=== PATIENT | male | born 1965 | race African-American/Black ===

== ENCOUNTER 2016-07-03 09:12 | Inpatient (IN) | payer OTHER ==
[2016-07-03] MEDS ORDERED: ALBUTEROL SO4 2.5/IPRATROPIUM 0.5 INH SOL 3 ML VIAL.NEB. NEB ONE ×2 (09:36→18:59)
--- NOTE | 2016-07-03 09:37 | PDOC ---
History of Present Illness - General History Source: Patient, Old Records Exam Limitations: No Limitations - History of Present Illness Initial Comments: 07/03/16 09:43 The patient is a 51-year-old man with a significant past medical history of hypertension, asthma, insulin dependent diabetes mellitus, obesity, alcohol dependence and polysubstance abuse who presents to the emergency department via EMS for further evaluation of shortness of breath for the past week. Upon ED arrival, patient was noted to have a respiratory rate of 24 and an oxygen saturation of 96 percent on room air. Patient was immediately given a nebulizer treatment which he states did not help as much. He reports endorsing an upper respiratory infection with a runny nose, an intermittent productive cough with yellow phlegm and shortness of breath and orthopnea. Patient states that a common cold triggers his asthma and shortness of breath. He also reports associated chills and back pain. Despite compliance with his inhalers, patient still feels short of breath, thus presenting to the ED today. He admits he has not been complaint with his anti-hypertensive medications in over 1 week, He denies chest pain, lightheadedness, dizziness, visual changes, weakness and tinging sensations to his extremities, syncope. Patient states that he might be in withdrawal from heroin and requests Methadone. Last inpatient detox admission was 09/2015. Allergies: No Known Drug Allergies. Almonds Past Surgical History: Colostomy reversal. Hernia Repair. Left rotator cuff surgery. Social History: Former everyday cigarette smoker. ETOH use (patient consumes 1/ 5 of liquor daily). PCP (patient consumes 2 bags 1-2 bags/week). Cocaine ( patient consumes 1 gram daily). Heroin (sniffs; 2 bags everyday or every other day) Primary Care Physician: Dr. Johanna Pascual [phone] <Elinor Hurd - Last Filed: 07/03/16 13:09> <Joe Rojas - Last Filed: 07/03/16 15:31> - General Chief Complaint: Shortness of Breath Stated Complaint: SOB Time Seen by Provider: 07/03/16 09:16 Past History <Elinor Hurd - Last Filed: 07/03/16 13:09> - Past Medical History Anemia: No Asthma: Yes Cancer: No Cardiac Disorders: No CVA: No COPD: No CHF: No Dementia: No Diabetes: Yes GI Disorders: Yes (hernia) Disorders: No HTN: Yes Hypercholesterolemia: No Kidney Stones: No Liver Disease: No Suicide Attempt (Hx): No Seizures: No Thyroid Disease: No - Surgical History Abdominal Surgery: Yes (colostomy reversal 02/12/15, hernia) Appendectomy: No Cardiac Surgery: No Cholecystectomy: No Lung Surgery: No Neurologic Surgery: No Orthopedic Surgery: Yes (left rotator cuff surgery 2 years ago) - Reproductive History Testicular Surgery: No - Psycho/Social/Smoking Cessation Hx Anxiety: No Suicidal Ideation: No Smoking History: Current every day smoker Have you smoked in the past 12 months: Yes Number of Cigarettes Smoked Daily: 2 Cigars Per Day: 0 Information on smoking cessation initiated: No 'Breaking Loose' booklet given: 09/15/15 Hx Alcohol Use: Yes Drug/Substance Use Hx: Yes (heroin "sniff") Substance Use Type: Alcohol, Cocaine, Heroin Hx Substance Use Treatment: Yes <Joe Rojas - Last Filed: 07/03/16 15:31> - Past Medical History Allergies/Adverse Reactions: Allergies Allergy/AdvReac Type Severity Reaction Status Date / Time almond oil [[place] Oil] Allergy Unknown Allergy to Verified 09/15/15 12:55 Almonds No Known Drug Allergies Allergy Verified 09/15/15 12:55 ALMONDS Allergy Severe Rash Uncoded 09/15/15 12:55 Home Medications: Ambulatory Orders Montelukast Na [Singulair -] 10 mg PO HS #30 tablet 09/01/15 Atorvastatin Ca [Lipitor] 40 mg PO HS 09/15/15 Gabapentin [Neurontin -] 300 mg PO DAILY 09/15/15 Insulin (Novolog) [Novolog] 0 units SQ TID 09/15/15 Insulin Glargine,Hum.rec.anlog [Lantus Solostar PEN (NF)] 10 units SQ HS Lisinopril [Prinivil] 40 mg PO DAILY 09/15/15 Verapamil HCl [Verapamil ER] 240 mg PO DAILY 09/15/15 Review of Systems - Review of Systems Constitutional: Yes: Chills. No: Fever HEENTM: Yes: Nose Congestion Respiratory: Yes: Cough, Shortness of Breath, SOB with Exertion Cardiac (ROS): No: Chest Pain, Edema, Syncope ABD/GI: No: Diarrhea, Vomiting Psychiatric: Yes: Other (polysubstance abuse) <Joe Rojas - Last Filed: 07/03/16 15:31> *Physical Exam - Vital Signs Last Vital Signs Temp Pulse Resp BP Pulse Ox 97.4 F L 100 H 24 152/102 96 07/03/16 09:31 07/03/16 09:31 07/03/16 09:31 07/03/16 09:31 07/03/16 09:31 - Physical Exam Comments: 07/03/16 09:43 GENERAL: The patient is awake, alert, and fully oriented, in no acute distress. HEAD: Normal with no signs of trauma. EYES: Pupils equal, round and reactive to light, extraocular movements intact, sclera anicteric, conjunctiva clear with no pallor. ENT: Ears normal, nares patent, oropharynx clear without exudates. Moist mucous membranes. NECK: Normal range of motion, supple without lymphadenopathy, JVD, or masses. LUNGS: Coarse inspiratory breath sounds. Diffuse expiratory wheezes. No focal decreased breath sounds. Overall good air entry without accessory muscle use. HEART: Regular rate, slight tachycardia without murmur or rub. ABDOMEN: Soft/nontender/nondistended. BS wnl. No guarding or rebound. No palpable masses. No hepatosplenomegaly. EXTREMITIES: Normal range of motion, no edema. No clubbing or cyanosis. No cords, erythema, or tenderness. NEUROLOGICAL: Cranial nerves II through XII grossly intact. Normal speech. PSYCH: Normal mood, normal affect. SKIN: There is a ventral incisional hernia with healed surgical scars. Warm, Dry , normal turgor, no rashes or lesions noted. <Elinor Hurd - Last Filed: 07/03/16 13:09> - Vital Signs Last Vital Signs Temp Pulse Resp BP Pulse Ox 97.4 F L 100 H 24 152/102 96 07/03/16 09:31 07/03/16 09:31 07/03/16 09:31 07/03/16 09:31 07/03/16 09:31 <Joe Rojas - Last Filed: 07/03/16 15:31> Heart Score/ECG Review #1 ECG reviewed & interpreted by me at: 11:21 General ECG Interpretation: Sinus Rhythm, Normal Rate (105), Normal Intervals ( qtc 494), No acute ischemic changes (TWI AVL) Compared to previous ECG there are: No significant change (08/2015) <Joe Rojas - Last Filed: 07/03/16 15:31> ED Treatment Course - LABORATORY CBC & Chemistry Diagram: 07/03/16 10:15 07/03/16 10:15 - RADIOLOGY Radiograph Interpretation: 07/03/16 12:44 EXAM: RAD/CHEST PA LAT IMPRESSION: Frontal and lateral views of the chest reveal a normal sized heart with normal vascularity. The lung vee are clear without evidence of mass or infiltrate. The costophrenic sulci are clear. The mediastinal and soft tissue structures as visualized are normal. There is osteopenia of the dorsal spine with mild wedging. There is mixed lucency and sclerosis in the right humeral head raising the question of avascular necrosis. Consider specific views of the right shoulder. - Medications Given in the ED: ED Medications Discontinued Medications Generic Name Dose Route Start Last Admin Trade Name Freq PRN Reason Stop Dose Admin Albuterol/Ipratropium 1 amp 07/03/16 09:36 07/03/16 09:30 Duoneb - NEB 07/03/16 09:37 1 amp NOW ONE Administration <Elinor Hurd - Last Filed: 07/03/16 13:09> - LABORATORY CBC & Chemistry Diagram: 07/03/16 10:15 07/03/16 10:15 <Joe Rojas - Last Filed: 07/03/16 15:31> Medical Decision Making - Medical Decision Making 07/03/16 12:[address] Schafer. 07/03/16 13:[address] Schafer. Immediate connection. Case was discussed. <Elinor Hurd - Last Filed: 07/03/16 13:09> - Medical Decision Making 07/03/16 10:21 A portion of this note was documented by scribe services under my direction. I have reviewed the details of the note, within reason, and agree with the documentation with the following case summary and management plan written by me. 51-year-old male with history of hypertension, diabetes, polysubstance abuse, asthma presents with asthma exacerbation/worsening cough and shortness of breath in the setting of URI symptoms for the last week. No chest pain or pressure, no leg swelling. Vitals as noted, afebrile, O2 sat within normal limits. Positive dry cough at bedside, diffuse expiratory wheezing without focally decreased breath sounds No edema 51-year-old male with asthma exacerbation in the setting of likely viral URI. Has general noncompliance with his medications, hypertensive here, but does not appear to be ACS related. Rule out pneumonia. Labs Chest x-ray, EKG Nebulizers, steroids Reassess 07/03/16 11:35 No leukocytosis, chemistries are within normal limits except for insignificantly elevated transaminases, troponin negative. EKG is nonischemic, old T wave inversions noted in 1 and aVL. Received nebs, feels better now talking on his cell phone with friends. Check CXR, dispo accordingly. 07/03/16 12:32 Chest x-ray shows clear lungs, pt remains tachypneic with coarse breath sounds and diffuse wheezing. Feels very dyspneic walking 15ft to/from restroom. Will admit for further management. 07/03/16 13:07 Accepted for inpatient med/surg by Dr. Schafer. <Joe Rojas - Last Filed: 07/03/16 15:31> *DC/Admit/Observation/Transfer - Attestations Scribe Attestion: 07/03/16 09:44 Documentation prepared by Elinor Hurd, acting as medical care evaluation specialist for Joe Rojas MD. <Elinor Hurd - Last Filed: 07/03/16 13:09> - Discharge Dispostion Admit: Yes <Joe Rojas - Last Filed: 07/03/16 15:31> Diagnosis at time of Disposition: Asthma exacerbation - Referrals
[2016-07-03] MEDS ORDERED: predniSONE 20 MG TABLET (UD) PO ONE (10:07)
[2016-07-03] MEDS ORDERED: ALBUTEROL SO4 0.083% IH SOL 2.5 MG/3 ML VIAL.NEB. NEB PRN (10:12)
[2016-07-03] MEDS ORDERED: METHADONE HCL 10 MG TABLET PO ONE (10:14)
[2016-07-03] MEDS ORDERED: METHADONE HCL 10 MG TABLET ONE (10:22)
[2016-07-03] MEDS ORDERED: predniSONE 20 MG TABLET (UD) ONE (10:22)
[2016-07-03 10:38] LABS: BASOPHIL 1.4 % (0-2.0); EOSINOPHIL 2.4 % (0-4.5); MCH 27.4 pg (25.7-33.7); MCHC 31.4 g/dl (32.0-35.9); MEAN CELL VOLUME 87.2 fl (80-96); MEAN PLT VOLUME 7.5 fl (7.5-11.1); NEUTROPHILS 58.3 % (42.8-82.8); PLATELET COUNT 389 K/MM3 (134-434); RDW 17.1 % (11.9-15.9); WHITE BLOOD COUNT 8.7 K/mm3 (4.0-10.0)
[2016-07-03 10:52] LABS: ALBUMIN 3.5 g/dl (3.4-5.0); ANION GAP 4 (8-16); CALCIUM 9.3 mg/dL (8.5-10.1); CO2 31 mmol/L (21-32); CREATININE 1.1 mg/dL (0.7-1.3); GLUCOSE,RANDOM 127 mg/dL (74-106); SGOT/AST 44 U/L (15-37)
[2016-07-03 11:00] LABS: ALK PHOS 125 U/L (45-117); BILIRUBIN,TOTAL 0.7 mg/dL (0.2-1.0); SGPT/ALT 83 U/L (12-78); TROPONIN I < 0.02 ng/ml (0.00-0.05)
--- NOTE | 2016-07-03 11:48 | EKG ---
Test Reason : Blood Pressure : / mmHG Vent. Rate : 105 BPM Atrial Rate : 105 BPM P-R Int : 154 ms QRS Dur : 082 ms QT Int : 374 ms P-R-T Axes : 074 056 071 degrees QTc Int : 494 ms SINUS TACHYCARDIA CANNOT RULE OUT ANTERIOR INFARCT , AGE UNDETERMINED ABNORMAL ECG NO PREVIOUS ECGS AVAILABLE Confirmed by RADHA CARNEY MD ([id number]) on 07/03/2016 11:48:29 AM Referred By: Confirmed By:RADHA CARNEY MD
[2016-07-03] MEDS ORDERED: ALBUTEROL SO4 0.083% IH SOL 2.5 MG/3 ML VIAL.NEB. NEB ONE ×3 (12:37→15:31)
--- NOTE | 2016-07-03 14:15 | HP ---
Admitting History and Physical - Primary Care Physician PCP: Erasto Schafer - Admission Chief Complaint: sob History of Present Illness: The patient is a 51-year-old man with a significant past medical history of hypertension, asthma, insulin dependent diabetes mellitus, obesity, alcohol dependence and polysubstance abuse who presents to the emergency department via EMS for further evaluation of shortness of breath for the past week. Upon ED arrival, patient was noted to have a respiratory rate of 24 and an oxygen saturation of 96 percent on room air. Patient was immediately given a nebulizer treatment which he states did not help as much. He reports endorsing an upper respiratory infection with a runny nose, an intermittent productive cough with yellow phlegm and shortness of breath and orthopnea. - Past Medical History Cardiovascular: Yes: HTN Pulmonary: Yes: Asthma Endocrine: Yes: Diabetes Mellitus - Smoking History Smoking history: Current every day smoker Have you smoked in the past 12 months: Yes Aproximately how many cigarettes per day: 2 - Alcohol/Substance Use Hx Alcohol Use: Yes Home Medications - Allergies Allergies/Adverse Reactions: Allergies Allergy/AdvReac Type Severity Reaction Status Date / Time almond oil [[place] Oil] Allergy Unknown Allergy to Verified 09/15/15 12:55 Almonds No Known Drug Allergies Allergy Verified 09/15/15 12:55 ALMONDS Allergy Severe Rash Uncoded 09/15/15 12:55 - Home Medications Home Medications: Ambulatory Orders Montelukast Na [Singulair -] 10 mg PO HS #30 tablet 09/01/15 Atorvastatin Ca [Lipitor] 40 mg PO HS 09/15/15 Gabapentin [Neurontin -] 300 mg PO DAILY 09/15/15 Insulin (Novolog) [Novolog] 0 units SQ TID 09/15/15 Insulin Glargine,Hum.rec.anlog [Lantus Solostar PEN (NF)] 10 units SQ HS Lisinopril [Prinivil] 40 mg PO DAILY 09/15/15 Verapamil HCl [Verapamil ER] 240 mg PO DAILY 09/15/15 Family Disease History - Family Disease History Family Disease History: CA: Father () Physical Examination Vital Signs: Vital Signs Temperature 98.3 F 07/03/16 12:30 Pulse Rate 104 H 07/03/16 12:30 Respiratory Rate 22 07/03/16 12:30 Blood Pressure 151/82 07/03/16 12:30 O2 Sat by Pulse Oximetry (%) 96 07/03/16 12:30 Problem List - Problems (1) Asthma exacerbation Code(s): J45.901 - UNSPECIFIED ASTHMA WITH (ACUTE) EXACERBATION (2) Asthma Code(s): J45.909 - UNSPECIFIED ASTHMA, UNCOMPLICATED Qualifiers: (3) Alcohol dependence Code(s): F10.20 - ALCOHOL DEPENDENCE, UNCOMPLICATED Assessment/Plan Laboratory Tests 07/03/16 07/03/16 07/03/16 10:15 10:15 10:15 WBC 8.7 RBC 5.11 Hgb 14.0 D Hct 44.6 D MCV 87.2 MCHC 31.4 L RDW 17.1 H Plt Count 389 D MPV 7.5 Neutrophils % 58.3 Lymphocytes % 27.3 Monocytes % 10.6 H Eosinophils % 2.4 Basophils % 1.4 Sodium 135 L Cancelled Potassium 4.8 Cancelled Chloride 100 Cancelled Carbon Dioxide 31 Cancelled Anion Gap 4 L Cancelled BUN 6 L D Cancelled Creatinine 1.1 Cancelled Creat Clearance w eGFR > 60 Cancelled Random Glucose 127 H Cancelled Calcium 9.3 Cancelled Magnesium 2.0 Total Bilirubin 0.7 D Cancelled AST 44 H D Cancelled ALT 83 H D Cancelled Alkaline Phosphatase 125 H Cancelled Creatine Kinase 359 H Creatine Kinase Index 0.8 CK-MB (CK-2) 2.838 CK-MB (CK-2) Rel Index Troponin I < 0.02 Total Protein 8.0 Cancelled Albumin 3.5 Cancelled 07/03/16 10:15 WBC RBC Hgb Hct MCV MCHC RDW Plt Count MPV Neutrophils % Lymphocytes % Monocytes % Eosinophils % Basophils % Sodium Potassium Chloride Carbon Dioxide Anion Gap BUN Creatinine Creat Clearance w eGFR Random Glucose Calcium Magnesium Total Bilirubin AST ALT Alkaline Phosphatase Creatine Kinase Creatine Kinase Index CK-MB (CK-2) CK-MB (CK-2) Rel Index Cancelled Troponin I Total Protein Albumin Active Medications Generic Name Dose Route Start Last Admin Trade Name Freq PRN Reason Stop Dose Admin Atorvastatin Calcium 40 mg 07/03/16 22:00 Lipitor - PO HS EDITH Gabapentin 300 mg 07/04/16 10:00 Neurontin - PO DAILY EDITH Ceftriaxone Sodium 1 gm/ 100 mls @ 200 mls/hr 07/03/16 10:00 Dextrose IVPB 07/03/16 11:59 DAILY [facility] Lisinopril 40 mg 07/04/16 10:00 Prinivil PO DAILY [facility] Methylprednisolone Sodium Succinate 40 mg 07/03/16 18:00 Solu-Medrol - IVPB Q8H-IV EDITH Montelukast Sodium 10 mg 07/03/16 22:00 Singulair - PO HS [facility] Non-Formulary Medication 15 units 07/03/16 22:00 Insulin Glargine,Hum.Rec.Anlog SQ HS [facility] Verapamil HCl 240 mg 07/04/16 10:00 Calan Sr - PO DAILY [facility] 1.asthm aexacerbation iv steroids duo nebs 2.pna iv abx 3.dm insulin bgms 4.htn on meds stable 5.etoh dependance watch for withdrawl
[2016-07-03 14:54] VITALS: BMI 37.6
[2016-07-03] MEDS ORDERED: CEFTRIAXONE 50 ML ONE (15:41)
[2016-07-03] MEDS: CEFTRIAXONE 50 ML IVPB SCH (15:55)
[2016-07-03] MEDS: methylPREDNISolone NA SUCC 40 MG/1 ML VIAL IVPB SCH (18:00)
[2016-07-03] MEDS ORDERED: methylPREDNISolone NA SUCC 40 MG/1 ML VIAL ONE (18:09)
[2016-07-03] MEDS: ALBUTEROL SO4 2.5/IPRATROPIUM 0.5 INH SOL 3 ML VIAL.NEB. NEB PRN (18:50)
[2016-07-03] MEDS: ZOLPIDEM TARTRATE 5 MG TABLET PO PRN (21:37)
[2016-07-03] MEDS: ATORVASTATIN CA 20 MG TABLET (FP) PO SCH (21:37)
[2016-07-03] MEDS: MONTELUKAST NA 10 MG TABLET PO SCH (21:38)
[2016-07-03] MEDS: INSULIN DETEMIR 100 UNITS/ML MDV SQ SCH (21:41)
[2016-07-03] MEDS ORDERED: VERAPAMIL HCL 240 MG E.R. TABLET (FP) PO ONE (22:30)
[2016-07-03] MEDS ORDERED: ACETAMINOPHEN 325 MG TABLET (FP) PO PRN (23:44)
[2016-07-03] MEDS: oxyCODONE HCL 5 MG TABLET PO PRN (23:50)
[2016-07-03] MEDS: ACETAMINOPHEN 325 MG TABLET (FP) PO PRN (23:51)
[2016-07-04] MEDS: methylPREDNISolone NA SUCC 40 MG/1 ML VIAL IVPB SCH ×3 (01:28→17:05)
[2016-07-04] MEDS: ALBUTEROL SO4 2.5/IPRATROPIUM 0.5 INH SOL 3 ML VIAL.NEB. NEB PRN ×3 (03:36→16:57)
[2016-07-04] MEDS: oxyCODONE HCL 5 MG TABLET PO PRN ×3 (05:48→22:42)
[2016-07-04] MEDS: ACETAMINOPHEN 325 MG TABLET (FP) PO PRN ×2 (05:49→22:42)
[2016-07-04] MEDS: VERAPAMIL HCL 240 MG E.R. TABLET (FP) PO SCH (09:47)
[2016-07-04] MEDS: GABAPENTIN 300 MG CAPSULE (FP) PO SCH (09:47)
[2016-07-04] MEDS: LISINOPRIL 20 MG TABLET (FP) PO SCH (09:48)
[2016-07-04] MEDS: CEFTRIAXONE 50 ML IVPB SCH (09:48)
[2016-07-04] MEDS ORDERED: chlordiazePOXIDE HCL 25 MG CAPSULE PO ONE (11:14)
[2016-07-04] MEDS ORDERED: chlordiazePOXIDE HCL 25 MG CAPSULE PO PRN (11:14)
--- NOTE | 2016-07-04 11:18 | CONSULT ---
Consult Detox [facility] Reason for Current Admission/Consult: Heroin & Alcohol withdrawal sx. Referred by:: Erasto Schafer MD - History History of Present Illness: 51 Y/O man with a long hx. of drug & alcohol dependence is admitted because of chest pain & SOB. Pt. claims that he is using heroin since last year. Pt. is very agitated,anxious,sweating and c/o severe withdrawal sx. - History Source History Provided By: Patient, Medical Record - Alcohol/Substance Use Hx Alcohol Use: Yes - Current Drug/Alcohol Use Alcohol Route: Oral Frequency: Daily Amount used: [place]ognac 1-2 pints Age of first use: 22 Heroin Route: Inhalation Frequency: Daily Amount used: 3 bags Age of first use: 51 Date of Last Use: 07/02/16 - Past Medical History Cardio/Vascular: Yes: HTN Pulmonary: Yes: Asthma Endocrine: Yes: Diabetes Mellitus - Significant Medical Findings: Laboratory Tests 07/03/16 07/03/16 07/03/16 10:15 10:15 10:15 WBC 8.7 RBC 5.11 Hgb 14.0 D Hct 44.6 D MCV 87.2 MCHC 31.4 L RDW 17.1 H Plt Count 389 D MPV 7.5 Neutrophils % 58.3 Lymphocytes % 27.3 Monocytes % 10.6 H Eosinophils % 2.4 Basophils % 1.4 Sodium 135 L Cancelled Potassium 4.8 Cancelled Chloride 100 Cancelled Carbon Dioxide 31 Cancelled Anion Gap 4 L Cancelled BUN 6 L D Cancelled Creatinine 1.1 Cancelled Creat Clearance w eGFR > 60 Cancelled POC Glucometer Random Glucose 127 H Cancelled Calcium 9.3 Cancelled Magnesium 2.0 Total Bilirubin 0.7 D Cancelled AST 44 H D Cancelled ALT 83 H D Cancelled Alkaline Phosphatase 125 H Cancelled Creatine Kinase 359 H Creatine Kinase Index 0.8 CK-MB (CK-2) 2.838 CK-MB (CK-2) Rel Index Troponin I < 0.02 Total Protein 8.0 Cancelled Albumin 3.5 Cancelled 07/03/16 07/03/16 07/04/16 10:15 20:59 05:40 WBC RBC Hgb Hct MCV MCHC RDW Plt Count MPV Neutrophils % Lymphocytes % Monocytes % Eosinophils % Basophils % Sodium Potassium Chloride Carbon Dioxide Anion Gap BUN Creatinine Creat Clearance w eGFR POC Glucometer 192 267 Random Glucose Calcium Magnesium Total Bilirubin AST ALT Alkaline Phosphatase Creatine Kinase Creatine Kinase Index CK-MB (CK-2) CK-MB (CK-2) Rel Index Cancelled Troponin I Total Protein Albumin labs noted COWS - Scale Resting Pulse: 2= HI 101-120 Sweatin=Flushed/Facial Moisture Restless Observation: 1= Difficult to Sit Still Pupil Size: 1= Pupils >than Normal Bone or Joint Aches: 2= Severe Diffuse Aches Runny Nose/ Eye Tearin= Runny Nose/Eyes GI Upset > 30mins: 2= Nausea/Diarrhea Tremor Observation: 2= Slight Tremor Visible Yawning Observation: 1= 1-2x During Session Anxiety or Irritability: 2=Irritable/Anxious Goose Flesh Skin: 0=Smooth Skin COWS Score: 17 CIWA Score - CIWA Score Nausea/Vomitin-Mild Nausea/No Vomiting Muscle Tremors: 3 Anxiety: 4-Mod. Anxious/Guarded Agitation: 4-Moderately Restless Paroxysmal Sweats: 3 Orientation: 0-Oriented Tacttile Disturbances: 1-Very Mild Itch/Numbness Auditory Disturbances: 0-None Visual Disturbances: 0-None Headache: 0-None Present CIWA-Ar Total Score: 16 Assessment Plan - Diagnosis (1) Alcohol dependence with uncomplicated withdrawal Status: Acute (2) Opioid dependence with withdrawal Status: Acute - Plan Plan: Detox with methadone & librium - Medication Detox Regimen/Protocol: Methadone/Librium
[2016-07-04] MEDS ORDERED: METHADONE HCL 10 MG TABLET PO ONE (12:30)
--- NOTE | 2016-07-04 13:02 | CONSULT ---
Consult Consult Specialty:: infectious diseases Reason for Consultation:: pneumonia, - History of Present Illness Chief Complaint: sob History of Present Illness: 51-year-old man with a significant past medical history of hypertension, asthma , insulin dependent diabetes mellitus, obesity, alcohol dependence and polysubstance abuse who was admitted to the hospital because of tachypnoea and severe sob patient mentions that he was so sob and he took treatment which did not help him patient called adoption social worker and ambulance was called and patient was brought to the hospital patient also mentions that he has been producing yellowish tick sputum and he still is doing so patient denies fever he does sweat a lot and has always done so - History Source History Provided By: Patient Limitations to Obtaining History: No Limitations - Past Medical History Cardio/Vascular: Yes: HTN Pulmonary: Yes: Asthma Endocrine: Yes: Diabetes Mellitus - Alcohol/Substance Use Hx Alcohol Use: Yes - Smoking History Smoking history: Current every day smoker Have you smoked in the past 12 months: Yes Aproximately how many cigarettes per day: 2 Home Medications - Allergies Allergies/Adverse Reactions: Allergies Allergy/AdvReac Type Severity Reaction Status Date / Time almond oil [[place] Oil] Allergy Unknown Allergy to Verified 09/15/15 12:55 Almonds No Known Drug Allergies Allergy Verified 09/15/15 12:55 ALMONDS Allergy Severe Rash Uncoded 09/15/15 12:55 - Home Medications Home Medications: Ambulatory Orders Montelukast Na [Singulair -] 10 mg PO HS #30 tablet 09/01/15 Atorvastatin Ca [Lipitor] 40 mg PO HS 09/15/15 Gabapentin [Neurontin -] 300 mg PO DAILY 09/15/15 Insulin (Novolog) [Novolog] 0 units SQ TID 09/15/15 Insulin Glargine,Hum.rec.anlog [Lantus Solostar PEN (NF)] 10 units SQ HS Lisinopril [Prinivil] 40 mg PO DAILY 09/15/15 Verapamil HCl [Verapamil ER] 240 mg PO DAILY 09/15/15 Family Disease History - Family Disease History Family Disease History: CA: Father () Review of Systems - Review of Systems Constitutional: reports: Other Eyes: reports: No Symptoms HENT: reports: No Symptoms Neck: reports: No Symptoms Cardiovascular: reports: No Symptoms Respiratory: reports: Cough, SOB, SOB on Exertion, Wheezing Gastrointestinal: reports: No Symptoms Genitourinary: reports: No Symptoms Musculoskeletal: reports: No Symptoms Integumentary: reports: No Symptoms Neurological: reports: No Symptoms Endocrine: reports: No Symptoms Hematology/Lymphatic: reports: No Symptoms Psychiatric: reports: No Symptoms Physical Exam Vital Signs: Vital Signs Temperature 98.5 F 07/04/16 06:10 Pulse Rate 102 H 07/04/16 10:10 Respiratory Rate 22 07/04/16 09:49 Blood Pressure 174/95 07/04/16 09:49 O2 Sat by Pulse Oximetry (%) 97 07/04/16 10:10 Constitutional: Yes: Well Nourished, Obese Eyes: Yes: Conjunctiva Clear HENT: Yes: Atraumatic Neck: Yes: Supple, Trachea Midline Cardiovascular: Yes: Regular Rate and Rhythm Respiratory: Yes: Regular, Rhonchi, SOB, SOB on Exertion, Wheezes, Other ( yellow sputum production) Gastrointestinal: Yes: Normal Bowel Sounds, Soft Musculoskeletal: Yes: WNL Extremities: Yes: WNL Integumentary: Yes: WNL Wound/Incision: Yes: Clean/Dry Neurological: Yes: Alert, Oriented Psychiatric: Yes: Alert, Oriented Imaging - Results Chest X-ray: Report Reviewed, Image Reviewed Assessment/Plan Problems (1) Asthma exacerbation Code(s): J45.901 - UNSPECIFIED ASTHMA WITH (ACUTE) EXACERBATION (2) Asthma Code(s): J45.909 - UNSPECIFIED ASTHMA, UNCOMPLICATED Qualifiers: (3) Alcohol dependence Code(s): F10.20 - ALCOHOL DEPENDENCE, UNCOMPLICATED 4 pneumonia i have a strong suspicion patient mullins superimposed pneumonia. if the patient does not improve will get a ct scan of the chest plan incentive kerry changed abx to unasyn
[2016-07-04 13:56] LABS: URINE MARIJUANA THC NEGATIVE ng/ml (CUTOFF=50)
[2016-07-04] MEDS: AMPICILLIN NA/SULBACTAM NA 3 GM in SODIUM CHLORIDE 100 ML IVPB SCH ×2 (16:10→17:05)
[2016-07-04] MEDS: chlordiazePOXIDE HCL 25 MG CAPSULE PO SCH ×2 (17:05→22:43)
--- NOTE | 2016-07-04 19:48 | PN ---
Progress Note, Physician - Current Medication List Current Medications: Active Medications Acetaminophen (Tylenol -) 325 mg PO Q6H PRN PRN Reason: PAIN Last Admin: 07/04/16 11:04 Dose: 325 mg Acetaminophen (Tylenol -) 650 mg PO Q6H PRN PRN Reason: PAIN Last Admin: 07/04/16 05:49 Dose: 650 mg Albuterol/Ipratropium (Duoneb -) 1 amp NEB Q4H PRN Last Admin: 07/04/16 16:57 Dose: 1 amp Atorvastatin Calcium (Lipitor -) 20 mg PO [facility] Last Admin: 07/03/16 21:37 Dose: 20 mg Chlordiazepoxide HCl (Librium -) 25 mg PO Q4H PRN PRN Reason: WITHDRAWAL(CONT SUBST) Stop: 07/07/16 11:13 Chlordiazepoxide HCl (Librium -) 50 mg PO [id number] [facility] Stop: 07/05/16 11:01 Last Admin: 07/04/16 17:05 Dose: 50 mg Chlordiazepoxide HCl (Librium -) 25 mg PO [id number] [facility] Stop: 07/06/16 11:01 Chlordiazepoxide HCl (Librium -) 15 mg PO [id number] [facility] Stop: 07/07/16 11:01 Gabapentin (Neurontin -) 300 mg PO DAILY [facility] Last Admin: 07/04/16 09:47 Dose: 300 mg Ampicillin Sodium/Sulbactam (Sodium 3 gm/ Sodium Chloride) 100 mls @ 200 mls/ hr IVPB Q8H-IV [facility] Last Admin: 07/04/16 17:05 Dose: 200 mls/hr Insulin Detemir (Levemir Vial) 15 units SQ [facility] Last Admin: 07/03/16 21:41 Dose: 15 units Lisinopril (Prinivil) 40 mg PO DAILY [facility] Last Admin: 07/04/16 09:48 Dose: 40 mg Methadone HCl (Dolophine -) 10 mg PO ONCE ONE Stop: 07/07/16 10:01 Methadone HCl (Dolophine -) 15 mg PO ONCE ONE Stop: 07/05/16 23:59 Methadone HCl (Dolophine -) 5 mg PO ONCE@0600 ONE Stop: 07/08/16 23:59 Methylprednisolone Sodium Succinate (Solu-Medrol -) 40 mg IVPB Q8H-IV [facility] Last Admin: 07/04/16 17:05 Dose: 40 mg Montelukast Sodium (Singulair -) 10 mg PO HS [facility] Last Admin: 07/03/16 21:38 Dose: 10 mg Oxycodone HCl (Roxicodone -) 5 mg PO Q6H PRN PRN Reason: PAIN Last Admin: 07/04/16 11:04 Dose: 5 mg Oxycodone HCl (Roxicodone -) 10 mg PO Q6H PRN PRN Reason: PAIN Last Admin: 07/04/16 05:48 Dose: 10 mg Verapamil HCl (Calan Sr -) 240 mg PO DAILY [facility] Last Admin: 07/04/16 09:47 Dose: 240 mg Zolpidem Tartrate (Ambien -) 5 mg PO HS PRN PRN Reason: INSOMNIA Last Admin: 07/03/16 21:37 Dose: 5 mg - Objective Vital Signs: Vital Signs Temperature 98.5 F 07/04/16 14:25 Pulse Rate 99 H 07/04/16 14:25 Respiratory Rate 22 07/04/16 09:49 Blood Pressure 146/96 07/04/16 14:25 O2 Sat by Pulse Oximetry (%) 95 07/04/16 14:00 Constitutional: Yes: No Distress HENT: Yes: Atraumatic Neck: Yes: Supple Cardiovascular: Yes: Regular Rate and Rhythm Respiratory: Yes: CTA Bilaterally Gastrointestinal: Yes: Normal Bowel Sounds Extremities: Yes: WNL Neurological: Yes: Alert, Oriented Problem List - Problems (1) Asthma exacerbation Code(s): J45.901 - UNSPECIFIED ASTHMA WITH (ACUTE) EXACERBATION (2) Asthma Code(s): J45.909 - UNSPECIFIED ASTHMA, UNCOMPLICATED Qualifiers: (3) Alcohol dependence Code(s): F10.20 - ALCOHOL DEPENDENCE, UNCOMPLICATED Assessment/Plan 1.asthm aexacerbation iv steroids duo nebs 2.pna iv abx 3.dm insulin bgms 4.htn on meds stable 5.etoh dependance watch for withdrawl 6.on metadone and librium
[2016-07-04] MEDS: ZOLPIDEM TARTRATE 5 MG TABLET PO PRN (21:19)
[2016-07-04] MEDS: ATORVASTATIN CA 20 MG TABLET (FP) PO SCH (21:19)
[2016-07-04] MEDS: MONTELUKAST NA 10 MG TABLET PO SCH (21:20)
[2016-07-04] MEDS: INSULIN DETEMIR 100 UNITS/ML MDV SQ SCH (21:24)
[2016-07-04] MEDS ORDERED: INSULIN (NOVOLOG) ASPART 100 UNITS/ML 10ML VIAL SQ ONE (21:45)
[2016-07-05] MEDS ORDERED: PT OWN MED DRAWER 7, Y5N ONE ×2 (01:32→10:13)
[2016-07-05] MEDS: AMPICILLIN NA/SULBACTAM NA 3 GM in SODIUM CHLORIDE 100 ML IVPB SCH ×3 (01:39→18:02)
[2016-07-05] MEDS: methylPREDNISolone NA SUCC 40 MG/1 ML VIAL IVPB SCH ×4 (01:40→21:08)
[2016-07-05] MEDS: chlordiazePOXIDE HCL 25 MG CAPSULE PO SCH ×4 (06:19→23:24)
[2016-07-05] MEDS: ALBUTEROL SO4 2.5/IPRATROPIUM 0.5 INH SOL 3 ML VIAL.NEB. NEB PRN ×2 (07:02→09:40)
[2016-07-05] MEDS ORDERED: METHADONE HCL 5 MG TABLET PO ONE (10:00)
[2016-07-05] MEDS: GABAPENTIN 300 MG CAPSULE (FP) PO SCH (10:14)
[2016-07-05] MEDS: VERAPAMIL HCL 240 MG E.R. TABLET (FP) PO SCH (10:14)
[2016-07-05] MEDS: LISINOPRIL 20 MG TABLET (FP) PO SCH (10:14)
--- NOTE | 2016-07-05 13:36 | CON.PULM ---
Consult Consult Specialty:: PULMONARY Referred by:: JOHANN Reason for Consultation:: SOB/ASTHMA - History of Present Illness Chief Complaint: SOB/COUGH/WHEEZE History of Present Illness: 51 BLACK MALE WITH H/O COPD,ACTIVE SMOKING,RECENT [facility] VIA PSG AT [facility],DOES NOT HAVE NIVPPV OF YET M. OBESITY,IDDM,HTN PRESENTS TO ER WITH COUGH/WHEEZE/SOB/SCANT SPUTUM NO FEVER POSSIBLE SICK CONTACTS. - History Source History Provided By: Patient, Medical Record Limitations to Obtaining History: No Limitations - Past Medical History TRAFFIC REPORTER: No: Alzheimer's Cardio/Vascular: Yes: HTN. No: AFIB Pulmonary: Yes: Asthma Hepatobiliary: No: Cirrhosis Renal/: No: Renal Failure Heme/Onc: No: Anemia Psych: Yes: Addictions Musculoskeletal: No: Chronic low back pain ENT: No: Allergic Rhinitis Endocrine: Yes: Diabetes Mellitus - Alcohol/Substance Use Hx Alcohol Use: Yes - Smoking History Smoking history: Current every day smoker Have you smoked in the past 12 months: Yes Aproximately how many cigarettes per day: 2 - Social History Usual Living Arrangement: Alone Place of : [facility] Home Medications - Allergies Allergies/Adverse Reactions: Allergies Allergy/AdvReac Type Severity Reaction Status Date / Time almond oil [[place] Oil] Allergy Unknown Allergy to Verified 09/15/15 12:55 Almonds No Known Drug Allergies Allergy Verified 09/15/15 12:55 ALMONDS Allergy Severe Rash Uncoded 09/15/15 12:55 - Home Medications Home Medications: Ambulatory Orders Montelukast Na [Singulair -] 10 mg PO HS #30 tablet 09/01/15 Atorvastatin Ca [Lipitor] 40 mg PO HS 09/15/15 Gabapentin [Neurontin -] 300 mg PO DAILY 09/15/15 Insulin (Novolog) [Novolog] 0 units SQ TID 09/15/15 Insulin Glargine,Hum.rec.anlog [Lantus Solostar PEN (NF)] 10 units SQ HS Lisinopril [Prinivil] 40 mg PO DAILY 09/15/15 Verapamil HCl [Verapamil ER] 240 mg PO DAILY 09/15/15 Family Disease History - Family Disease History Family Disease History: CA: Father () Review of Systems - Review of Systems Constitutional: denies: Fever Eyes: denies: Blurred Vision HENT: denies: Difficult Swallowing Neck: denies: Decreased ROM Cardiovascular: reports: Palpitations, Shortness of Breath. denies: Chest Pain Respiratory: reports: Cough, Exercise Intolerance, SOB on Exertion, Wheezing. denies: Hemoptysis Gastrointestinal: denies: Abdominal Pain Genitourinary: reports: No Symptoms Breasts: reports: No Symptoms Reported Musculoskeletal: reports: No Symptoms Integumentary: reports: No Symptoms Neurological: reports: No Symptoms Endocrine: reports: No Symptoms Hematology/Lymphatic: reports: No Symptoms Psychiatric: reports: No Symptoms Physical Exam Vital Sings: Vital Signs Temperature 98.0 F 07/05/16 09:00 Pulse Rate 94 H 07/05/16 09:40 Respiratory Rate 20 07/05/16 09:00 Blood Pressure 162/100 07/05/16 09:00 O2 Sat by Pulse Oximetry (%) 94 L 07/05/16 09:40 Constitutional: Yes: Calm Eyes: Yes: EOM Intact HENT: Yes: Normocephalic Neck: Yes: Trachea Midline Cardiovascular: Yes: Regular Rate and Rhythm, S1, S2 Respiratory: Yes: Rhonchi, Wheezes Gastrointestinal: Yes: Soft, Abdomen, Obese Edema: LLE: 1+, RLE: 1+ Integumentary: Yes: WNL Neurological: Yes: WNL ...Motor Strength: WNL Psychiatric: Yes: WNL Labs: REVIEWED Imaging - Results Chest X-ray: Image Reviewed EKG: Report Reviewed Problem List - Problems (1) COPD exacerbation Code(s): J44.1 - CHRONIC OBSTRUCTIVE PULMONARY DISEASE W (ACUTE) EXACERBATION (2) Asthma exacerbation Code(s): J45.901 - UNSPECIFIED ASTHMA WITH (ACUTE) EXACERBATION (3) Bronchitis Code(s): J40 - BRONCHITIS, NOT SPECIFIED ACUTE OR CHRONIC (4) Sleep apnea syndrome Code(s): G47.30 - SLEEP APNEA, UNSPECIFIED Assessment/Plan AGREE WITH STEROIDS/BRONCHODILATORS/ANTIBIOTICS/O2 SUPPLEMENTATION/SLEEP APNEA SCREEN ORDERED WITHDRAWAL PROTOCOL/DIABETES MANAGEMENT WILL FOLLOW Bebe GONZALEZ MD
[2016-07-05] MEDS ORDERED: INSULIN (NOVOLOG) ASPART 100 UNITS/ML 10ML VIAL SQ ONE ×2 (15:30→17:00)
--- NOTE | 2016-07-05 15:42 | PN ---
Progress Note, Physician History of Present Illness: stable no new events - Current Medication List Current Medications: Active Medications Acetaminophen (Tylenol -) 325 mg PO Q6H PRN PRN Reason: PAIN Last Admin: 07/04/16 11:04 Dose: 325 mg Acetaminophen (Tylenol -) 650 mg PO Q6H PRN PRN Reason: PAIN Last Admin: 07/04/16 22:42 Dose: 650 mg Albuterol[facility]pratropium ([facility]) [facility] Atorvastatin Calcium (Lipitor -) 20 mg PO [facility] Last Admin: 07/04/16 21:19 Dose: 20 mg Chlordiazepoxide HCl (Librium -) 25 mg PO Q4H PRN PRN Reason: WITHDRAWAL(CONT SUBST) Stop: 07/07/16 11:13 Chlordiazepoxide HCl (Librium -) 25 mg PO [id number] [facility] Stop: 07/06/16 11:01 Chlordiazepoxide HCl (Librium -) 15 mg PO Q8O-RRT [facility] Stop: 07/07/16 11:01 Gabapentin (Neurontin -) 300 mg PO DAILY [facility] Last Admin: 07/05/16 10:14 Dose: 300 mg Ampicillin Sodium/Sulbactam (Sodium 3 gm/ Sodium Chloride) 100 mls @ 200 mls/ hr IVPB Q8H-IV [facility] Last Admin: 07/05/16 10:14 Dose: 200 mls/hr Insulin Detemir (Levemir Vial) 15 units SQ [facility] Last Admin: 07/04/16 21:24 Dose: 15 units Lisinopril (Prinivil) 40 mg PO DAILY [facility] Last Admin: 07/05/16 10:14 Dose: 40 mg Methadone HCl (Dolophine -) 10 mg PO ONCE ONE Stop: 07/07/16 10:01 Methadone HCl (Dolophine -) 15 mg PO ONCE ONE Stop: 07/05/16 23:59 Last Admin: 07/05/16 11:22 Dose: 15 mg Methadone HCl (Dolophine -) 5 mg PO ONCE@0600 ONE Stop: 07/08/16 23:59 Methylprednisolone Sodium Succinate (Solu-Medrol -) 40 mg IVPB Q6H-IV [facility] Last Admin: 07/05/16 15:24 Dose: 40 mg Montelukast Sodium (Singulair -) 10 mg PO [facility] Last Admin: 07/04/16 21:20 Dose: 10 mg Oxycodone HCl (Roxicodone -) 5 mg PO Q6H PRN PRN Reason: PAIN Last Admin: 07/04/16 11:04 Dose: 5 mg Oxycodone HCl (Roxicodone -) 10 mg PO Q6H PRN PRN Reason: PAIN Last Admin: 07/04/16 22:42 Dose: 10 mg Verapamil HCl (Calan Sr -) 240 mg PO DAILY [facility] Last Admin: 07/05/16 10:14 Dose: 240 mg Zolpidem Tartrate (Ambien -) 5 mg PO HS PRN PRN Reason: INSOMNIA Last Admin: 07/04/16 21:19 Dose: 5 mg - Objective Vital Signs: Vital Signs Temperature 98.1 F 07/05/16 14:27 Pulse Rate 97 H 07/05/16 14:27 Respiratory Rate 20 07/05/16 09:00 Blood Pressure 160/57 07/05/16 14:27 O2 Sat by Pulse Oximetry (%) 94 L 07/05/16 09:40 Constitutional: Yes: No Distress, Calm Cardiovascular: Yes: Regular Rate and Rhythm Respiratory: Yes: Regular, Rhonchi, Wheezes (better) Gastrointestinal: Yes: Normal Bowel Sounds, Soft Musculoskeletal: Yes: WNL Extremities: Yes: WNL Neurological: Yes: Alert, Oriented Psychiatric: Yes: Alert Assessment/Plan Problems (1) Asthma exacerbation Code(s): J45.901 - UNSPECIFIED ASTHMA WITH (ACUTE) EXACERBATION (2) Asthma Code(s): J45.909 - UNSPECIFIED ASTHMA, UNCOMPLICATED Qualifiers: (3) Alcohol dependence Code(s): F10.20 - ALCOHOL DEPENDENCE, UNCOMPLICATED 4 pneumonia pul on case plan incentive kerry ct abx
[2016-07-05] MEDS: ALBUTEROL SO4 2.5/IPRATROPIUM 0.5 INH SOL 3 ML VIAL.NEB. NEB SCH ×2 (18:09→23:30)
--- NOTE | 2016-07-05 19:28 | PN ---
Progress Note, Physician - Current Medication List Current Medications: Active Medications Acetaminophen (Tylenol -) 325 mg PO Q6H PRN PRN Reason: PAIN Last Admin: 07/04/16 11:04 Dose: 325 mg Acetaminophen (Tylenol -) 650 mg PO Q6H PRN PRN Reason: PAIN Last Admin: 07/04/16 22:42 Dose: 650 mg Albuterol/Ipratropium (Duoneb -) 1 amp NEB [facility] Last Admin: 07/05/16 18:09 Dose: 1 amp Atorvastatin Calcium (Lipitor -) 20 mg PO [facility] Last Admin: 07/04/16 21:19 Dose: 20 mg Chlordiazepoxide HCl (Librium -) 25 mg PO Q4H PRN PRN Reason: WITHDRAWAL(CONT SUBST) Stop: 07/07/16 11:13 Chlordiazepoxide HCl (Librium -) 25 mg PO [id number] [facility] Stop: 07/06/16 11:01 Last Admin: 07/05/16 18:02 Dose: 25 mg Chlordiazepoxide HCl (Librium -) 15 mg PO Q3N-[facility] Stop: 07/07/16 11:01 Gabapentin (Neurontin -) 300 mg PO DAILY [facility] Last Admin: 07/05/16 10:14 Dose: 300 mg Ampicillin Sodium/Sulbactam (Sodium 3 gm/ Sodium Chloride) 100 mls @ 200 mls/ hr IVPB Q8H-IV [facility] Last Admin: 07/05/16 18:02 Dose: 200 mls/hr Insulin Aspart (Novolog Vial Sliding Scale -) 1 vial SQ [facility] PRN Reason: Protocol Insulin Detemir (Levemir Vial) 15 units SQ [facility] Last Admin: 07/04/16 21:24 Dose: 15 units Lisinopril (Prinivil) 40 mg PO DAILY [facility] Last Admin: 07/05/16 10:14 Dose: 40 mg Methadone HCl (Dolophine -) 10 mg PO ONCE ONE Stop: 07/07/16 10:01 Methadone HCl (Dolophine -) 15 mg PO ONCE ONE Stop: 07/05/16 23:59 Last Admin: 07/05/16 11:22 Dose: 15 mg Methadone HCl (Dolophine -) 5 mg PO ONCE@0600 ONE Stop: 07/08/16 23:59 Methylprednisolone Sodium Succinate (Solu-Medrol -) 40 mg IVPB Q6H-IV [facility] Last Admin: 07/05/16 15:24 Dose: 40 mg Montelukast Sodium (Singulair -) 10 mg PO HS [facility] Last Admin: 07/04/16 21:20 Dose: 10 mg Oxycodone HCl (Roxicodone -) 5 mg PO Q6H PRN PRN Reason: PAIN Last Admin: 07/04/16 11:04 Dose: 5 mg Oxycodone HCl (Roxicodone -) 10 mg PO Q6H PRN PRN Reason: PAIN Last Admin: 07/04/16 22:42 Dose: 10 mg Verapamil HCl (Calan Sr -) 240 mg PO DAILY [facility] Last Admin: 07/05/16 10:14 Dose: 240 mg Zolpidem Tartrate (Ambien -) 5 mg PO HS PRN PRN Reason: INSOMNIA Last Admin: 07/04/16 21:19 Dose: 5 mg - Objective Vital Signs: Vital Signs Temperature 98.1 F 07/05/16 14:27 Pulse Rate 97 H 07/05/16 14:27 Respiratory Rate 20 07/05/16 09:00 Blood Pressure 160/57 07/05/16 14:27 O2 Sat by Pulse Oximetry (%) 94 L 07/05/16 14:00 Constitutional: Yes: No Distress Eyes: Yes: WNL HENT: Yes: Atraumatic Neck: Yes: Supple Respiratory: Yes: Rhonchi Gastrointestinal: Yes: Normal Bowel Sounds Extremities: Yes: WNL Neurological: Yes: Alert, Oriented Problem List - Problems (1) Asthma exacerbation Code(s): J45.901 - UNSPECIFIED ASTHMA WITH (ACUTE) EXACERBATION (2) Asthma Code(s): J45.909 - UNSPECIFIED ASTHMA, UNCOMPLICATED Qualifiers: (3) Alcohol dependence Code(s): F10.20 - ALCOHOL DEPENDENCE, UNCOMPLICATED Assessment/Plan 1.asthm aexacerbation iv steroids duo nebs 2.pna iv abx 3.dm insulin bgms...blood sugar very high, pt non compliant with food 4.htn on meds stable 5.etoh dependance watch for withdrawl 6.on metadone and librium
[2016-07-05] MEDS ORDERED: INSULIN (NOVOLOG) ASPART 100 UNITS/ML 10ML VIAL ONE (21:07)
[2016-07-05] MEDS: MONTELUKAST NA 10 MG TABLET PO SCH (21:08)
[2016-07-05] MEDS: INSULIN DETEMIR 100 UNITS/ML MDV SQ SCH (21:08)
[2016-07-05] MEDS: INSULIN SLIDING SCALE (NOVOLOG) 1 VIAL SQ SCH (21:08)
[2016-07-05] MEDS: ZOLPIDEM TARTRATE 5 MG TABLET PO PRN (21:08)
[2016-07-05] MEDS: ATORVASTATIN CA 20 MG TABLET (FP) PO SCH (21:08)
[2016-07-06] MEDS ORDERED: PT OWN MED DRAWER 7, Y5N ONE ×2 (02:49→09:16)
[2016-07-06] MEDS: AMPICILLIN NA/SULBACTAM NA 3 GM in SODIUM CHLORIDE 100 ML IVPB SCH ×2 (03:01→09:16)
[2016-07-06] MEDS: methylPREDNISolone NA SUCC 40 MG/1 ML VIAL IVPB SCH ×3 (03:02→14:51)
[2016-07-06] MEDS: INSULIN SLIDING SCALE (NOVOLOG) 1 VIAL SQ SCH ×2 (06:23→11:21)
[2016-07-06] MEDS: chlordiazePOXIDE HCL 25 MG CAPSULE PO SCH ×2 (06:24→10:30)
[2016-07-06] MEDS: ALBUTEROL SO4 2.5/IPRATROPIUM 0.5 INH SOL 3 ML VIAL.NEB. NEB SCH ×3 (07:22→13:59)
[2016-07-06 09:00] VITALS: TEMP 98.7
[2016-07-06] MEDS: LISINOPRIL 20 MG TABLET (FP) PO SCH (09:13)
[2016-07-06] MEDS: VERAPAMIL HCL 240 MG E.R. TABLET (FP) PO SCH (09:13)
[2016-07-06] MEDS: GABAPENTIN 300 MG CAPSULE (FP) PO SCH (09:13)
[2016-07-06 09:44] LABS: MCH 27.9 pg (25.7-33.7); MCHC 31.7 g/dl (32.0-35.9); MEAN CELL VOLUME 87.9 fl (80-96); MEAN PLT VOLUME 7.2 fl (7.5-11.1); PLATELET COUNT 409 K/MM3 (134-434); RDW 17.3 % (11.9-15.9); WHITE BLOOD COUNT 20.5 K/mm3 (4.0-10.0)
[2016-07-06] MEDS ORDERED: METHADONE HCL 10 MG TABLET PO ONE (10:00)
[2016-07-06 10:09] LABS: ALBUMIN 3.3 g/dl (3.4-5.0); ANION GAP 5 (8-16); CALCIUM 9.2 mg/dL (8.5-10.1); CO2 32 mmol/L (21-32); CREATININE 1.1 mg/dL (0.7-1.3); SGOT/AST 11 U/L (15-37); SGPT/ALT 49 U/L (12-78)
[2016-07-06 10:11] LABS: ALK PHOS 235 U/L (45-117); BILIRUBIN,TOTAL 0.2 mg/dL (0.2-1.0); TOT PROT 7.7 g/dl (6.4-8.2)
[2016-07-06 10:25] LABS: GLUCOSE,RANDOM 385 mg/dL (74-106)
[2016-07-06] MEDS ORDERED: INSULIN (NOVOLOG) ASPART 100 UNITS/ML 10ML VIAL ONE (11:19)
[2016-07-06 12:11] LABS: PLATELET ESTIMATE ADEQUATE (NORMAL)
[2016-07-06] MEDS ORDERED: amLODIPine BESYLATE 10 MG TABLET (FP) PO ONE (13:45)
--- NOTE | 2016-07-06 14:10 | CON.CARD ---
Consult Consult Specialty:: Cardiology Referred by:: Dr. Schafer Reason for Consultation:: HTN urgency - History of Present Illness Chief Complaint: SOB History of Present Illness: 51 year old man with a history of HTN, Asthma, DMII, Obesity, FELIBERTO, polysubstance abuse including heroin, etoh, PCP, Cocaine admitted with SOB, tachypnea, orthopnea, chills, and back pain, and HTN urgency with reported noncompliance with medications for >1week. Being treated for AE COPD/Asthma. Asked to evaluate for uncontrolled HTN. Pt. seen and examined today in nad. Pt. sitting on side of bed. pt is a poor historian, awake and alert but does not provide a clear history. admits to using heroin last on sunday. denies using any other drugs including cocaine. states he takes his medication everyday. states he feels better since admission. less sob. denies any chest pain, palpitations, lightheadedness, dizziness, syncope, near syncope. no edema. - History Source History Provided By: Patient, Medical Record Limitations to Obtaining History: Poor Historian - Past Medical History Cardio/Vascular: Yes: HTN Pulmonary: Yes: Asthma Psych: Yes: Addictions Endocrine: Yes: Diabetes Mellitus - Alcohol/Substance Use Hx Alcohol Use: Yes - Smoking History Smoking history: Current every day smoker Have you smoked in the past 12 months: Yes Aproximately how many cigarettes per day: 2 - Social History Usual Living Arrangement: Alone History of Recent Travel: No Home Medications - Allergies Allergies/Adverse Reactions: Allergies Allergy/AdvReac Type Severity Reaction Status Date / Time almond oil [[place] Oil] Allergy Unknown Allergy to Verified 09/15/15 12:55 Almonds No Known Drug Allergies Allergy Verified 09/15/15 12:55 ALMONDS Allergy Severe Rash Uncoded 09/15/15 12:55 - Home Medications Home Medications: Ambulatory Orders Montelukast Na [Singulair -] 10 mg PO HS #30 tablet 09/01/15 Atorvastatin Ca [Lipitor] 40 mg PO HS 09/15/15 Gabapentin [Neurontin -] 300 mg PO DAILY 09/15/15 Insulin (Novolog) [Novolog] 0 units SQ TID 09/15/15 Insulin Glargine,Hum.rec.anlog [Lantus Solostar PEN (NF)] 10 units SQ HS Lisinopril [Prinivil] 40 mg PO DAILY 09/15/15 Verapamil HCl [Verapamil ER] 240 mg PO DAILY 09/15/15 Family Disease History - Family Disease History Family Disease History: CA: Father () Review of Systems - Review of Systems Constitutional: reports: Chills. denies: No Symptoms, Diaphoresis, Fever, Lethargy, Loss of Appetite, Malaise, Night Sweats, Unintentional Wgt. Loss, Weakness, Other Eyes: denies: No Symptoms, Blind Spots, Blurred Vision, Double Vision, Eye Pain , Floaters, Photophobia, Recent Change in Vision, Other HENT: denies: No Symptoms, Difficult Swallowing, Ear Discharge, Ear Pain, Epistaxis, Gingival Bleeding, Hearing Loss, Mouth Swelling, Nasal Congestion, Ocular Prosthesis, Throat Pain, Toothache, Ringing in Ears, Other Neck: denies: No Symptoms, Decreased ROM, Lumps, Pain on Movement, Stiffness, Swollen Glands, Tenderness, Other Cardiovascular: denies: No Symptoms, Chest Pain, Edema, Palpitations, Shortness of Breath, Other Respiratory: reports: PND, SOB, SOB on Exertion. denies: No Symptoms, Cough, Exercise Intolerance, Hemoptysis, Orthopnea, Snoring, Wheezing, Other Gastrointestinal: denies: No Symptoms, Abdominal Pain, Bloating, Constipation, Diarrhea, Dysphagia, Indigestion, Melena, Nausea, Rectal Bleeding, Vomiting, Vomiting Blood, Other Genitourinary: denies: No Symptoms, Burning, Discharge, Dysuria, Flank Pain, Frequency, Hematuria, Incontinence, Lesions, Menses, Pain, Testicular Mass, Testicular Pain, Testicular Swelling, Urgency, Vaginal Bleeding, Other Breasts: denies: No Symptoms Reported, See HPI, Breast Implants, Discharge from Nipple, Lumps, Pain, Skin Changes, Other Musculoskeletal: denies: No Symptoms, Back Pain, Crepitus, Decreased ROM, Extremity Pain, Joint Pain, Joint Swelling, Muscle Pain, Muscle Cramps, Muscle Weakness, Other Integumentary: denies: No Symptoms, Blister, Bruising, Change in Color, Eczema, Erythema, Incision, Lesions, Lump, Pallor, Pruritis, Rash, Wound, Other Neurological: denies: No Symptoms, Change in LOC, Change in Speech, Confusion, Dizziness, Headache, Incoordination, Numbness, Parasthesia, Pre-Existing Deficit , Seizure, Syncope, Tremors, Unsteady Gait, Weakness, Other Endocrine: denies: No Symptoms, Excessive Sweating, Flushing, Increased Hunger, Increased Thirst, Intolerance to Cold, Intolerance to Heat, Unexplained Weight Gain, Unexplained Weight Loss, Other Hematology/Lymphatic: denies: No Symptoms, Easily Bruised, Excessive Bleeding, Swollen Glands, Other Psychiatric: denies: No Symptoms, Altered Sleep Pattern, Anxiety, Depression, Hallucinations, Panic, Paranoia, Suicidal, Other - Risk Factors Known Risk Factors: Yes: Diabetes Mellitus, Hypertension Vital Signs: Vital Signs Temperature 98.7 F 07/06/16 08:58 Pulse Rate 105 H 07/06/16 13:24 Respiratory Rate 20 07/06/16 13:24 Blood Pressure 172/113 07/06/16 13:24 O2 Sat by Pulse Oximetry (%) 94 L 07/06/16 09:00 Constitutional: Yes: No Distress, Anxious, Obese Eyes: Yes: Conjunctiva Clear, EOM Intact, PERRL HENT: Yes: Atraumatic, Normocephalic Neck: Yes: Supple, Trachea Midline Respiratory: Yes: Regular, Wheezes. No: Rales, Rhonchi Gastrointestinal: Yes: WNL, Normal Bowel Sounds, Soft. No: Distention, Tenderness Renal/: Yes: WNL Cardiovascular: Yes: Regular Rate and Rhythm. No: Bradycardia, Tachycardia, Pulse Irregular, Gallop, Rub, Varicosities JVD: No Carotid Bruit: No PMI: Non-Displaced Heart Sounds: Yes: S1, S2. No: Split S2, S3, S4, Clicks, Gallop, Rub, Bruit Murmur: No: Systolic Murmur, Diastolic Murmur Musculoskeletal: Yes: WNL Extremities: Yes: WNL Edema: No Peripheral Pulses WNL: Yes Peripheral Pulses: 2+ Left Doralis Pedis, 2+ Right Dorsalis Pedis Integumentary: Yes: WNL Neurological: Yes: Alert, Oriented Psychiatric: Yes: Alert, Oriented - Other Data Labs, Other Data: CBC, BMP 07/06/16 09:20 07/06/16 09:20 ekg-sinus tach 105bpm, poor R progression, NSST Echo: Pending Imaging - Results Chest X-ray: Report Reviewed, Image Reviewed EKG: Report Reviewed, Image Reviewed Other: Report Reviewed, Image Reviewed Assessment/Plan 51 year old man with a history of HTN, Asthma, DMII, Obesity, FELIBERTO, polysubstance abuse including heroin, etoh, PCP, Cocaine admitted with SOB, tachypnea, orthopnea, chills, and back pain, and HTN urgency with reported noncompliance with medications for >1week. Being treated for AE COPD/Asthma. Asked to evaluate for uncontrolled HTN. HTN- uncontrolled -cont Lisinopril 40mg daily -stop verapamil -start nifedipine xl 30mg bid -start HCTZ 25mg daily -uptitrate nifedipine as needed -avoid bblockers due to cocaine use
--- NOTE | 2016-07-06 14:51 | PN ---
Progress Note, Physician History of Present Illness: no new events stable - Current Medication List Current Medications: Active Medications Acetaminophen (Tylenol -) 325 mg PO Q6H PRN PRN Reason: PAIN Last Admin: 07/04/16 11:04 Dose: 325 mg Acetaminophen (Tylenol -) 650 mg PO Q6H PRN PRN Reason: PAIN Last Admin: 07/04/16 22:42 Dose: 650 mg Albuterol/Ipratropium (Duoneb -) 1 amp [facility] Last Admin: 07/06/16 13:59 Dose: 1 amp Atorvastatin Calcium (Lipitor -) 20 mg PO [facility] Last Admin: 07/05/16 21:08 Dose: 20 mg Chlordiazepoxide HCl (Librium -) 15 mg PO [id number] Stop: 07/07/16 11:01 Gabapentin (Neurontin -) 300 mg PO DAILY [facility] Last Admin: 07/06/16 09:13 Dose: 300 mg Ampicillin Sodium/Sulbactam (Sodium 3 gm/ Sodium Chloride) 100 mls @ 200 mls/ hr IVPB Q8H-IV [facility] Last Admin: 07/06/16 09:16 Dose: 200 mls/hr Insulin Aspart (Novolog Vial Sliding Scale -) 1 vial SQ [facility] PRN Reason: Protocol Last Admin: 07/06/16 11:21 Dose: 14 units Insulin Detemir (Levemir Vial) 15 units SQ [facility] Last Admin: 07/05/16 21:08 Dose: 15 units Lisinopril (Prinivil) 40 mg PO DAILY [facility] Last Admin: 07/06/16 09:13 Dose: 40 mg Methadone HCl (Dolophine -) 15 mg PO ONCE ONE Stop: 07/05/16 23:59 Last Admin: 07/05/16 11:22 Dose: 15 mg Methadone HCl (Dolophine -) 5 mg PO ONCE@0600 ONE Stop: 07/07/16 06:01 Methylprednisolone Sodium Succinate (Solu-Medrol -) 40 mg IVPB Q6H-IV [facility] Last Admin: 07/06/16 14:51 Dose: 40 mg Montelukast Sodium (Singulair -) 10 mg PO [facility] Last Admin: 07/05/16 21:08 Dose: 10 mg Oxycodone HCl (Roxicodone -) 5 mg PO Q6H PRN PRN Reason: PAIN Last Admin: 07/04/16 11:04 Dose: 5 mg Oxycodone HCl (Roxicodone -) 10 mg PO Q6H PRN PRN Reason: PAIN Last Admin: 07/04/16 22:42 Dose: 10 mg Verapamil HCl (Calan Sr -) 240 mg PO DAILY [facility] Last Admin: 07/06/16 09:13 Dose: 240 mg Zolpidem Tartrate (Ambien -) 5 mg PO HS PRN PRN Reason: INSOMNIA Last Admin: 07/05/16 21:08 Dose: 5 mg - Objective Vital Signs: Vital Signs Temperature 98.7 F 07/06/16 08:58 Pulse Rate 105 H 07/06/16 13:24 Respiratory Rate 20 07/06/16 13:24 Blood Pressure 172/113 07/06/16 13:24 O2 Sat by Pulse Oximetry (%) 94 L 07/06/16 09:00 Constitutional: Yes: No Distress, Calm Cardiovascular: Yes: Regular Rate and Rhythm Respiratory: Yes: Regular, Poor Air Entry Gastrointestinal: Yes: Normal Bowel Sounds, Soft Musculoskeletal: Yes: WNL Extremities: Yes: WNL Neurological: Yes: Alert, Oriented Psychiatric: Yes: Alert Labs: CBC, BMP 07/06/16 09:20 07/06/16 09:20 Assessment/Plan Problems (1) Asthma exacerbation Code(s): J45.901 - UNSPECIFIED ASTHMA WITH (ACUTE) EXACERBATION (2) Asthma Code(s): J45.909 - UNSPECIFIED ASTHMA, UNCOMPLICATED Qualifiers: (3) Alcohol dependence Code(s): F10.20 - ALCOHOL DEPENDENCE, UNCOMPLICATED 4 pneumonia pul on case plan incentive kerry ct abx will consider deescalating soon rest as per the team
--- NOTE | 2016-07-06 15:28 | PN ---
Progress Note (short form) - Note Progress Note: PULMONARY VSS/AFEBRILE ANICTERIC CLEAR S1S2 OBESE NO EDEMA LABS/MEDS/NOTES/IMAGING REVIEWED - Problems (1) COPD exacerbation resolved Code(s): J44.1 - CHRONIC OBSTRUCTIVE PULMONARY DISEASE W (ACUTE) EXACERBATION (2) Asthma exacerbation resolved Code(s): J45.901 - UNSPECIFIED ASTHMA WITH (ACUTE) EXACERBATION (3) Bronchitis Code(s): J40 - BRONCHITIS, NOT SPECIFIED ACUTE OR CHRONIC (4) Sleep apnea syndrome Code(s): G47.30 - SLEEP APNEA, UNSPECIFIED Assessment/Plan agree with continuing treatment as an outpatient Bebe GONZALEZ MD Problem List - Problems (1) COPD exacerbation Code(s): J44.1 - CHRONIC OBSTRUCTIVE PULMONARY DISEASE W (ACUTE) EXACERBATION (2) Asthma exacerbation Code(s): J45.901 - UNSPECIFIED ASTHMA WITH (ACUTE) EXACERBATION (3) Bronchitis Code(s): J40 - BRONCHITIS, NOT SPECIFIED ACUTE OR CHRONIC (4) Sleep apnea syndrome Code(s): G47.30 - SLEEP APNEA, UNSPECIFIED
[2016-07-06 15:44] VITALS: BP 183/106; PULSE 107
[2016-07-06] MEDS ORDERED: predniSONE 20 MG TABLET (UD) PO SCH (15:45)
[2016-07-06] MEDS ORDERED: HYDROCHLOROTHIAZIDE 25 MG TABLET (FP) PO SCH (16:15)
--- NOTE | 2016-07-06 16:19 | DS ---
Physical Examination Vital Signs: Vital Signs Temperature 98.7 F 07/06/16 08:58 Pulse Rate 107 H 07/06/16 15:43 Respiratory Rate 20 07/06/16 15:43 Blood Pressure 183/106 07/06/16 15:43 O2 Sat by Pulse Oximetry (%) 94 L 07/06/16 09:00 Labs: CBC, BMP 07/06/16 09:20 07/06/16 09:20 Discharge Summary Reason For Visit: EXACERBATION OF ASTHMA Current Active Problems Alcohol dependence with uncomplicated withdrawal (Acute) Asthma exacerbation (Acute) Bronchitis (Acute) COPD exacerbation (Acute) Opioid dependence with withdrawal (Acute) Sleep apnea syndrome (Acute) - Instructions Diet, Activity, Other Instructions: Please Call Respiratory Department [phone] for Sleep Consultation appointment for Patient Referrals: Johanna Pascual [Primary Care Provider] - - Home Medications Comprehensive Discharge Medication List: Ambulatory Orders Montelukast Na [Singulair -] 10 mg PO HS #30 tablet 09/01/15 Atorvastatin Ca [Lipitor] 40 mg PO HS 09/15/15 Gabapentin [Neurontin -] 300 mg PO DAILY 09/15/15 Insulin (Novolog) [Novolog] 0 units SQ TID 09/15/15 Insulin Glargine,Hum.rec.anlog [Lantus Solostar PEN (NF)] 10 units SQ HS Lisinopril [Prinivil] 40 mg PO DAILY 09/15/15 Verapamil HCl [Verapamil ER] 240 mg PO DAILY 09/15/15 PT ELOPED
[2016-07-06] MEDS ORDERED: chlordiazePOXIDE 5 MG CAPSULE PO SCH (17:00)
[2016-07-06] MEDS ORDERED: NIFEdipine E.R. 30 MG TABLET (FP) PO SCH (22:00)
[2016-07-07] MEDS ORDERED: METHADONE HCL 5 MG TABLET PO ONE (06:00)
[2016-07-07] MEDS ORDERED: METHADONE HCL 10 MG TABLET PO ONE (10:00)
[2016-07-08] MEDS ORDERED: METHADONE HCL 5 MG TABLET PO ONE (06:00)
== END 2016-07-06 16:51 | disposition left against medical advice (07) | DRG 141 ==
LOC: JER 09:12 → JERBED 13:07 → INTOOBSV 13:11 → UNDOADMOB 13:11 → JERBED 13:11 → J6S 18:31 → OBSVTOIN 07-04 17:32
PROVIDERS: ADMIT Internal Medicine; ATTEND Internal Medicine
DX: J45.901 Unspecified asthma with (acute) exacerbation (principal); J44.1 Chronic obstructive pulmonary disease with (acute) exacerbation; F10.230 Alcohol dependence with withdrawal, uncomplicated; F11.23 Opioid dependence with withdrawal; J20.9 Acute bronchitis, unspecified; G47.30 Sleep apnea, unspecified; E11.9 Type 2 diabetes mellitus without complications; E66.9 Obesity, unspecified; Z68.37 Body mass index [BMI] 37.0-37.9, adult; I16.0 Hypertensive urgency; F17.210 Nicotine dependence, cigarettes, uncomplicated; Z79.4 Long term (current) use of insulin; J18.9 Pneumonia, unspecified organism
CPT/HCPCS: 36415; 71020-TC; 80053; 80307; 82550; 82553; 83735; 84484; 85025; 93005; 93010; 93306-TC; 94150; 94640; 99282-25; G0378

== ENCOUNTER 2016-07-09 01:40 | Emergency (ER) | payer OTHER ==
[2016-07-09 02:03] VITALS: BP 143/86; BMI 32.1
[2016-07-09] MEDS ORDERED: ALBUTEROL SO4 2.5/IPRATROPIUM 0.5 INH SOL 3 ML VIAL.NEB. NEB ONE ×2 (02:32→02:39)
--- NOTE | 2016-07-09 02:32 | PDOC ---
History of Present Illness - General Chief Complaint: Altered Mental Status Stated Complaint: ALTERED MENATL STATUS Time Seen by Provider: 07/09/16 01:53 History Source: Patient Exam Limitations: No Limitations - History of Present Illness Timing/Duration: reports: just prior to arrival Past History - Travel Traveled outside of the country in the last 30 days: No Close contact w/someone who was outside of country & ill: No - Past Medical History Allergies/Adverse Reactions: Allergies Allergy/AdvReac Type Severity Reaction Status Date / Time almond oil [[place] Oil] Allergy Unknown Allergy to Verified 07/09/16 01:59 Almonds No Known Drug Allergies Allergy Verified 07/09/16 01:59 ALMONDS Allergy Severe Rash Uncoded 07/09/16 01:59 Home Medications: Ambulatory Orders Azithromycin [Zithromax -] 250 mg PO UTDICT #6 tab 07/09/16 Anemia: No Asthma: Yes Cancer: No Cardiac Disorders: No CVA: No COPD: No CHF: No Dementia: No Diabetes: Yes GI Disorders: Yes (hernia) Disorders: No HTN: Yes Hypercholesterolemia: No Kidney Stones: No Liver Disease: No Suicide Attempt (Hx): No Seizures: No Thyroid Disease: No - Surgical History Abdominal Surgery: Yes (colostomy reversal 02/12/15, hernia) Appendectomy: No Cardiac Surgery: No Cholecystectomy: No Lung Surgery: No Neurologic Surgery: No Orthopedic Surgery: Yes (left rotator cuff surgery 2 years ago) - Reproductive History Testicular Surgery: No - Psycho/Social/Smoking Cessation Hx Anxiety: No Suicidal Ideation: No Smoking History: Unknown if ever smoked Have you smoked in the past 12 months: Yes Number of Cigarettes Smoked Daily: 2 Cigars Per Day: 0 Information on smoking cessation initiated: No 'Breaking Loose' booklet given: 09/15/15 Hx Alcohol Use: Yes Drug/Substance Use Hx: Yes Substance Use Type: Opiates Hx Substance Use Treatment: Yes Respiratory Specific PMHX - Complaint Specific PMHX TB (Tuberculosis): No Review of Systems - Review of Systems Able to Perform ROS?: Yes Comments:: 07/09/16 04:26 CONSTITUTIONAL: Absent: fever, chills, diaphoresis, generalized weakness, malaise, loss of appetite HEENT: Absent: rhinorrhea, nasal congestion, throat pain, throat swelling, difficulty swallowing, mouth swelling, ear pain, eye pain, visual Changes CARDIOVASCULAR: Absent: chest pain, loss of consciousness, palpitations, irregular heart rate, peripheral edema RESPIRATORY: +cough Absent: shortness of breath, dyspnea with exertion, orthopnea, wheezing, stridor , hemoptysis GASTROINTESTINAL: Absent: abdominal pain, abdominal distension, nausea, vomiting, diarrhea, constipation, melena, hematochezia GENITOURINARY: Absent: dysuria, frequency, urgency, hesitancy, hematuria, flank pain, genital pain MUSCULOSKELETAL: Absent: myalgia, arthralgia, joint swelling SKIN: Absent: rash, itching, pallor HEMATOLOGIC/IMMUNOLOGIC: Absent: easy bleeding, easy bruising, lymphadenopathy, frequent infections ENDOCRINE: Absent: unexplained weight gain, unexplained weight loss, heat intolerance, cold intolerance NEUROLOGIC: Absent: headache, focal weakness or paresthesias, dizziness, unsteady gait, seizure, mental status changes, bladder or bowel incontinence PSYCHIATRIC: Absent: anxiety, depression, suicidal or homicidal ideation, hallucinations. Is the patient limited Latvian proficient: No *Physical Exam - Vital Signs Last Vital Signs Temp Pulse Resp BP Pulse Ox 94 F L 110 H 18 143/86 96 07/09/16 01:56 07/09/16 01:56 07/09/16 01:56 07/09/16 01:56 07/09/16 01:56 - Physical Exam Comments: 07/09/16 04:26 GENERAL: Well developed, well nourished. Awake and alert. No acute distress. HEENT: Normocephalic, atraumatic. PERRLA, EOMI. No conjunctival pallor. Sclera are non- icteric. Moist mucous membranes. Oropharynx is clear. NECK: Supple. Full ROM. No JVD. Carotid pulses 2+ and symmetric, without bruits. No thyromegaly. No lymphadenopathy. CARDIOVASCULAR: Regular rate and rhythm. No murmurs, rubs, or gallops. Distal pulses are 2+ and symmetric. PULMONARY: right and left lower exp wheezes No evidence of respiratory distress. No wheezing, rales or rhonchi. ABDOMINAL: Soft. Non-tender. Non-distended. No rebound or guarding. No organomegaly. Normoactive bowel sounds. MUSCULOSKELETAL Normal range of motion at all joints. No bony deformities or tenderness. No CVA tenderness. EXTREMITIES: No cyanosis. No clubbing. No edema. No calf tenderness. SKIN: Warm and dry. Normal capillary refill. No rashes. No jaundice. NEUROLOGICAL: Alert, awake, appropriate. Cranial nerves 2-12 intact. No deficits to light touch and temperature in face, upper extremities and lower extremities. No motor deficits in the in face, upper extremities and lower extremities. Normoreflexic in the upper and lower extremities. Normal speech. Toes are down- going bilaterally. Gait is normal without ataxia. PSYCHIATRIC: Cooperative. Good eye contact. Appropriate mood and affect. ED Treatment Course - RADIOLOGY Radiograph Interpretation: 07/09/16 05:24 RLL infiltrate Progress Note - Progress Note Progress Note: 51 yo M Pmhx with a history of asthma, hypertension, insulin-dependent diabetes mellitus, alcohol and polysubstance abuse presents to the emergency department complaining of shortness of breath 6 hours. Patient states he was not able to give himself a treatment because he was out with some friends. He reports that he's been not feeling well recently with an upper respiratory infection, rhinorrhea, chest pains, abdominal pains, urinary symptoms: Frequency/urgency/ hesitancy or hematuria. He states he's been coughing for the past 2 days and describes it as a yellowish productive cough. *DC/Admit/Observation/Transfer Diagnosis at time of Disposition: RLL pneumonia Qualifiers: Pneumonia type: due to unspecified organism Qualified Code(s): J18.9 - Pneumonia, unspecified organism - Discharge Dispostion Disposition: HOME Condition at time of disposition: Stable Admit: No - Prescriptions Prescriptions: Azithromycin [Zithromax -] 250 mg PO UTDICT #6 tab - Referrals Referrals: STAFF,NOT ON [Primary Care Provider] - Basil Alvarez MD [Staff Physician] - - Patient Instructions Printed Discharge Instructions: Pneumonia-Adult Additional Instructions: Take your zpak Take tylenol/motrin as needed Return to the ER for severe/persistent/worsening symptoms
[2016-07-09] MEDS ORDERED: predniSONE 20 MG TABLET (UD) PO ONE (03:38)
[2016-07-09] MEDS ORDERED: predniSONE 20 MG TABLET (UD) ONE (03:39)
[2016-07-09 04:26] VITALS: PULSE 106; TEMP 98.2
[2016-07-09] MEDS ORDERED: AZITHROMYCIN 250 MG TABLET (FP) PO ONE (04:39)
[2016-07-09] MEDS ORDERED: AZITHROMYCIN 250 MG TABLET (FP) ONE (04:40)
== END 2016-07-09 05:04 | disposition home or self-care (01) ==
LOC: JER 01:40
DX: J18.9 Pneumonia, unspecified organism (principal); I10 Essential (primary) hypertension; J45.909 Unspecified asthma, uncomplicated; E11.9 Type 2 diabetes mellitus without complications; F10.10 Alcohol abuse, uncomplicated; F19.10 Other psychoactive substance abuse, uncomplicated
CPT/HCPCS: 70450-TC; 71010-TC; 99282-25

== ENCOUNTER 2016-07-12 21:22 | Inpatient (IN) | payer OTHER ==
--- NOTE | 2016-07-12 21:47 | PDOC ---
[id number] 4d No Limitations - History of Present Illness Initial Comments: 07/12/16 21:54 The patient is a 51 year old male with significant past medical history of drug abuse (heroin), hypertension, diabetes, and asthma who presents to the ED BIBA for SOB. Patient admits to doing heroin today and shortly after he started to develope SOB with wheezing and dry cough. The patient denies fever, chills, diaphoresis, lightheadedness, chest pain, and palpitations. The patient denies abdominal pain, nausea, vomiting, and diarrhea. Allergies: NKDA Social History: current smoker (half pack per day), drug use (heroin) Past Surgical History: colostomy reversal 02/12/15, hernia repair, left rotator cuff surgery PCP: None reported <Rafaela Albarran - Last Filed: 07/13/16 00:14> - General History Source: Patient <Kieran Avila - Last Filed: 07/13/16 19:42> - General Chief Complaint: Asthma Stated Complaint: ASTHMA Time Seen by Provider: 07/12/16 21:47 Past History <Rafaela Albarran - Last Filed: 07/13/16 00:14> - Past Medical History Anemia: No Asthma: Yes Cancer: No Cardiac Disorders: No CVA: No COPD: No CHF: No Dementia: No Diabetes: Yes GI Disorders: Yes (hernia) Disorders: No HTN: Yes Hypercholesterolemia: No Kidney Stones: No Liver Disease: No Suicide Attempt (Hx): No Seizures: No Thyroid Disease: No - Surgical History Abdominal Surgery: Yes (colostomy reversal 02/12/15, hernia) Appendectomy: No Cardiac Surgery: No Cholecystectomy: No Lung Surgery: No Neurologic Surgery: No Orthopedic Surgery: Yes (left rotator cuff surgery 2 years ago) - Reproductive History Testicular Surgery: No - Psycho/Social/Smoking Cessation Hx Anxiety: No Suicidal Ideation: No Smoking History: Unknown if ever smoked Have you smoked in the past 12 months: Yes Number of Cigarettes Smoked Daily: 2 Cigars Per Day: 0 'Breaking Loose' booklet given: 09/15/15 Hx Alcohol Use: Yes Drug/Substance Use Hx: Yes Substance Use Type: Opiates Hx Substance Use Treatment: Yes <Kieran Avila - Last Filed: 07/13/16 19:42> - Past Medical History Allergies/Adverse Reactions: Allergies Allergy/AdvReac Type Severity Reaction Status Date / Time almond oil [[place] Oil] Allergy Unknown Allergy to Verified 07/12/16 21:31 Almonds No Known Drug Allergies Allergy Verified 07/12/16 21:31 ALMONDS Allergy Severe Rash Uncoded 07/12/16 21:31 Home Medications: Ambulatory Orders Insulin (Novolog) [Novolog Flexpen] 0 units SQ AC 07/12/16 Insulin Glargine,Hum.rec.anlog [Lantus (nf)] 10 units SQ HS 07/12/16 Amlodipine Besylate [Amlodipine Besylate] 10 mg PO DAILY 07/13/16 Lisinopril [Lisinopril] 07/13/16 Review of Systems - Review of Systems Able to Perform ROS?: Yes Comments:: 07/12/16 21:54 CONSTITUTIONAL: Absent: fever, no chills, no fatigue EYES: Absent: visual changes ENT: Absent: ear pain, no sore throat CARDIOVASCULAR: Absent: chest pain, no palpitations RESPIRATORY: +SOB, wheezing, cough GI: Absent: abdominal pain, no nausea, no vomiting, no constipation, no diarrhea GENITOURINARY: Absent: dysuria, no frequency, no hematuria MUSKULOSKELETAL: Absent: back pain, no arthralgia, no myalgia SKIN: Absent: rash NEURO: Absent: headache <Rafaela Albarran - Last Filed: 07/13/16 00:14> *Physical Exam - Vital Signs Last Vital Signs Temp Pulse Resp BP Pulse Ox 98.4 F 100 H 20 165/94 100 07/12/16 21:31 07/12/16 21:31 07/12/16 21:31 07/12/16 21:31 07/12/16 21:31 - Physical Exam Comments: 07/12/16 21:54 GENERAL: Well-appearing, well-nourished. No apparent distress. HEENT: Normocephalic, atraumatic. PERRL, EOM intact. CARDIOVASCULAR: Normal S1, S2. Regular rate and rhythm. PULMONARY: No evidence of respiratory distress. Diffuse wheezing bilaterally. No conversational dyspnea. ABDOMEN: Soft, non-distended, non-tender. EXTREMITIES: Normal ROM in all four extremities. No gross deformities. SKIN: Warm, dry. No rash NEUROLOGICAL: No focal neurological deficits. <Rafaela Albarran - Last Filed: 07/13/16 00:14> - Vital Signs Last Vital Signs Temp Pulse Resp BP Pulse Ox 98.4 F 100 H 20 165/94 100 07/12/16 21:31 07/12/16 21:31 07/12/16 21:31 07/12/16 21:31 07/12/16 21:31 <Kieran Avila - Last Filed: 07/13/16 19:42> Heart Score/ECG Review - ECG Impressions Comment:: 07/13/16 00:14 NSR @98bpm Nonspecific T wave abnormality Prolonged QT Abnormal ECG <Rafaela Albarran - Last Filed: 07/13/16 00:14> ED Treatment Course - LABORATORY CBC & Chemistry Diagram: 07/12/16 22:40 07/12/16 22:40 <Rafaela Albarran - Last Filed: 07/13/16 00:14> - LABORATORY CBC & Chemistry Diagram: 07/13/16 06:00 07/13/16 06:00 <Kieran Avila - Last Filed: 07/13/16 19:42> Medical Decision Making - Medical Decision Making 07/13/16 19:41 Dr. Avila: The scribe's documentation has been prepared under my direction and personally reviewed by me in its entirery. I confirm that the note above accurately reflects all work, treatment, procedures, and medical decision making performed by me. pt required admission due continuing wheezing and SOB. Admitted to [facility] <Kieran Avila - Last Filed: 07/13/16 19:42> *DC/Admit/Observation/Transfer - Attestations Scribe Attestion: 07/12/16 21:55 Documentation prepared by Rafaela Albarran, acting as medical device sales for Kieran Avila MD <Rafaela Albarran - Last Filed: 07/13/16 00:14> - Discharge Dispostion Admit: Yes <Kieran Avila - Last Filed: 07/13/16 19:42> Diagnosis at time of Disposition: Asthma exacerbation
[2016-07-12] MEDS ORDERED: ALBUTEROL SO4 2.5/IPRATROPIUM 0.5 INH SOL 3 ML VIAL.NEB. NEB STA ×2 (21:49→23:22)
[2016-07-12] MEDS ORDERED: methylPREDNISolone NA SUCC 125 MG/2 ML VIAL IVPB ONE (21:49)
[2016-07-12] MEDS ORDERED: MAGNESIUM SULF 50% (8.12 MEQ/2 ML-1 GM VIAL) IVPB ONE (21:49)
[2016-07-12] MEDS ORDERED: MAGNESIUM SULF 50% (8.12 MEQ/2 ML-1 GM VIAL) ONE (22:49)
[2016-07-12] MEDS ORDERED: methylPREDNISolone NA SUCC 125 MG/2 ML VIAL ONE (22:49)
[2016-07-12] MEDS ORDERED: ALBUTEROL SO4 2.5/IPRATROPIUM 0.5 INH SOL 3 ML VIAL.NEB. NEB ONE (22:49)
[2016-07-12 22:56] LABS: BASOPHIL 1.2 % (0-2.0); EOSINOPHIL 2.5 % (0-4.5); MCH 27.7 pg (25.7-33.7); MCHC 31.8 g/dl (32.0-35.9); MEAN CELL VOLUME 87.1 fl (80-96); MEAN PLT VOLUME 7.5 fl (7.5-11.1); NEUTROPHILS 55.5 % (42.8-82.8); PLATELET COUNT 234 K/MM3 (134-434); WHITE BLOOD COUNT 10.6 K/mm3 (4.0-10.0)
[2016-07-12 23:20] LABS: URINE APPEARANCE CLEAR; URINE BILIRUBIN NEGATIVE (NEGATIVE); URINE BLOOD NEGATIVE (NEGATIVE); URINE COLOR LTYELLOW; URINE GLUCOSE (UA) 2+ (NEGATIVE); URINE KETONE NEGATIVE (NEGATIVE); URINE LEUK ESTERASE NEGATIVE (NEGATIVE); URINE NITRITE NEGATIVE (NEGATIVE); URINE PROTEIN NEGATIVE (NEGATIVE); URINE UROBILINOGEN 2.0 E.U/dl E.U./dl (0.2-1.0)
[2016-07-12 23:28] LABS: ALBUMIN 3.1 g/dl (3.4-5.0); ANION GAP 6 (8-16); BILIRUBIN,TOTAL 0.2 mg/dL (0.2-1.0); CALCIUM 8.5 mg/dL (8.5-10.1); CO2 32 mmol/L (21-32); CREATININE 0.9 mg/dL (0.7-1.3); GLUCOSE,RANDOM 140 mg/dL (74-106); MAGNESIUM 1.8 mg/dL (1.8-2.4); SGOT/AST 45 U/L (15-37); SGPT/ALT 96 U/L (12-78); TOT PROT 6.6 g/dl (6.4-8.2)
[2016-07-12 23:30] LABS: ALK PHOS 102 U/L (45-117)
[2016-07-12 23:33] LABS: INR 1.1 (0.82-1.09); PROTHROMBIN TIME (PATIENT) 12.1 SEC (9.98-11.88)
[2016-07-13] MEDS ORDERED: ACETAMINOPHEN 325 MG TABLET (FP) PO PRN (00:13)
--- NOTE | 2016-07-13 00:21 | HP ---
CHIEF COMPLAINT:SOB PCP: HISTORY OF PRESENT ILLNESS: 51 yo M with a PMHx of drug abuse (heroin), hypertension, diabetes, HLD and asthma who presents with SOB for 1 day. Patient reports he was sniffing heroin earlier today and subsequently developing SOB, wheezing and a coarse dry cough. Denies sick contacts. Patient has a history of intubation in his childhood. Patient has been hospitalized for asthma exacerbation twice in 2017. Peak flow of 200. Patient doesnt know max. Patient is noncompliant with home medications. Denies CP, BAJWA , abd. pain, palpitations, n/v. ER course was notable for: (1)CXR- no acute pathology (2)Peak flow of 200 (3)Given 3 round duonebs and 125 solumedrol IV- SpO2 s/p treatment- 97% 2L NC Recent Travel: PAST MEDICAL HISTORY: drug abuse (heroin), hypertension, diabetes, HLD and asthma PAST SURGICAL HISTORY:Hernia repair 2006, Colostomy reversal 02/2015 Social History: Smoking:current 0.5ppd use Alcohol:social Drugs: heroin(snorted) Family History: Allergies almond oil [[place] Oil] Allergy (Unknown, Verified 07/12/16 21:31) Allergy to Almonds No Known Drug Allergies Allergy (Verified 07/12/16 21:31) ALMONDS Allergy (Severe, Uncoded 07/12/16 21:31) Rash HOME MEDICATIONS: Home Medications Medication Instructions Recorded Insulin (Novolog) [Novolog Flexpen] 0 units SQ AC 07/12/16 Insulin Glargine,Hum.rec.anlog 10 units SQ HS 07/12/16 [Lantus (nf)] REVIEW OF SYSTEMS CONSTITUTIONAL: Absent: fever, chills, diaphoresis, generalized weakness, malaise, loss of appetite, weight change HEENT: Absent: rhinorrhea, nasal congestion, throat pain, throat swelling, difficulty swallowing, mouth swelling, ear pain, eye pain, visual changes CARDIOVASCULAR: Absent: chest pain, syncope, palpitations, irregular heart rate, lightheadedness , peripheral edema RESPIRATORY: (+)shortness of breath, dyspnea with exertion Absent: cough, , orthopnea, wheezing, stridor, hemoptysis GASTROINTESTINAL: Absent: abdominal pain, abdominal distension, nausea, vomiting, diarrhea, constipation, melena, hematochezia GENITOURINARY: Absent: dysuria, frequency, urgency, hesitancy, hematuria, flank pain, genital pain MUSCULOSKELETAL: Absent: myalgia, arthralgia, joint swelling, back pain, neck pain SKIN: Absent: rash, itching, pallor HEMATOLOGIC/IMMUNOLOGIC: Absent: easy bleeding, easy bruising, lymphadenopathy, frequent infections ENDOCRINE: Absent: unexplained weight gain, unexplained weight loss, heat intolerance, cold intolerance NEUROLOGIC: Absent: headache, focal weakness or paresthesias, dizziness, unsteady gait, seizure, mental status changes, bladder or bowel incontinence PSYCHIATRIC: Absent: anxiety, depression, suicidal or homicidal ideation, hallucinations. PHYSICAL EXAMINATION Vital Signs - 24 hr 07/12/16 07/13/16 07/13/16 21:31 00:40 01:10 Temperature 98.4 F 97.9 F Pulse Rate 100 H 96 H Pulse Rate [ 92 H Left] Respiratory 20 22 20 Rate Blood Pressure 165/94 150/82 Blood Pressure 170/90 [Right Arm] O2 Sat by Pulse 100 96 Oximetry (%) 07/13/16 02:06 Temperature Pulse Rate Pulse Rate [ Left] Respiratory 20 Rate Blood Pressure Blood Pressure [Right Arm] O2 Sat by Pulse 97 Oximetry (%) GENERAL: AAOx3 NAD HEAD: MC/AT EYES: PERRLA, EOMI, sclera anicteric, conjunctiva clear. No lid lag. EARS, NOSE, THROAT: Ears normal, nares patent, oropharynx clear without exudates. Dry mucous membranes. NECK: Normal range of motion, supple without lymphadenopathy, JVD, or masses. LUNGS:Bilateral scattered wheezing and coarse rhonchi. no crackles. No accessory muscle use. HEART:Tachycardic, normal S1 and S2 without murmur, rub or gallop. ABDOMEN: Soft, Obese , NT/ND,large ventral hernia, normoactive bowel sounds, no guarding, no rebound, no masses. No hepatomegaly or splenomegaly. MUSCULOSKELETAL: Normal range of motion at all joints. No bony deformities or tenderness. No CVA tenderness. UPPER EXTREMITIES: 2+ pulses, warm, well-perfused. No cyanosis. No clubbing. No peripheral edema. LOWER EXTREMITIES: 2+ pulses, warm, well-perfused. No calf tenderness. No peripheral edema. NEUROLOGICAL: Cranial nerves II-XII intact. Normal speech. Gait not observed. PSYCHIATRIC: Cooperative. Good eye contact. Appropriate mood and affect. SKIN: Warm, dry, normal turgor, no rashes or lesions noted. 07/12/16 07/12/16 07/12/16 22:40 22:40 22:40 WBC 10.6 H D RBC 4.74 Hgb 13.1 Hct 41.3 MCV 87.1 MCHC 31.8 L RDW 17.0 H Plt Count 234 D Neutrophils % 55.5 D Lymphocytes % 31.9 D Monocytes % 8.9 D Eosinophils % 2.5 Basophils % 1.2 INR 1.10 Sodium 139 Potassium 4.0 Chloride 101 Carbon Dioxide 32 Anion Gap 6 L BUN 9 D Creatinine 0.9 07/12/16 22:40 Blood Culture - Pending Blood - Peripheral Venous 07/12/16 22:40 Blood Culture - Pending Blood - Peripheral Venous ASSESSMENT/PLAN: 51 yo M with a PMHx of drug abuse (heroin), hypertension, diabetes, HLD and asthma Problem List - Problem (1) Asthma exacerbation Assessment/Plan: * Peak flow 200 * Duonebs QID * Albuterol PRN * supplemental O2 via NC * maintain SpO2 >90% * Incentive spirometry Q1H (2) Opioid dependence with withdrawal Assessment/Plan: * Consult Dangelo Turner * Neuro checks for withdrawl. * given nalaxone in field. (3) Hyperlipidemia Assessment/Plan: * Continue Lipitor 40mg HS (4) HTN (hypertension) Assessment/Plan: * Continue Amlodipine 10mg daily and lisinopril 40mg PO daily (5) IDDM (insulin dependent diabetes mellitus) Assessment/Plan: * ADA diet * BGM ACHS * RISS ACHS (6) DVT prophylaxis Assessment/Plan: * Heparin 5000 Units SQ BID. Code(s): QCC9821 - Visit type - Emergency Visit Emergency Visit: Yes ED Registration Date: 07/12/16 Care time: The patient presented to the Emergency Department on the above date and was hospitalized for further evaluation of their emergent condition. - New Patient This patient is new to me today: Yes Date on this admission: 07/13/16 - Critical Care Critical Care patient: No
--- NOTE | 2016-07-13 01:03 | PN ---
<Timothy Augustine - Last Filed: 07/13/16 01:03> Teaching Attending Note Name of Resident: Lester Cardona ATTENDING PHYSICIAN STATEMENT I saw and evaluated the patient. I reviewed the resident's note and discussed the case with the resident. I agree with the resident's findings and plan as documented. SUBJECTIVE: OBJECTIVE: ASSESSMENT AND PLAN: <Gisel Reyes - Last Filed: 07/13/16 01:05> Teaching Attending Note ATTENDING PHYSICIAN STATEMENT I saw and evaluated the patient. I reviewed the resident's note and discussed the case with the resident. I agree with the resident's findings and plan as documented. SUBJECTIVE: Patient is a 51 yo M with a PMHx of drug abuse (heroin), hypertension, diabetes , HLD and asthma who presents with SOB for 1 day. Patient reports he was sniffing heroin earlier today and subsequently developing SOB, wheezing and a coarse dry cough. Denies sick contacts. Patient has a history of intubation in his childhood. Patient has been hospitalized for asthma exacerbation twice in 2017. Peak flow of 200. Patient doesnt know max. Patient is noncompliant with home medications. OBJECTIVE: Last Vital Signs Temp Pulse Resp BP Pulse Ox 98.4 F 100 H 20 165/94 100 07/12/16 21:31 07/12/16 21:31 07/12/16 21:31 07/12/16 21:31 07/12/16 21:31 GENERAL: Awake, alert, and fully oriented, in no acute distress. Obese. HEENT: Atraumatic. Moist mucosa. Normocephalic. No sinus tenderness. No LAD. NECK: No JVD. No thyroid masses. Supple. LUNGS: Bilateral wheezing. HEART: Regular rate and rhythm, normal S1 and S2, no murmurs, rubs or gallops, peripheral pulses normal and equal bilaterally. ABDOMEN: Large abdominal hernia reducible, nontender, normoactive bowel sounds. No guarding, no rebound. MUSCULOSKELETAL: No joint tenderness or erythema. No muscle tenderness. Normal muscle bulk and tone. EXTREMITIES: Normal inspection, No edema. No clubbing or cyanosis. Moves all extremities. NEUROLOGICAL: Normal speech, normal gait, no focal sensorimotor deficits. SKIN: Warm, dry, normal turgor, no rashes or lesions noted. CBCD WBC 10.6 K/mm3 (4.0-10.0) H D 07/12/16 22:40 RBC 4.74 M/mm3 (4.00-5.60) 07/12/16 22:40 Hgb 13.1 GM/dL (11.7-16.9) 07/12/16 22:40 Hct 41.3 % (35.4-49) 07/12/16 22:40 MCV 87.1 fl (80-96) 07/12/16 22:40 MCHC 31.8 g/dl (32.0-35.9) L 07/12/16 22:40 RDW 17.0 % (11.9-15.9) H 07/12/16 22:40 Plt Count 234 K/MM3 (134-434) D 07/12/16 22:40 MPV 7.5 fl (7.5-11.1) 07/12/16 22:40 CMP Sodium 139 mmol/L (136-145) 07/12/16 22:40 Potassium 4.0 mmol/L (3.5-5.1) 07/12/16 22:40 Chloride 101 mmol/L (98-107) 07/12/16 22:40 Carbon Dioxide 32 mmol/L (21-32) 07/12/16 22:40 Anion Gap 6 (8-16) L 07/12/16 22:40 BUN 9 mg/dL (7-18) D 07/12/16 22:40 Creatinine 0.9 mg/dL (0.7-1.3) 07/12/16 22:40 Creat Clearance w eGFR > 60 (>60) 07/12/16 22:40 Calcium 8.5 mg/dL (8.5-10.1) 07/12/16 22:40 Total Bilirubin 0.2 mg/dL (0.2-1.0) 07/12/16 22:40 AST 45 U/L (15-37) H D 07/12/16 22:40 ALT 96 U/L (12-78) H D 07/12/16 22:40 Alkaline Phosphatase 102 U/L (45-117) D 07/12/16 22:40 Total Protein 6.6 g/dl (6.4-8.2) 07/12/16 22:40 Albumin 3.1 g/dl (3.4-5.0) L 07/12/16 22:40 ASSESSMENT AND PLAN: Patient is a 51 yo M with a PMHx of drug abuse (heroin), HTN, diabetes, and asthma who presents with asthma exacerbation. 1.) Asthma exacerbation likely secondary to medication noncompliance and heroin abuse -Duonebs Q 4 hours -Prednisone 40 mg daily -Monitor peak flow 2.) HTN -Continue home meds 3.) Diabetes -Lantis 10 units QHS -INsulin sliding scale 4.) Heroin abuse -Outpatient detox DVT ppx -SCDs Diet -Low salt diabetic diet Documentation prepared by Gisel Reyes, acting as certified medical coder for Timothy Augustine M.D.
--- NOTE | 2016-07-13 01:08 | MSN ---
Admitting History and Physical - Admission Chief Complaint: SOB History of Present Illness: 51 yo male with pmhx of heroin abuse, asthma, HTN, HLD, diabetes presents with SOB for one day. Patient was sniffing heroin when he noticed the SOB. He has a dry cough. He has had this happen before earlier this year and reports no ER visits last year. He has a peak flow of 200 and was intubated once as a child for asthma exacerbation. Patient expressed interest in getting help to get over his heroin addiction. He denies chest pain, headache, sick contacts, previous illness History Source: Patient Limitations to Obtaining History: No Limitations - Past Medical History Cardiovascular: Yes: HTN, Hyperlipdemia Pulmonary: Yes: Asthma Psych: Yes: Addictions Endocrine: Yes: Diabetes Mellitus - Past Surgical History Past Surgical History: Yes: Hernia Repair (ventral . scheduled for another repair of same hernia later this month) - Smoking History Smoking history: Unknown if ever smoked - Social History Usual Living Arrangement: Yes: Alone History of Recent Travel: No Home Medications - Allergies Allergies/Adverse Reactions: Allergies Allergy/AdvReac Type Severity Reaction Status Date / Time almond oil [[place] Oil] Allergy Unknown Allergy to Verified 07/12/16 21:31 Almonds No Known Drug Allergies Allergy Verified 07/12/16 21:31 ALMONDS Allergy Severe Rash Uncoded 07/12/16 21:31 - Home Medications Home Medications: Ambulatory Orders Insulin (Novolog) [Novolog Flexpen] 0 units SQ AC 07/12/16 Insulin Glargine,Hum.rec.anlog [Lantus (nf)] 10 units SQ HS 07/12/16 Amlodipine Besylate [Amlodipine Besylate] 10 mg PO DAILY 07/13/16 Lisinopril [Lisinopril] 07/13/16 Family Disease History - Family Disease History Family Disease History: CA: Father () Review of Systems - Review of Systems Constitutional: reports: No Symptoms Eyes: reports: No Symptoms Neck: reports: No Symptoms Cardiovascular: reports: No Symptoms Respiratory: reports: Cough, SOB Gastrointestinal: reports: No Symptoms Genitourinary: reports: No Symptoms Psychiatric: reports: No Symptoms Physical Examination Vital Signs: Vital Signs Temperature 98.4 F 07/12/16 21:31 Pulse Rate 100 H 07/12/16 21:31 Respiratory Rate 20 07/12/16 21:31 Blood Pressure 165/94 07/12/16 21:31 O2 Sat by Pulse Oximetry (%) 100 07/12/16 21:31 Constitutional: Yes: Well Nourished, No Distress, Calm Eyes: Yes: WNL, Conjunctiva Clear, EOM Intact Cardiovascular: Yes: WNL, Regular Rate and Rhythm, S1, S2 Respiratory: Yes: WNL, Regular, Wheezes (b/l) Gastrointestinal: Yes: Normal Bowel Sounds, Soft, Hernia (ventral) Extremities: Yes: WNL Edema: No Neurological: Yes: WNL, Alert, Oriented, Cran Nerves II-XII Intact ...Motor Strength: LLE, RLE Psychiatric: Yes: WNL, Alert, Oriented Imaging - Results Chest X-ray: Report Reviewed (no acute pathology), Image Reviewed Assessment/Plan 51 yo male with pmhx of heroin abuse, asthma, HTN, HLD, diabetes presents with SOB for one day. Patient was sniffing heroin when he noticed the SOB. Asthma exacerbation -duoneb q4h -solumedrol -monitor peak flow HTN -continue home meds DM -lantis -sliding scale Heroin abuse -follow outpatient DVT -scd Diet -low salt admit for obs
[2016-07-13 01:33] VITALS: BMI 38.6
[2016-07-13] MEDS ORDERED: methylPREDNISolone NA SUCC 40 MG/1 ML VIAL IVPB SCH (02:00)
[2016-07-13] MEDS: ALBUTEROL SO4 0.083% IH SOL 2.5 MG/3 ML VIAL.NEB. NEB PRN ×2 (06:17→14:55)
[2016-07-13] MEDS: INSULIN SLIDING SCALE (NOVOLOG) 1 VIAL SQ SCH ×4 (06:32→22:17)
[2016-07-13 07:31] LABS: BASOPHIL 0.2 % (0-2.0); EOSINOPHIL 0.1 % (0-4.5); MCH 27.1 pg (25.7-33.7); MCHC 31.2 g/dl (32.0-35.9); MEAN PLT VOLUME 8.2 fl (7.5-11.1); NEUTROPHILS 87.1 % (42.8-82.8); PLATELET COUNT 251 K/MM3 (134-434); RDW 16.8 % (11.9-15.9); WHITE BLOOD COUNT 8.5 K/mm3 (4.0-10.0)
[2016-07-13 07:34] LABS: ARTERIAL BLD GAS O2 SATURATION 94.7 % (90-98.9); ARTERIAL BLOOD GAS BASE EXCESS 2.4 meq/l (-2-2); ARTERIAL BLOOD GAS HCO3 26.1 meq/L (22-26); ARTERIAL BLOOD GAS pH 7.44 (7.35-7.45)
[2016-07-13 07:37] LABS: ALLENS TEST POSITIVE; ART PUNCT SITE RIGHT RADIAL; LPM/O2% 21%; PT. ON O2? no; TYPE OF O2 ROOM AIR
[2016-07-13 08:05] LABS: ALBUMIN 3.1 g/dl (3.4-5.0); ANION GAP 11 (8-16); CALCIUM 9.2 mg/dL (8.5-10.1); CO2 26 mmol/L (21-32); CREATININE 1.1 mg/dL (0.7-1.3); MAGNESIUM 2.1 mg/dL (1.8-2.4); PHOSPHOROUS 2.5 mg/dL (2.5-4.9); SGOT/AST 34 U/L (15-37); SGPT/ALT 95 U/L (12-78)
[2016-07-13 08:06] LABS: ALK PHOS 121 U/L (45-117); BILIRUBIN,TOTAL 0.3 mg/dL (0.2-1.0)
[2016-07-13 08:53] LABS: GLUCOSE,RANDOM 398 mg/dL (74-106)
--- NOTE | 2016-07-13 10:44 | EKG ---
Test Reason : Blood Pressure : / mmHG Vent. Rate : 098 BPM Atrial Rate : 098 BPM P-R Int : 124 ms QRS Dur : 100 ms QT Int : 430 ms P-R-T Axes : 068 059 100 degrees QTc Int : 548 ms NORMAL SINUS RHYTHM NONSPECIFIC T WAVE ABNORMALITY PROLONGED QT ABNORMAL ECG WHEN COMPARED WITH ECG OF 03-JUL-2016 11:21, T WAVE INVERSION NOW EVIDENT IN LATERAL LEADS QT HAS LENGTHENED Confirmed by KATHRINE PRICE, ADRIANNA ([id number]) on 07/13/2016 10:43:52 AM Referred By: Confirmed By:ADRIANNA CHISHOLM MD
[2016-07-13] MEDS ORDERED: INFLUENZA VACCINE 45 MCG/0.5 ML (MDV 16-17) IM ONE (11:00)
[2016-07-13] MEDS: predniSONE 20 MG TABLET (UD) PO SCH (11:20)
[2016-07-13] MEDS: HEPARIN NA (PORCINE) 5,000 UNITS/ML 1ML VIAL SQ SCH ×2 (11:20→22:12)
[2016-07-13] MEDS: amLODIPine BESYLATE 10 MG TABLET (FP) PO SCH (11:20)
[2016-07-13] MEDS: LABETALOL HCL 100 MG TABLET (FP) PO SCH ×2 (12:43→22:17)
[2016-07-13 13:26] LABS: URINE MARIJUANA THC NEGATIVE ng/ml (CUTOFF=50)
--- NOTE | 2016-07-13 13:44 | CONSULT ---
Consult Detox [facility] Reason for Current Admission/Consult: Heroin withdrawal sx. Referred by:: Lester farooq Res - History History of Present Illness: 51 y/o known to me from recent admission.Pt. had an acute asthma attack from snorting heroin. Pt. claims that he has not use alcohol since his last admission. - History Source History Provided By: Patient Limitations to Obtaining History: No Limitations - Alcohol/Substance Use Hx Alcohol Use: No (none since discharge) Hx Substance Use: Yes - Current Drug/Alcohol Use Heroin Route: Inhalation Frequency: Daily Amount used: 4 bags Age of first use: 50 Date of Last Use: 07/12/16 - Past Medical History Cardio/Vascular: Yes: HTN, Hyperlipdemia Pulmonary: Yes: Asthma Psych: Yes: Addictions Endocrine: Yes: Diabetes Mellitus - Past Surgical History Past Surgical History: Yes: Hernia Repair (ventral . scheduled for another repair of same hernia later this month) - Significant Medical Findings: Laboratory Last Values WBC 8.5 K/mm3 (4.0-10.0) 07/13/16 06:00 RBC 4.80 M/mm3 (4.00-5.60) 07/13/16 06:00 Hgb 13.0 GM/dL (11.7-16.9) 07/13/16 06:00 Hct 41.8 % (35.4-49) 07/13/16 06:00 MCV 87.0 fl (80-96) 07/13/16 06:00 MCHC 31.2 g/dl (32.0-35.9) L 07/13/16 06:00 RDW 16.8 % (11.9-15.9) H 07/13/16 06:00 Plt Count 251 K/MM3 (134-434) 07/13/16 06:00 MPV 8.2 fl (7.5-11.1) 07/13/16 06:00 Neutrophils % 87.1 % (42.8-82.8) H D 07/13/16 06:00 Lymphocytes % 11.5 % (8-40) D 07/13/16 06:00 Monocytes % 1.1 % (3.8-10.2) L D 07/13/16 06:00 Eosinophils % 0.1 % (0-4.5) D 07/13/16 06:00 Basophils % 0.2 % (0-2.0) 07/13/16 06:00 INR 1.10 (0.82-1.09) 07/12/16 22:40 Puncture Site Right radial 07/13/16 07:10 ABG pH 7.44 (7.35-7.45) 07/13/16 07:10 ABG pCO2 at Pt Temp 39.2 mmHg (35-45) 07/13/16 07:10 ABG pO2 at Pt Temp 74.0 mmHg (80-100) L 07/13/16 07:10 ABG HCO3 26.1 meq/L (22-26) H 07/13/16 07:10 ABG O2 Sat (Measured) 94.7 % (90-98.9) 07/13/16 07:10 ABG O2 Content 17.9 % vol (15-22) 07/13/16 07:10 ABG Base Excess 2.4 meq/l (-2-2) H 07/13/16 07:10 Marcial Test Positive 07/13/16 07:10 O2 Delivery Device Room air 07/13/16 07:10 Oxygen Flow Rate 21% 07/13/16 07:10 PEEP 0.0 cmH2O 07/13/16 07:10 Sodium 136 mmol/L (136-145) 07/13/16 06:00 Potassium 5.1 mmol/L (3.5-5.1) D 07/13/16 06:00 Chloride 99 mmol/L (98-107) 07/13/16 06:00 Carbon Dioxide 26 mmol/L (21-32) 07/13/16 06:00 Anion Gap 11 (8-16) 07/13/16 06:00 BUN 12 mg/dL (7-18) D 07/13/16 06:00 Creatinine 1.1 mg/dL (0.7-1.3) D 07/13/16 06:00 Creat Clearance w eGFR > 60 (>60) 07/13/16 06:00 POC Glucometer 187 UNITS (()) 07/13/16 11:18 Random Glucose 398 mg/dL (74-106) H* D 07/13/16 06:00 Calcium 9.2 mg/dL (8.5-10.1) 07/13/16 06:00 Phosphorus 2.5 mg/dL (2.5-4.9) 07/13/16 06:00 Magnesium 2.1 mg/dL (1.8-2.4) 07/13/16 06:00 Total Bilirubin 0.3 mg/dL (0.2-1.0) D 07/13/16 06:00 AST 34 U/L (15-37) D 07/13/16 06:00 ALT 95 U/L (12-78) H 07/13/16 06:00 Alkaline Phosphatase 121 U/L (45-117) H 07/13/16 06:00 B-Natriuretic Peptide 683.09 pg/ml (5-125) H 07/12/16 22:40 Total Protein 7.0 g/dl (6.4-8.2) 07/13/16 06:00 Albumin 3.1 g/dl (3.4-5.0) L 07/13/16 06:00 Urine Color Ltyellow 07/12/16 22:50 Urine Appearance Clear 07/12/16 22:50 Urine pH 6.0 (5.0-8.0) 07/12/16 22:50 Ur Specific [place] 1.018 (1.001-1.035) 07/12/16 22:50 Urine Protein Negative (NEGATIVE) 07/12/16 22:50 Urine Glucose (UA) 2+ (NEGATIVE) H 07/12/16 22:50 Urine Ketones Negative (NEGATIVE) 07/12/16 22:50 Urine Blood Negative (NEGATIVE) 07/12/16 22:50 Urine Nitrite Negative (NEGATIVE) 07/12/16 22:50 Urine Bilirubin Negative (NEGATIVE) 07/12/16 22:50 Urine Urobilinogen 2.0 e.u/dl E.U./dl (0.2-1.0) 07/12/16 22:50 Ur Leukocyte Esterase Negative (NEGATIVE) 07/12/16 22:50 Opiates Screen Positive ng/ml (RIGNJU=427) 07/13/16 11:15 Methadone Screen Negative ng/ml (IPQLWU=084) 07/13/16 11:15 Barbiturate Screen Negative ng/ml (JCGJMM=857) 07/13/16 11:15 Phencyclidine Screen Negative ng/ml (CUTOFF=25) 07/13/16 11:15 Ur Amphetamines Screen Negative ng/ml (ASOHNA=556) 07/13/16 11:15 MDMA (Ecstasy) Screen Negative ng/ml (KFAAVC=033) 07/13/16 11:15 Benzodiazepines Screen Positive ng/ml (EYAKPF=722) 07/13/16 11:15 Cocaine Screen Negative ng/ml (XRWXOK=180) 07/13/16 11:15 U Marijuana (THC) Screen Negative ng/ml (CUTOFF=50) 07/13/16 11:15 COWS - Scale Resting Pulse: 1= [place] 81-100 Sweatin=Flushed/Facial Moisture Restless Observation: 1= Difficult to Sit Still Pupil Size: 1= Pupils >than Normal Bone or Joint Aches: 2= Severe Diffuse Aches Runny Nose/ Eye Tearin= Runny Nose/Eyes GI Upset > 30mins: 2= Nausea/Diarrhea Tremor Observation: 2= Slight Tremor Visible Yawning Observation: 1= 1-2x During Session Anxiety or Irritability: 2=Irritable/Anxious Goose Flesh Skin: 0=Smooth Skin COWS Score: 16 Assessment Plan - Diagnosis (1) Opioid dependence with withdrawal Status: Acute (2) Asthma exacerbation Status: Acute - Plan Plan: Methadone detox, pt. will benefit from in-pt. rehab,however he does not want to go in-pt. - Medication Detox Regimen/Protocol: Methadone
[2016-07-13] MEDS ORDERED: METHADONE HCL 10 MG TABLET PO ONE (14:45)
[2016-07-13] MEDS ORDERED: METHADONE HCL 10 MG TABLET (FOR DETOX USE ONLY) PO ONE (14:45)
--- NOTE | 2016-07-13 18:39 | PN ---
Physical Exam: SUBJECTIVE: Patient seen and examined at bedside. OBJECTIVE: Vital Signs Period Temp Pulse Resp BP Sys/Jaime Pulse Ox Last 24 Hr 97.9 F-98.4 F 92-99 20-22 150-194/82-116 96-97 GENERAL: The patient is awake, alert, and fully oriented, in no acute distress. HEAD: Normal with no signs of trauma. EYES: PERRL, extraocular movements intact, sclera anicteric, conjunctiva clear. No ptosis. LUNGS: Diffuse expiratory wheezing HEART: Regular rate and rhythm, S1, S2 without murmur, rub or gallop. ABDOMEN: Soft, nontender, nondistended, normoactive bowel sounds, no guarding, no rebound EXTREMITIES: 2+ pulses, warm, well-perfused, no edema. NEUROLOGICAL: Cranial nerves II through XII grossly intact. Normal speech, moves all extremities freely Laboratory Results - last 24 hr 07/13/16 07/13/16 07/13/16 06:00 06:00 06:27 WBC 8.5 RBC 4.80 Hgb 13.0 Hct 41.8 MCV 87.0 MCHC 31.2 L RDW 16.8 H Plt Count 251 MPV 8.2 Neutrophils % 87.1 H D Lymphocytes % 11.5 D Monocytes % 1.1 L D Eosinophils % 0.1 D Basophils % 0.2 Puncture Site ABG pH ABG pCO2 at Pt Temp ABG pO2 at Pt Temp ABG HCO3 ABG O2 Sat (Measured) ABG O2 Content ABG Base Excess Marcial Test O2 Delivery Device Oxygen Flow Rate PEEP Sodium 136 Potassium 5.1 D Chloride 99 Carbon Dioxide 26 Anion Gap 11 BUN 12 D Creatinine 1.1 D Creat Clearance w eGFR > 60 POC Glucometer 390 Random Glucose 398 H* D Calcium 9.2 Phosphorus 2.5 Magnesium 2.1 Total Bilirubin 0.3 D AST 34 D ALT 95 H Alkaline Phosphatase 121 H Total Protein 7.0 Albumin 3.1 L Opiates Screen Methadone Screen Barbiturate Screen Phencyclidine Screen Ur Amphetamines Screen MDMA (Ecstasy) Screen Benzodiazepines Screen Cocaine Screen U Marijuana (THC) Screen 07/13/16 07/13/16 07/13/16 07:10 11:15 11:18 WBC RBC Hgb Hct MCV MCHC RDW Plt Count MPV Neutrophils % Lymphocytes % Monocytes % Eosinophils % Basophils % Puncture Site Right radial ABG pH 7.44 ABG pCO2 at Pt Temp 39.2 ABG pO2 at Pt Temp 74.0 L ABG HCO3 26.1 H ABG O2 Sat (Measured) 94.7 ABG O2 Content 17.9 ABG Base Excess 2.4 H Marcial Test Positive O2 Delivery Device Room air Oxygen Flow Rate 21% PEEP 0.0 Sodium Potassium Chloride Carbon Dioxide Anion Gap BUN Creatinine Creat Clearance w eGFR POC Glucometer 187 Random Glucose Calcium Phosphorus Magnesium Total Bilirubin AST ALT Alkaline Phosphatase Total Protein Albumin Opiates Screen Positive Methadone Screen Negative Barbiturate Screen Negative Phencyclidine Screen Negative Ur Amphetamines Screen Negative MDMA (Ecstasy) Screen Negative Benzodiazepines Screen Positive Cocaine Screen Negative U Marijuana (THC) Screen Negative 07/13/16 17:37 WBC RBC Hgb Hct MCV MCHC RDW Plt Count MPV Neutrophils % Lymphocytes % Monocytes % Eosinophils % Basophils % Puncture Site ABG pH ABG pCO2 at Pt Temp ABG pO2 at Pt Temp ABG HCO3 ABG O2 Sat (Measured) ABG O2 Content ABG Base Excess Marcial Test O2 Delivery Device Oxygen Flow Rate PEEP Sodium Potassium Chloride Carbon Dioxide Anion Gap BUN Creatinine Creat Clearance w eGFR POC Glucometer 299 Random Glucose Calcium Phosphorus Magnesium Total Bilirubin AST ALT Alkaline Phosphatase Total Protein Albumin Opiates Screen Methadone Screen Barbiturate Screen Phencyclidine Screen Ur Amphetamines Screen MDMA (Ecstasy) Screen Benzodiazepines Screen Cocaine Screen U Marijuana (THC) Screen Active Medications Generic Name Dose Route Start Last Admin Trade Name Freq PRN Reason Stop Dose Admin Acetaminophen 650 mg 07/13/16 00:13 Tylenol - PO Q4H PRN FEVER OR PAIN Albuterol Sulfate 1 amp 07/13/16 00:13 07/13/16 14:55 Ventolin 0.083% Nebulizer Soln - NEB 1 amp Q4H PRN Administration SHORT OF BREATH/WHEEZING Amlodipine Besylate 10 mg 07/13/16 10:00 07/13/16 11:20 Norvasc - PO 10 mg DAILY EDITH Administration Diazepam 10 mg 07/13/16 13:37 Valium - PO 07/16/16 13:36 Q4H PRN WITHDRAWAL(CONT SUBST) Heparin Sodium (Porcine) 5,000 unit 07/13/16 10:00 07/13/16 11:20 Heparin - SQ 5,000 unit BID EDITH Administration Insulin Aspart 1 vial 07/13/16 07:00 07/13/16 17:41 Novolog Vial Sliding Scale - SQ 6 unit ACHS EDITH Administration Protocol Labetalol HCl 100 mg 07/13/16 12:30 07/13/16 12:43 Normodyne - PO 100 mg BID EDITH Administration Methadone HCl 20 mg 07/14/16 10:00 Dolophine - PO 07/14/16 10:01 ONCE ONE Methadone HCl 10 mg 07/16/16 10:00 Dolophine - PO 07/16/16 10:01 ONCE ONE Methadone HCl 15 mg 07/15/16 10:00 Dolophine - PO 07/15/16 10:01 ONCE ONE Methadone HCl 5 mg 07/17/16 06:00 Dolophine - PO 07/17/16 06:01 ONCE@0600 ONE Prednisone 40 mg 07/13/16 10:00 07/13/16 11:20 Deltasone - PO 40 mg DAILY EDITH Administration ASSESSMENT/PLAN Patient is a 51 yo M with a PMH of polysubstance abuse (heroin, cocaine, ETOH) HTN, IDDM, and asthma who presents with asthma exacerbation after snorting heroin. Asthma exacerbation likely secondary to medication noncompliance and heroin abuse --duonebs q4h scheduled --prednisone 40mg daily --daily bedside peakflows Acute withdrawal from heroin --methadone taper ordered by Dr. Kate Hypertension --BP very elevated --restart home lisinopril 40mg --amlodipine 10mg IDDM --Levemir 10U qhs --Novolog sliding scale coverage F/E/N Fluids: PO intake adequate Electrolytes: replete as indicated Nutrition: diabetic low sodium DVT prophylaxis: subq heparin Dispo: continues to require inpatient care. Visit type - Emergency Visit Emergency Visit: Yes ED Registration Date: 07/12/16 Care time: The patient presented to the Emergency Department on the above date and was hospitalized for further evaluation of their emergent condition. - New Patient This patient is new to me today: Yes Date on this admission: 07/13/16 - Critical Care Critical Care patient: No
[2016-07-13] MEDS ORDERED: ALBUTEROL SO4 2.5/IPRATROPIUM 0.5 INH SOL 3 ML VIAL.NEB. NEB ONE (19:14)
[2016-07-13] MEDS: ALBUTEROL SO4 0.083% IH SOL 2.5 MG/3 ML VIAL.NEB. NEB SCH (22:09)
[2016-07-13] MEDS: INSULIN DETEMIR 100 UNITS/ML MDV SQ SCH (22:10)
[2016-07-13] MEDS: diazePAM 5 MG TABLET PO PRN (22:16)
[2016-07-14] MEDS: ALBUTEROL SO4 0.083% IH SOL 2.5 MG/3 ML VIAL.NEB. NEB SCH ×6 (03:41→22:35)
[2016-07-14] MEDS: INSULIN SLIDING SCALE (NOVOLOG) 1 VIAL SQ SCH ×4 (06:40→21:54)
[2016-07-14 08:51] LABS: BASOPHIL 1.3 % (0-2.0); EOSINOPHIL 0.2 % (0-4.5); MCH 27.4 pg (25.7-33.7); MCHC 31.5 g/dl (32.0-35.9); MEAN PLT VOLUME 7.9 fl (7.5-11.1); NEUTROPHILS 68.8 % (42.8-82.8); PLATELET COUNT 305 K/MM3 (134-434); WHITE BLOOD COUNT 15.7 K/mm3 (4.0-10.0)
[2016-07-14 09:13] LABS: ALBUMIN 3.1 g/dl (3.4-5.0); ANION GAP 11 (8-16); CALCIUM 8.7 mg/dL (8.5-10.1); CO2 27 mmol/L (21-32); GLUCOSE,RANDOM 190 mg/dL (74-106); MAGNESIUM 1.9 mg/dL (1.8-2.4)
[2016-07-14 09:18] LABS: ALK PHOS 126 U/L (45-117); BILIRUBIN,TOTAL 0.2 mg/dL (0.2-1.0); CREATININE 0.8 mg/dL (0.7-1.3); SGOT/AST 26 U/L (15-37); SGPT/ALT 81 U/L (12-78); TOT PROT 6.8 g/dl (6.4-8.2)
[2016-07-14] MEDS ORDERED: METHADONE HCL 10 MG TABLET PO ONE (10:00)
[2016-07-14] MEDS: HEPARIN NA (PORCINE) 5,000 UNITS/ML 1ML VIAL SQ SCH ×2 (10:39→21:50)
[2016-07-14] MEDS: predniSONE 20 MG TABLET (UD) PO SCH (10:40)
[2016-07-14] MEDS: amLODIPine BESYLATE 10 MG TABLET (FP) PO SCH (10:40)
[2016-07-14] MEDS: LABETALOL HCL 100 MG TABLET (FP) PO SCH ×2 (10:40→21:53)
--- NOTE | 2016-07-14 15:42 | DS ---
Physical Exam: SUBJECTIVE: Patient seen and examined OBJECTIVE: Vital Signs Period Temp Pulse Resp BP Sys/Jaime Pulse Ox Last 24 Hr 97.9 F-98.6 F 87-101 18-20 138-160/81-90 95-97 PHYSICAL EXAM GENERAL: The patient is awake, alert, and fully oriented, in no acute distress. HEAD: Normal with no signs of trauma. EYES: PERRL, extraocular movements intact, sclera anicteric, conjunctiva clear. No ptosis. LUNGS: Diffuse expiratory wheezing HEART: Regular rate and rhythm, S1, S2 without murmur, rub or gallop. ABDOMEN: Soft, nontender, nondistended, normoactive bowel sounds, no guarding, no rebound EXTREMITIES: 2+ pulses, warm, well-perfused, no edema. NEUROLOGICAL: Cranial nerves II through XII grossly intact. Normal speech, moves all extremities freely Laboratory Results - last 24 hr 07/13/16 07/13/16 07/14/16 17:37 22:06 06:39 WBC RBC Hgb Hct MCV MCHC RDW Plt Count MPV Neutrophils % Lymphocytes % Monocytes % Eosinophils % Basophils % Sodium Potassium Chloride Carbon Dioxide Anion Gap BUN Creatinine Creat Clearance w eGFR POC Glucometer 299 311 249 Random Glucose Calcium Magnesium Total Bilirubin AST ALT Alkaline Phosphatase Total Protein Albumin 07/14/16 07/14/16 07/14/16 08:00 08:00 12:19 WBC 15.7 H D RBC 4.69 Hgb 12.9 Hct 40.8 MCV 87.0 MCHC 31.5 L RDW 17.0 H Plt Count 305 D MPV 7.9 Neutrophils % 68.8 D Lymphocytes % 25.4 D Monocytes % 4.3 D Eosinophils % 0.2 D Basophils % 1.3 D Sodium 140 Potassium 4.0 D Chloride 102 Carbon Dioxide 27 Anion Gap 11 BUN 10 Creatinine 0.8 D Creat Clearance w eGFR > 60 POC Glucometer 217 Random Glucose 190 H D Calcium 8.7 Magnesium 1.9 Total Bilirubin 0.2 D AST 26 D ALT 81 H Alkaline Phosphatase 126 H Total Protein 6.8 Albumin 3.1 L HOSPITAL COURSE: Date of Admission:07/12/16 Date of Discharge: 07/14/16 Patient is a 51 yo M with a PMH of polysubstance abuse (heroin, cocaine, ETOH) HTN, IDDM, and asthma who presented with asthma exacerbation after snorting heroin. Asthma exacerbation likely secondary to medication noncompliance and heroin abuse --treated with duonebs q4h scheduled and prednisone 40mg daily --daily bedside peakflows Acute withdrawal from heroin --methadone taper ordered by Dr. Kate; discharged with a prescription to continue taper Hypertension --BP very elevated on admission, treated lisinopril 40mg and amlodipine 10mg IDDM --Levemir 10U qhs --Novolog sliding scale coverage Patient discharged with instructions on how to followup at [facility] on Sunday morning. Minutes to complete discharge: 35 Discharge Summary Reason For Visit: EXACERBATION OF ASTHMA Current Active Problems Alcohol dependence with uncomplicated withdrawal (Acute) Asthma exacerbation (Acute) Bronchitis (Acute) COPD exacerbation (Acute) DVT prophylaxis (Acute) HTN (hypertension) (Acute) IDDM (insulin dependent diabetes mellitus) (Acute) Opioid dependence with withdrawal (Acute) Sleep apnea syndrome (Acute) Condition: Improved - Instructions Referrals: Puneet Kate MD [Staff Physician] - Disposition: HOME - Home Medications Comprehensive Discharge Medication List: Ambulatory Orders Insulin (Novolog) [Novolog Flexpen -] 0 units SQ AC 07/12/16 Insulin Glargine,Hum.rec.anlog [Lantus (10mL VIAL) -] 10 units SQ HS 07/12/16 Amlodipine Besylate 10 mg PO DAILY 07/13/16 Lisinopril 07/13/16 Albuterol 0.083% Nebulizer Bryanna [Ventolin 0.083% Nebulizer Soln -] 1 amp NEB Q4HPO amp 07/14/16 Labetalol HCl [Normodyne -] 100 mg PO BID tablet 07/14/16 Methylprednisolone [Medrol Dose Chago] 4 mg PO ASDIR #21 tablet 07/14/16 This patient is new to me today: No Emergency Visit: Yes ED Registration Date: 07/12/16 Care time: The patient presented to the Emergency Department on the above date and was hospitalized for further evaluation of their emergent condition. Critical Care patient: No - Discharge Referral Referred to [facility] Med P.C.: No
[2016-07-14] MEDS ORDERED: INSULIN (NOVOLOG) ASPART 100 UNITS/ML 10ML VIAL ONE (21:06)
[2016-07-14] MEDS: INSULIN DETEMIR 100 UNITS/ML MDV SQ SCH (21:53)
[2016-07-15] MEDS: ALBUTEROL SO4 0.083% IH SOL 2.5 MG/3 ML VIAL.NEB. NEB SCH ×4 (01:44→14:43)
[2016-07-15] MEDS: INSULIN SLIDING SCALE (NOVOLOG) 1 VIAL SQ SCH ×2 (06:21→11:14)
[2016-07-15] MEDS ORDERED: METHADONE HCL 5 MG TABLET PO ONE (10:00)
[2016-07-15] MEDS: LABETALOL HCL 100 MG TABLET (FP) PO SCH (10:57)
[2016-07-15] MEDS: HEPARIN NA (PORCINE) 5,000 UNITS/ML 1ML VIAL SQ SCH (10:57)
[2016-07-15] MEDS: predniSONE 20 MG TABLET (UD) PO SCH (10:57)
[2016-07-15] MEDS: amLODIPine BESYLATE 10 MG TABLET (FP) PO SCH (10:57)
[2016-07-15] MEDS ORDERED: INSULIN (NOVOLOG) ASPART 100 UNITS/ML 10ML VIAL ONE (11:09)
[2016-07-15] MEDS: diazePAM 5 MG TABLET PO PRN (11:19)
[2016-07-15 14:21] VITALS: BP 141/80; PULSE 95; TEMP 98
[2016-07-16] MEDS ORDERED: METHADONE HCL 10 MG TABLET PO ONE (10:00)
[2016-07-17] MEDS ORDERED: METHADONE HCL 5 MG TABLET PO ONE (06:00)
== END 2016-07-15 15:31 | disposition home or self-care (01) | DRG 141 ==
LOC: JER 21:22 → JERBED 23:20 → UNDOADMIN 23:51 → JERBED 23:51 → J7W 07-13 01:36
PROVIDERS: ADMIT Internal Medicine; ATTEND Nurse Practitioner Acute Care
DX: J45.901 Unspecified asthma with (acute) exacerbation (principal); I10 Essential (primary) hypertension; E11.9 Type 2 diabetes mellitus without complications; F17.210 Nicotine dependence, cigarettes, uncomplicated; E78.5 Hyperlipidemia, unspecified; F11.23 Opioid dependence with withdrawal; Z91.14 Patient's other noncompliance with medication regimen
CPT/HCPCS: 36415; 36600; 71010-TC; 80053; 80307; 81003; 82803; 83735; 83880; 84100; 85025; 85610; 87040; 93005; 93010; 94150; 94640; 94761; 99284-25; G0008; J1644; Q2037

== ENCOUNTER 2016-10-20 11:11 | Inpatient (IN) | payer OTHER ==
[2016-10-20 12:22] VITALS: BMI 28.3
--- NOTE | 2016-10-20 14:09 | HP ---
CIWA Score - CIWA Score Nausea/Vomitin Muscle Tremors: 3 Anxiety: 3 Agitation: 2 Paroxysmal Sweats: 2 Orientation: 0-Oriented Tacttile Disturbances: 2-Mild Itch/Numbness/Burn Auditory Disturbances: 2-Mild Harshness/Frighten Visual Disturbances: 2-Mild Sensitivity Headache: 2-Mild CIWA-Ar Total Score: 21 Admission ROS BHS - HPI Chief Complaint: i8 need help to stop drinking alcohol,cocaine ,pcp Allergies/Adverse Reactions: Allergies Allergy/AdvReac Type Severity Reaction Status Date / Time almond oil [[place] Oil] Allergy Unknown Allergy to Verified 10/20/16 13:49 Almonds No Known Drug Allergies Allergy Verified 10/20/16 13:49 ALMONDS Allergy Severe Rash Uncoded 10/20/16 13:49 History of Present Illness: this 51 years old male with alcohol,cocaine dependence and pcp abused,seeking help to stop hypertension hypercholesterolemia david type 2 dm neuropathy no significant period of sobriety Exam Limitations: No Limitations - Ebola screening Have you traveled outside of the country in the last 21 days: No Have you had contact with anyone from an Ebola affected area: No Have you been sick,other than usual withdrawal symptoms: No Do you have a fever: No - Review of Systems Constitutional: Loss of Appetite, Malaise, Night Sweats, Changes in sleep, Weakness, Unintentional Wgt. Loss EENT: reports: Tearing, Nose Congestion Cardiac: reports: No Symptoms Reported GI: reports: Nausea, Vomiting (s/p surgery for diverticulitis in 2012), Abdominal cramping : reports: No Symptoms Reported Musculoskeletal: reports: Back Pain, Joint Pain, Muscle Pain, Neck Pain Integumentary: reports: Dryness Neuro: reports: Headache, Tremors Endocrine: reports: No Symptoms Reported Hematology: reports: No Symptoms Reported Psychiatric: reports: No Sypmtoms Reported, Judgement Intact, Mood/Affect Appropiate, other (pcp) Patient History - Patient Medical History Hx Anemia: No Hx Asthma: Yes (on albuterol inhaler) Hx Chronic Obstructive Pulmonary Disease (COPD): No Hx Cancer: No Hx Cardiac Disorders: No Hx Congestive Heart Failure: No Hx Hypertension: Yes Hx Hypercholesterolemia: No Hx Pacemaker: No HX Cerebrovascular Accident: No Hx Seizures: No Hx Dementia: No Hx Diabetes: Yes Hx Gastrointestinal Disorders: Yes (hernia incional ) Hx Liver Disease: No Hx Genitourinary Disorders: No Hx Sexually Transmitted Disorders: No Hx Renal Disease (ESRD): No Hx Thyroid Disease: No Hx Human Immunodeficiency Virus (HIV): No (negative) Hx Hepatitis C: No Hx Depression: No Hx Suicide Attempt: No Hx Bipolar Disorder: No Hx Schizophrenia: No Other Medical History: no suicidal,no homicidal - Patient Surgical History Past Surgical History: Yes Hx Neurologic Surgery: No Hx Cataract Extraction: No Hx Cardiac Surgery: No Hx Lung Surgery: No Hx Breast Surgery: No Hx Breast Biopsy: No Hx Abdominal Surgery: Yes (colostomy reversal 02/12/15, hernia) Hx Appendectomy: No Hx Cholecystectomy: No Hx Genitourinary Surgery: No Hx Section: No Hx Orthopedic Surgery: Yes (left rotator cuff surgery 2 years ago) Other Surgical History: UMBILICAL HERNIA REPAIR Anesthesia Reaction: No - PPD History Documented Results: Negative w/o proof Date: 08/29/15 Results: 0 mm - Smoking Cessation Smoking history: Former smoker Have you smoked in the past 12 months: No Aproximately how many cigarettes per day: 2 Cigars Per Day: 0 Hx Chewing Tobacco Use: No Initiated information on smoking cessation: Yes 'Breaking Loose' booklet given: 10/20/16 - Substance & Tx. History Hx Alcohol Use: Yes Hx Substance Use: Yes Substance Use Type: Cocaine, Opiates Hx Substance Use Treatment: Yes ([facility] 07/12/16 to 07/15/16) - Substances Abused Alcohol Route: Oral Frequency: Daily Amount used: porfirio(1pint)/rum(1pint) Age of first use: 29 Date of Last Use: 10/19/16 Cocaine Route: Inhalation Frequency: Daily Amount used: 1.5 gms Age of first use: 29 Date of Last Use: 10/19/16 Heroin Route: Inhalation Frequency: Daily Amount used: 15 bags Age of first use: 29 Date of Last Use: 10/19/16 PCP Route: Smoking Frequency: 1-3 times last 30 days Age of first use: 29 Date of Last Use: 10/12/16 Family Disease History - Family Disease History Family Disease History: [place]: Father () Admission Physical Exam BHS - Vital Signs Vital Signs: Vital Signs - 24 hr 10/20/16 12:17 Temperature 97.1 F L Pulse Rate 102 H Respiratory 18 Rate Blood Pressure 190/100 - Physical General Appearance: Yes: Moderate Distress, Tremorous, Irritable, Sweating, Anxious HEENTM: Yes: Hearing grossly Normal, Normal ENT Inspection, SAL Respiratory: Yes: Lungs Clear, Normal Breath Sounds, No Respiratory Distress, Wheezing Neck: Yes: Within Normal Limits, Supple, Trachea in good position Breast: Yes: Within Normal Limits Cardiology: Yes: Within Normal Limits, Regular Rhythm, Regular Rate Abdominal: Yes: Normal Bowel Sounds, Non Tender, Flat, Soft, Surgical Scar ( incisional hernia) Genitourinary: Yes: Within Normal Limits Back: Yes: Normal Inspection, Muscle Spasm Musculoskeletal: Yes: Back pain, Joint Stiffness, Muscle Pain Extremities: Yes: Within Normal Limits, Normal Capillary Refill, Normal Inspection, Tremors Neurological: Yes: director of education II-XII NML intact, Fully Oriented, Alert, Motor Strength 5/5 Integumentary: Yes: Dry Lymphatic: Yes: Within Normal Limits Cleared for Admission [facility] - Detox or Rehab [facility] Level of Care: Medically Managed Detox Regimen/Protocol: Methadone/Librium [facility] Breath Alcohol Content Breath Alcohol Content: 0 Urine Drug Screen - Results Drug Screen Negative: No Urine Drug Screen Results: ANA-Cocaine, OPI-Opiates, PCP-Phencyclidine, BZO- Benzodiazepines
[2016-10-20] MEDS ORDERED: MAGNESIUM HYDROX 2400MG/30ML ORAL SUSPENSION 30 ML CUP PO PRN (14:28)
[2016-10-20] MEDS ORDERED: MAGNESIUM CITRATE 300 ML BOTTLE PO PRN (14:28)
[2016-10-20] MEDS ORDERED: MAG HYDROX/AL HYDROX/SIMETH 30 ML UNIT-DOSE CUP PO PRN (14:28)
[2016-10-20] MEDS ORDERED: chlordiazePOXIDE HCL 25 MG CAPSULE PO PRN (14:28)
[2016-10-20] MEDS ORDERED: MENTHOL/PHENOL 1 EACH UD MM PRN (14:28)
[2016-10-20] MEDS ORDERED: diphenhydrAMINE HCL 50 MG CAPSULE PO PRN (14:28)
[2016-10-20] MEDS ORDERED: P-EPHED 60MG/TRIPROLIDI 2.5MG TABLET PO PRN (14:28)
[2016-10-20] MEDS ORDERED: hydrOXYzine PAMOATE 50 MG CAPSULE (FP) PO PRN (14:28)
[2016-10-20] MEDS ORDERED: guaiFENesin/D-METHORPHAN HB 10 ML UNIT-DOSE CUPS PO PRN (14:28)
[2016-10-20] MEDS ORDERED: ACETAMINOPHEN 325 MG TABLET (FP) PO PRN (14:28)
[2016-10-20] MEDS ORDERED: LOPERAMIDE HCL 2 MG CAPSULE PO PRN (14:28)
[2016-10-20] MEDS ORDERED: LISINOPRIL 20 MG TABLET (FP) PO ONE (14:42)
[2016-10-20] MEDS ORDERED: LISINOPRIL 40 MG PO SCH (14:45)
[2016-10-20] MEDS ORDERED: METHADONE HCL 10 MG TABLET (FOR DETOX USE ONLY) PO ONE ×2 (14:51→23:00)
[2016-10-20] MEDS ORDERED: LABETALOL HCL 100 MG TABLET (FP) PO ONE (15:36)
[2016-10-20] MEDS ORDERED: ALBUTEROL SO4 6.7 GM HFA INHALER IH ONE (15:50)
--- NOTE | 2016-10-20 15:53 | CONSULT ---
[facility] Psychiatric Consult - Data Date of interview: 10/20/16 Admission source: [facility] Identifying data: Readmission to [facility] for this 51 y/o AA male seeking detox treatment for heroin,alcohol and phencyclidine dependence.Patient is single,father of one,homeless,unemployed and evasive on the issue of financial support. Substance Abuse History: - Smoking Cessation. Smoking history: Former smoker. Have you smoked in the past 12 months: No. Aproximately how many cigarettes per day: 2. Cigars Per Day: 0. Hx Chewing Tobacco Use: No. Initiated information on smoking cessation: Yes. 'Breaking Loose' booklet given: . - Substance & Tx. History. Hx Alcohol Use: Yes. Hx Substance Use: Yes. Substance Use Type: Cocaine, Opiates. Hx Substance Use Treatment: Yes ([facility] 12/21 to 07/15/16). - Substances Abused. Alcohol. Route: Oral. Frequency : Daily. Amount used: porfirio(1pint)/rum(1pint). Age of first use: 29. Date of Last Use: 10/19/16. Cocaine. Route: Inhalation. Frequency: Daily. Amount used: 1.5 gms. Age of first use: 29. Date of Last Use: 10/19/16. Heroin. Route: Inhalation. Frequency: Daily. Amount used: 15 bags. Age of first use: 29. Date of Last Use: 10/19/16. PCP. Route: Smoking. Frequency : 1-3 times last 30 days. Age of first use: 29. Date of Last Use: 10/12/16. Confirmed by patient. Medical History: Hypercholesterolemia,bronchial asthma,hypertension,diabetes mellitus,obesity,neuropathy and a history of umbilical herniorraphy.Noted report of past reversal of colostomy (2014) for diverticulitis and orthosurgery for rotator cuff repair two years ago (left shoulder). Psychiatric History: Patient denies. Physical/Sexual Abuse/Trauma History: Patient denies. Additional Comment: Urine Drug Screen Results: ANA-Cocaine, OPI-Opiates, PCP- Phencyclidine, BZO-Benzodiazepines.Noted. Mental Status Exam - Mental Status Exam Alert and Oriented to: Time, Place, Person Cognitive Function: Good Patient Appearance: Well Groomed Mood: Anxious, Apprehensive, Irritable Affect: Mood Congruent Patient Behavior: Fatigued, Guarded, Cooperative (marginally) Speech Pattern: Clear Voice Loudness: Normal Thought Process: Goal Oriented Thought Disorder: Not Present Hallucinations: Denies Suicidal Ideation: Denies Homicidal Ideation: Denies Insight/Judgement: Poor Sleep: Poorly, Difficulty falling asleep Appetite: Good Muscle strength/Tone: Normal Gait/Station: Normal Psychiatric Findings - Problem List ([place] 1, 2,3) (1) Alcohol dependence with uncomplicated withdrawal Current Visit: Yes Status: Acute (2) Opioid dependence with withdrawal Current Visit: Yes Status: Acute (3) Nicotine dependence Current Visit: Yes Status: Chronic Qualifiers: Nicotine product type: cigarettes Substance use status: uncomplicated Qualified Code(s): F17.210 - Nicotine dependence, cigarettes, uncomplicated (4) PCP dependence Current Visit: Yes Status: Acute (5) Cocaine dependence Current Visit: Yes Status: Acute Qualifiers: Substance use status: uncomplicated Qualified Code(s): F14.20 - Cocaine dependence, uncomplicated (6) Substance induced mood disorder Current Visit: Yes Status: Acute (7) COPD exacerbation Current Visit: Yes Status: Chronic (8) HTN (hypertension) Current Visit: Yes Status: Chronic Qualifiers: Hypertension type: essential hypertension Qualified Code(s): I10 - Essential (primary) hypertension (9) Sleep apnea syndrome Current Visit: Yes Status: Chronic (10) Diabetes mellitus Current Visit: Yes Status: Chronic Qualifiers: Diabetes mellitus type: type 2 Diabetes mellitus complication status: without complication Diabetes mellitus correction insulin use: unspecified predatory animal exterminator insulin use status Qualified Code(s): E11.9 - Type 2 diabetes mellitus without complications (11) Essential hypertension Current Visit: Yes Status: Chronic (12) Hyperlipidemia Current Visit: Yes Status: Chronic Qualifiers: Hyperlipidemia type: unspecified Qualified Code(s): E78.5 - Hyperlipidemia, unspecified (13) IDDM (insulin dependent diabetes mellitus) Current Visit: Yes Status: Chronic (14) Abdominal hernia Current Visit: Yes Status: Chronic Qualifiers: Hernia type: umbilical (15) Asthma Current Visit: Yes Status: Chronic Qualifiers: - Initial Treatment Plan Initial Treatment Plan: Previuous records are reviewed.Psychoeducation.Detoxification is initiated.Insomnia is addressed with benadryl 50 mg po hs prn.Patient made aware of side effects/benefits.He is in agreement with this careplan.
[2016-10-20] MEDS ORDERED: amLODIPine BESYLATE 10 MG TABLET (FP) PO ONE (15:55)
[2016-10-20] MEDS: metFORMIN HCL 500 MG TABLET (FP) PO SCH (16:56)
[2016-10-20] MEDS: chlordiazePOXIDE HCL 25 MG CAPSULE PO SCH ×2 (16:56→22:31)
[2016-10-20] MEDS: INSULIN (NOVOLOG) ASPART 100 UNITS/ML 10ML VIAL SQ SCH ×2 (16:58→22:34)
[2016-10-20 19:12] LABS: HIV 1 & 2 AB NEGATIVE; HIV 1 AGp24 NEGATIVE
[2016-10-20] MEDS ORDERED: INSULIN (NOVOLOG) ASPART 100 UNITS/ML 10ML VIAL ONE (21:17)
[2016-10-20] MEDS: LABETALOL HCL 100 MG TABLET (FP) PO SCH (22:30)
[2016-10-20] MEDS: THIAMINE HCL 100 MG TABLET (FP) PO SCH (22:31)
[2016-10-20] MEDS: INSULIN DETEMIR 100 UNITS/ML MDV SQ SCH (22:33)
[2016-10-21] LABS: URINE APPEARANCE CLEAR; URINE BILIRUBIN NEGATIVE (NEGATIVE); URINE BLOOD NEGATIVE (NEGATIVE); URINE COLOR YELLOW; URINE GLUCOSE (UA) 2+ (NEGATIVE); URINE KETONE NEGATIVE (NEGATIVE); URINE LEUK ESTERASE NEGATIVE (NEGATIVE); URINE NITRITE NEGATIVE (NEGATIVE); URINE PROTEIN NEGATIVE (NEGATIVE); URINE UROBILINOGEN NEGATIVE E.U./dl (0.2-1.0)
[2016-10-21] MEDS: chlordiazePOXIDE HCL 25 MG CAPSULE PO SCH ×4 (05:33→21:59)
[2016-10-21] MEDS: INSULIN (NOVOLOG) ASPART 100 UNITS/ML 10ML VIAL SQ SCH ×5 (06:56→21:20)
[2016-10-21] MEDS: metFORMIN HCL 500 MG TABLET (FP) PO SCH ×2 (06:58→17:09)
[2016-10-21] MEDS: IBUPROFEN 400 MG TABLET (FP) PO PRN ×2 (09:08→17:13)
[2016-10-21] MEDS ORDERED: METHADONE HCL 10 MG TABLET (FOR DETOX USE ONLY) PO SCH (10:00)
--- NOTE | 2016-10-21 10:02 | EKG ---
Test Reason : Blood Pressure : / mmHG Vent. Rate : 094 BPM Atrial Rate : 094 BPM P-R Int : 134 ms QRS Dur : 092 ms QT Int : 388 ms P-R-T Axes : 079 080 075 degrees QTc Int : 485 ms NORMAL SINUS RHYTHM PROLONGED QT ABNORMAL ECG Confirmed by JONES FLOYD MD ([id number]) on 10/21/2016 10:02:24 AM Referred By: Confirmed By:JONES FLOYD MD
[2016-10-21] MEDS: CYCLOBENZAPRINE HCL 10 MG TABLET (FP) PO PRN ×2 (10:05→21:59)
[2016-10-21] MEDS: LABETALOL HCL 100 MG TABLET (FP) PO SCH ×2 (10:06→21:59)
[2016-10-21] MEDS: predniSONE 20 MG TABLET (UD) PO SCH (10:06)
[2016-10-21] MEDS: PRENATAL VITAMINS W/ FOLIC ACID TABLET (FP) PO SCH (10:06)
[2016-10-21] MEDS: amLODIPine BESYLATE 10 MG TABLET (FP) PO SCH (10:07)
[2016-10-21] MEDS: LISINOPRIL 20 MG TABLET (FP) PO SCH (10:07)
[2016-10-21] MEDS: LIDOCAINE 5% TOPICAL PATCH TP SCH (10:07)
[2016-10-21 10:13] LABS: MCH 30.1 pg (25.7-33.7); MEAN CELL VOLUME 91.2 fl (80-96); MEAN PLT VOLUME 8.4 fl (7.5-11.1); PLATELET COUNT 308 K/MM3 (134-434); RDW 18.1 % (11.9-15.9); WHITE BLOOD COUNT 7.9 K/mm3 (4.0-10.0)
[2016-10-21 10:56] LABS: ALBUMIN 3.6 g/dl (3.4-5.0); ALK PHOS 121 U/L (45-117); ANION GAP 9 (8-16); BILIRUBIN,TOTAL 0.5 mg/dL (0.2-1.0); CO2 28 mmol/L (21-32); CREATININE 1.1 mg/dL (0.7-1.3); GLUCOSE,RANDOM 190 mg/dL (74-106); SGOT/AST 34 U/L (15-37); SGPT/ALT 41 U/L (12-78); TOT PROT 7.5 g/dl (6.4-8.2)
[2016-10-21] MEDS: ALBUTEROL SO4 6.7 GM HFA INHALER IH PRN ×2 (11:32→17:12)
[2016-10-21] MEDS ORDERED: INSULIN (NOVOLOG) ASPART 100 UNITS/ML 10ML VIAL ONE (16:53)
--- NOTE | 2016-10-21 17:28 | PN ---
S CIWA - CIWA Score Nausea/Vomitin Muscle Tremors: 3 Anxiety: 3 Agitation: 3 Paroxysmal Sweats: 3 Orientation: 0-Oriented Tacttile Disturbances: 3-Moderate Itch/Numb/Burn Auditory Disturbances: 0-None Visual Disturbances: 0-None Headache: 0-None Present CIWA-Ar Total Score: 20 S Progress Note (SOAP) Subjective: Interrupted Sleep, Tremors, Sweating, Diarrhea, Body Aches, Vomiting. Objective: PT. A & O X 3, OBSERVED AMBULATING ON UNIT. NO ACUTE DISTRESS. PATIENT DENIES CHEST PAIN. 10/21/16 17:24 Vital Signs Temperature 98.3 F 10/21/16 17:14 Pulse Rate 106 H 10/21/16 17:14 Respiratory Rate 18 10/21/16 17:14 Blood Pressure 139/81 10/21/16 17:14 O2 Sat by Pulse Oximetry (%) Laboratory Tests 10/20/16 10/20/16 10/20/16 14:07 15:59 16:22 WBC RBC Hgb Hct MCV MCHC RDW Plt Count MPV Sodium Potassium Chloride Carbon Dioxide Anion Gap BUN Creatinine Creat Clearance w eGFR POC Glucometer 112 107 Random Glucose Calcium Total Bilirubin AST ALT Alkaline Phosphatase Total Protein Albumin Urine Color Urine Appearance Urine pH Ur Specific [place] Urine Protein Urine Glucose (UA) Urine Ketones Urine Blood Urine Nitrite Urine Bilirubin Urine Urobilinogen Ur Leukocyte Esterase HIV 1&2 Antibody Screen Negative HIV P24 Antigen Negative 10/20/16 10/20/16 10/21/16 20:23 20:40 05:32 WBC RBC Hgb Hct MCV MCHC RDW Plt Count MPV Sodium Potassium Chloride Carbon Dioxide Anion Gap BUN Creatinine Creat Clearance w eGFR POC Glucometer 217 135 Random Glucose Calcium Total Bilirubin AST ALT Alkaline Phosphatase Total Protein Albumin Urine Color Yellow Urine Appearance Clear Urine pH 6.0 Ur Specific [place] 1.020 Urine Protein Negative Urine Glucose (UA) 2+ H Urine Ketones Negative Urine Blood Negative Urine Nitrite Negative Urine Bilirubin Negative Urine Urobilinogen Negative Ur Leukocyte Esterase Negative HIV 1&2 Antibody Screen HIV P24 Antigen 10/21/16 10/21/16 10/21/16 06:10 06:10 11:29 WBC 7.9 D RBC 4.57 Hgb 13.8 Hct 41.7 MCV 91.2 MCHC 33.0 RDW 18.1 H Plt Count 308 MPV 8.4 Sodium 137 Potassium 4.4 Chloride 100 Carbon Dioxide 28 Anion Gap 9 BUN 13 D Creatinine 1.1 D Creat Clearance w eGFR > 60 POC Glucometer 139 Random Glucose 190 H Calcium 9.0 Total Bilirubin 0.5 D AST 34 D ALT 41 D Alkaline Phosphatase 121 H Total Protein 7.5 Albumin 3.6 Urine Color Urine Appearance Urine pH Ur Specific [place] Urine Protein Urine Glucose (UA) Urine Ketones Urine Blood Urine Nitrite Urine Bilirubin Urine Urobilinogen Ur Leukocyte Esterase HIV 1&2 Antibody Screen HIV P24 Antigen 10/21/16 16:29 WBC RBC Hgb Hct MCV MCHC RDW Plt Count MPV Sodium Potassium Chloride Carbon Dioxide Anion Gap BUN Creatinine Creat Clearance w eGFR POC Glucometer 302 Random Glucose Calcium Total Bilirubin AST ALT Alkaline Phosphatase Total Protein Albumin Urine Color Urine Appearance Urine pH Ur Specific [place] Urine Protein Urine Glucose (UA) Urine Ketones Urine Blood Urine Nitrite Urine Bilirubin Urine Urobilinogen Ur Leukocyte Esterase HIV 1&2 Antibody Screen HIV P24 Antigen LABS NOTED. Assessment: 10/21/16 17:25 WITHDRAWAL SYMPTOMS. Plan: CONTINUE DETOX. PRN FLEXERIL FOR BODY ACHES / MUSCLE SPASMS.
[2016-10-21] MEDS ORDERED: NICOTINE POLACRILEX 2 MG GUM BUC PRN (17:33)
[2016-10-21] MEDS: INSULIN DETEMIR 100 UNITS/ML MDV SQ SCH (21:08)
[2016-10-21] MEDS: LIDOCAINE PATCH REMOVAL MC SCH (21:59)
[2016-10-21] MEDS: THIAMINE HCL 100 MG TABLET (FP) PO SCH (22:00)
[2016-10-22] MEDS: chlordiazePOXIDE HCL 25 MG CAPSULE PO SCH ×2 (05:32→10:20)
[2016-10-22] MEDS: IBUPROFEN 400 MG TABLET (FP) PO PRN (05:33)
[2016-10-22] MEDS: metFORMIN HCL 500 MG TABLET (FP) PO SCH ×2 (07:03→17:12)
[2016-10-22] MEDS ORDERED: INSULIN (NOVOLOG) ASPART 100 UNITS/ML 10ML VIAL ONE ×4 (07:50→21:19)
[2016-10-22] MEDS: INSULIN (NOVOLOG) ASPART 100 UNITS/ML 10ML VIAL SQ SCH ×4 (07:53→21:23)
[2016-10-22] MEDS: LIDOCAINE 5% TOPICAL PATCH TP SCH (10:18)
[2016-10-22] MEDS: predniSONE 20 MG TABLET (UD) PO SCH (10:19)
[2016-10-22] MEDS: METHADONE HCL 5 MG TABLET (FOR DETOX USE ONLY) PO SCH (10:19)
[2016-10-22] MEDS: LISINOPRIL 20 MG TABLET (FP) PO SCH (10:21)
[2016-10-22] MEDS: amLODIPine BESYLATE 10 MG TABLET (FP) PO SCH (10:21)
[2016-10-22] MEDS: LABETALOL HCL 100 MG TABLET (FP) PO SCH ×2 (10:21→21:55)
[2016-10-22] MEDS: PRENATAL VITAMINS W/ FOLIC ACID TABLET (FP) PO SCH (10:22)
--- NOTE | 2016-10-22 14:49 | PN ---
S CIWA - CIWA Score Nausea/Vomitin Muscle Tremors: 4-Moderate,w/Arms Extend Anxiety: 4-Mod. Anxious/Guarded Agitation: 4-Moderately Restless Paroxysmal Sweats: 3 Orientation: 0-Oriented Tacttile Disturbances: 1-Very Mild Itch/Numbness Auditory Disturbances: 0-None Visual Disturbances: 0-None Headache: 2-Mild CIWA-Ar Total Score: 21 BHS Progress Note (SOAP) Subjective: Nausea, tremor, chills, interrupted sleep, sweating Objective: Last Vital Signs Temp Pulse Resp BP Pulse Ox 97.4 F L 98 H 18 155/94 10/22/16 13:19 10/22/16 13:19 10/22/16 13:19 10/22/16 13:19 Laboratory Tests 10/20/16 10/20/16 10/20/16 14:07 15:59 16:22 WBC RBC Hgb Hct MCV MCHC RDW Plt Count MPV Sodium Potassium Chloride Carbon Dioxide Anion Gap BUN Creatinine Creat Clearance w eGFR POC Glucometer 112 107 Random Glucose Calcium Total Bilirubin AST ALT Alkaline Phosphatase Total Protein Albumin Urine Color Urine Appearance Urine pH Ur Specific [place] Urine Protein Urine Glucose (UA) Urine Ketones Urine Blood Urine Nitrite Urine Bilirubin Urine Urobilinogen Ur Leukocyte Esterase RPR Titer HIV 1&2 Antibody Screen Negative HIV P24 Antigen Negative 10/20/16 10/20/16 10/21/16 20:23 20:40 05:32 WBC RBC Hgb Hct MCV MCHC RDW Plt Count MPV Sodium Potassium Chloride Carbon Dioxide Anion Gap BUN Creatinine Creat Clearance w eGFR POC Glucometer 217 135 Random Glucose Calcium Total Bilirubin AST ALT Alkaline Phosphatase Total Protein Albumin Urine Color Yellow Urine Appearance Clear Urine pH 6.0 Ur Specific [place] 1.020 Urine Protein Negative Urine Glucose (UA) 2+ H Urine Ketones Negative Urine Blood Negative Urine Nitrite Negative Urine Bilirubin Negative Urine Urobilinogen Negative Ur Leukocyte Esterase Negative RPR Titer HIV 1&2 Antibody Screen HIV P24 Antigen 10/21/16 10/21/16 10/21/16 06:10 06:10 06:10 WBC 7.9 D RBC 4.57 Hgb 13.8 Hct 41.7 MCV 91.2 MCHC 33.0 RDW 18.1 H Plt Count 308 MPV 8.4 Sodium 137 Potassium 4.4 Chloride 100 Carbon Dioxide 28 Anion Gap 9 BUN 13 D Creatinine 1.1 D Creat Clearance w eGFR > 60 POC Glucometer Random Glucose 190 H Calcium 9.0 Total Bilirubin 0.5 D AST 34 D ALT 41 D Alkaline Phosphatase 121 H Total Protein 7.5 Albumin 3.6 Urine Color Urine Appearance Urine pH Ur Specific [place] Urine Protein Urine Glucose (UA) Urine Ketones Urine Blood Urine Nitrite Urine Bilirubin Urine Urobilinogen Ur Leukocyte Esterase RPR Titer Nonreactive HIV 1&2 Antibody Screen HIV P24 Antigen 10/21/16 10/21/16 10/22/16 11:29 16:29 05:31 WBC RBC Hgb Hct MCV MCHC RDW Plt Count MPV Sodium Potassium Chloride Carbon Dioxide Anion Gap BUN Creatinine Creat Clearance w eGFR POC Glucometer 139 302 218 Random Glucose Calcium Total Bilirubin AST ALT Alkaline Phosphatase Total Protein Albumin Urine Color Urine Appearance Urine pH Ur Specific [place] Urine Protein Urine Glucose (UA) Urine Ketones Urine Blood Urine Nitrite Urine Bilirubin Urine Urobilinogen Ur Leukocyte Esterase RPR Titer HIV 1&2 Antibody Screen HIV P24 Antigen 10/22/16 11:31 WBC RBC Hgb Hct MCV MCHC RDW Plt Count MPV Sodium Potassium Chloride Carbon Dioxide Anion Gap BUN Creatinine Creat Clearance w eGFR POC Glucometer 199 Random Glucose Calcium Total Bilirubin AST ALT Alkaline Phosphatase Total Protein Albumin Urine Color Urine Appearance Urine pH Ur Specific [place] Urine Protein Urine Glucose (UA) Urine Ketones Urine Blood Urine Nitrite Urine Bilirubin Urine Urobilinogen Ur Leukocyte Esterase RPR Titer HIV 1&2 Antibody Screen HIV P24 Antigen Labs noted: UA 2+ glucose Assessment: 10/22/16 14:49 Withdrawal symptoms Glycosuria Plan: Continue detox Glycosuria secondary to DMT2: encouraged to drink lots of water, repeat UA
[2016-10-22] MEDS: chlordiazePOXIDE 5 MG CAPSULE PO SCH ×2 (17:12→22:05)
[2016-10-22] MEDS: ALBUTEROL SO4 6.7 GM HFA INHALER IH PRN ×2 (17:39→22:26)
[2016-10-22] MEDS: INSULIN DETEMIR 100 UNITS/ML MDV SQ SCH (21:24)
[2016-10-22] MEDS: CYCLOBENZAPRINE HCL 10 MG TABLET (FP) PO PRN (21:55)
[2016-10-22] MEDS: THIAMINE HCL 100 MG TABLET (FP) PO SCH (21:55)
[2016-10-22] MEDS: LIDOCAINE PATCH REMOVAL MC SCH (21:56)
[2016-10-23] MEDS: chlordiazePOXIDE 5 MG CAPSULE PO SCH ×2 (05:52→10:34)
[2016-10-23] MEDS ORDERED: INSULIN (NOVOLOG) ASPART 100 UNITS/ML 10ML VIAL ONE ×5 (07:13→21:15)
[2016-10-23] MEDS: metFORMIN HCL 500 MG TABLET (FP) PO SCH ×2 (07:19→17:13)
[2016-10-23] MEDS: INSULIN (NOVOLOG) ASPART 100 UNITS/ML 10ML VIAL SQ SCH ×4 (07:21→22:31)
[2016-10-23] MEDS ORDERED: amLODIPine BESYLATE 10 MG TABLET (FP) PO ONE (07:32)
[2016-10-23] MEDS ORDERED: IBUPROFEN 400 MG TABLET (FP) PO PRN (09:24)
[2016-10-23 10:21] LABS: URINE APPEARANCE CLEAR; URINE BILIRUBIN NEGATIVE (NEGATIVE); URINE BLOOD NEGATIVE (NEGATIVE); URINE COLOR STRAW; URINE GLUCOSE (UA) 3+ (NEGATIVE); URINE KETONE NEGATIVE (NEGATIVE); URINE LEUK ESTERASE NEGATIVE (NEGATIVE); URINE NITRITE NEGATIVE (NEGATIVE); URINE PROTEIN NEGATIVE (NEGATIVE); URINE UROBILINOGEN NEGATIVE E.U./dl (0.2-1.0)
[2016-10-23] MEDS: METHADONE HCL 5 MG TABLET (FOR DETOX USE ONLY) PO SCH (10:33)
[2016-10-23] MEDS: predniSONE 20 MG TABLET (UD) PO SCH (10:34)
[2016-10-23] MEDS: PRENATAL VITAMINS W/ FOLIC ACID TABLET (FP) PO SCH (10:35)
[2016-10-23] MEDS: LABETALOL HCL 100 MG TABLET (FP) PO SCH ×2 (10:35→22:32)
[2016-10-23] MEDS: LISINOPRIL 20 MG TABLET (FP) PO SCH (10:35)
[2016-10-23] MEDS: LIDOCAINE 5% TOPICAL PATCH TP SCH (10:38)
--- NOTE | 2016-10-23 14:21 | PN ---
[facility] Progress Note (SOAP) Subjective: Sweating,interrupted sleep,restless. Objective: 10/23/16 14:18 Vital Signs - 8 hr 10/23/16 10/23/16 10/23/16 06:45 09:50 13:48 Temperature 98.1 F 98.6 F 98.2 F Pulse Rate 75 103 H 102 H Respiratory 18 20 18 Rate Blood Pressure 179/93 150/83 153/87 Laboratory Tests 10/20/16 10/20/16 10/20/16 14:07 15:59 16:22 WBC RBC Hgb Hct MCV MCHC RDW Plt Count MPV Sodium Potassium Chloride Carbon Dioxide Anion Gap BUN Creatinine Creat Clearance w eGFR POC Glucometer 112 107 Random Glucose Calcium Total Bilirubin AST ALT Alkaline Phosphatase Total Protein Albumin Urine Color Urine Appearance Urine pH Ur Specific [place] Urine Protein Urine Glucose (UA) Urine Ketones Urine Blood Urine Nitrite Urine Bilirubin Urine Urobilinogen Ur Leukocyte Esterase RPR Titer HIV 1&2 Antibody Screen Negative HIV P24 Antigen Negative 10/20/16 10/20/16 10/21/16 20:23 20:40 05:32 WBC RBC Hgb Hct MCV MCHC RDW Plt Count MPV Sodium Potassium Chloride Carbon Dioxide Anion Gap BUN Creatinine Creat Clearance w eGFR POC Glucometer 217 135 Random Glucose Calcium Total Bilirubin AST ALT Alkaline Phosphatase Total Protein Albumin Urine Color Yellow Urine Appearance Clear Urine pH 6.0 Ur Specific [place] 1.020 Urine Protein Negative Urine Glucose (UA) 2+ H Urine Ketones Negative Urine Blood Negative Urine Nitrite Negative Urine Bilirubin Negative Urine Urobilinogen Negative Ur Leukocyte Esterase Negative RPR Titer HIV 1&2 Antibody Screen HIV P24 Antigen 10/21/16 10/21/16 10/21/16 06:10 06:10 06:10 WBC 7.9 D RBC 4.57 Hgb 13.8 Hct 41.7 MCV 91.2 MCHC 33.0 RDW 18.1 H Plt Count 308 MPV 8.4 Sodium 137 Potassium 4.4 Chloride 100 Carbon Dioxide 28 Anion Gap 9 BUN 13 D Creatinine 1.1 D Creat Clearance w eGFR > 60 POC Glucometer Random Glucose 190 H Calcium 9.0 Total Bilirubin 0.5 D AST 34 D ALT 41 D Alkaline Phosphatase 121 H Total Protein 7.5 Albumin 3.6 Urine Color Urine Appearance Urine pH Ur Specific [place] Urine Protein Urine Glucose (UA) Urine Ketones Urine Blood Urine Nitrite Urine Bilirubin Urine Urobilinogen Ur Leukocyte Esterase RPR Titer Nonreactive HIV 1&2 Antibody Screen HIV P24 Antigen 10/22/16 10/23/16 10/23/16 21:15 05:52 08:00 WBC RBC Hgb Hct MCV MCHC RDW Plt Count MPV Sodium Potassium Chloride Carbon Dioxide Anion Gap BUN Creatinine Creat Clearance w eGFR POC Glucometer 254 364 Random Glucose Calcium Total Bilirubin AST ALT Alkaline Phosphatase Total Protein Albumin Urine Color Straw Urine Appearance Clear Urine pH 7.0 Ur Specific [place] Urine Protein Negative Urine Glucose (UA) 3+ H Urine Ketones Negative Urine Blood Negative Urine Nitrite Negative Urine Bilirubin Negative Urine Urobilinogen Negative Ur Leukocyte Esterase Negative RPR Titer HIV 1&2 Antibody Screen HIV P24 Antigen labs noted Assessment: 10/23/16 14:20 Withdrawal sx. Plan: Continue detox
[2016-10-23] MEDS: chlordiazePOXIDE HCL 10 MG CAPSULE PO SCH ×2 (17:13→22:31)
[2016-10-23] MEDS: ALBUTEROL SO4 6.7 GM HFA INHALER IH PRN (17:14)
[2016-10-23] MEDS: THIAMINE HCL 100 MG TABLET (FP) PO SCH (22:30)
[2016-10-23] MEDS: INSULIN DETEMIR 100 UNITS/ML MDV SQ SCH (22:31)
[2016-10-23] MEDS: LIDOCAINE PATCH REMOVAL MC SCH (22:31)
[2016-10-23] MEDS: CYCLOBENZAPRINE HCL 10 MG TABLET (FP) PO PRN (22:31)
[2016-10-24] MEDS: chlordiazePOXIDE HCL 10 MG CAPSULE PO SCH ×2 (05:25→10:18)
[2016-10-24] MEDS ORDERED: INSULIN (NOVOLOG) ASPART 100 UNITS/ML 10ML VIAL ONE ×4 (05:46→21:38)
[2016-10-24] MEDS: metFORMIN HCL 500 MG TABLET (FP) PO SCH ×2 (06:43→17:08)
[2016-10-24] MEDS: INSULIN (NOVOLOG) ASPART 100 UNITS/ML 10ML VIAL SQ SCH ×4 (06:43→21:38)
[2016-10-24] MEDS ORDERED: METHADONE HCL 10 MG TABLET (FOR DETOX USE ONLY) PO SCH (10:00)
[2016-10-24] MEDS: LABETALOL HCL 100 MG TABLET (FP) PO SCH ×2 (10:18→22:39)
[2016-10-24] MEDS: PRENATAL VITAMINS W/ FOLIC ACID TABLET (FP) PO SCH (10:18)
[2016-10-24] MEDS: LISINOPRIL 20 MG TABLET (FP) PO SCH (10:19)
[2016-10-24] MEDS: predniSONE 20 MG TABLET (UD) PO SCH (10:19)
[2016-10-24] MEDS: LIDOCAINE 5% TOPICAL PATCH TP SCH (10:20)
[2016-10-24] MEDS: amLODIPine BESYLATE 10 MG TABLET (FP) PO SCH (11:02)
[2016-10-24] MEDS: ALBUTEROL SO4 6.7 GM HFA INHALER IH PRN (13:53)
--- NOTE | 2016-10-24 14:45 | PN ---
BHS Progress Note (SOAP) Subjective: Sweating,interrupted sleep,restless Objective: 10/24/16 14:44 Vital Signs - 8 hr 10/24/16 10/24/16 09:27 14:04 Temperature 97.5 F L 97.6 F Pulse Rate 93 H 95 H Respiratory 20 20 Rate Blood Pressure 175/97 174/93 Laboratory Last Values WBC 7.9 K/mm3 (4.0-10.0) D 10/21/16 06:10 RBC 4.57 M/mm3 (4.00-5.60) 10/21/16 06:10 Hgb 13.8 GM/dL (11.7-16.9) 10/21/16 06:10 Hct 41.7 % (35.4-49) 10/21/16 06:10 MCV 91.2 fl (80-96) 10/21/16 06:10 MCHC 33.0 g/dl (32.0-35.9) 10/21/16 06:10 RDW 18.1 % (11.9-15.9) H 10/21/16 06:10 Plt Count 308 K/MM3 (134-434) 10/21/16 06:10 MPV 8.4 fl (7.5-11.1) 10/21/16 06:10 Sodium 137 mmol/L (136-145) 10/21/16 06:10 Potassium 4.4 mmol/L (3.5-5.1) 10/21/16 06:10 Chloride 100 mmol/L (98-107) 10/21/16 06:10 Carbon Dioxide 28 mmol/L (21-32) 10/21/16 06:10 Anion Gap 9 (8-16) 10/21/16 06:10 BUN 13 mg/dL (7-18) D 10/21/16 06:10 Creatinine 1.1 mg/dL (0.7-1.3) D 10/21/16 06:10 Creat Clearance w eGFR > 60 (>60) 10/21/16 06:10 POC Glucometer 234 UNITS (()) 10/24/16 11:04 Random Glucose 190 mg/dL (74-106) H 10/21/16 06:10 Calcium 9.0 mg/dL (8.5-10.1) 10/21/16 06:10 Total Bilirubin 0.5 mg/dL (0.2-1.0) D 10/21/16 06:10 AST 34 U/L (15-37) D 10/21/16 06:10 ALT 41 U/L (12-78) D 10/21/16 06:10 Alkaline Phosphatase 121 U/L (45-117) H 10/21/16 06:10 Total Protein 7.5 g/dl (6.4-8.2) 10/21/16 06:10 Albumin 3.6 g/dl (3.4-5.0) 10/21/16 06:10 Urine Color Straw 10/23/16 08:00 Urine Appearance Clear 10/23/16 08:00 Urine pH 7.0 (5.0-8.0) 10/23/16 08:00 Ur Specific [place] 1.015 (1.005-1.025) 10/23/16 08:00 Urine Protein Negative (NEGATIVE) 10/23/16 08:00 Urine Glucose (UA) 3+ (NEGATIVE) H 10/23/16 08:00 Urine Ketones Negative (NEGATIVE) 10/23/16 08:00 Urine Blood Negative (NEGATIVE) 10/23/16 08:00 Urine Nitrite Negative (NEGATIVE) 10/23/16 08:00 Urine Bilirubin Negative (NEGATIVE) 10/23/16 08:00 Urine Urobilinogen Negative E.U./dl (0.2-1.0) 10/23/16 08:00 Ur Leukocyte Esterase Negative (NEGATIVE) 10/23/16 08:00 RPR Titer Nonreactive (NONREACTIVE) 10/21/16 06:10 HIV 1&2 Antibody Screen Negative 10/20/16 15:59 HIV P24 Antigen Negative 10/20/16 15:59 labs noted Assessment: 10/24/16 14:44 Withdrawal sx. Plan: Continue detox
[2016-10-24] MEDS: INSULIN DETEMIR 100 UNITS/ML MDV SQ SCH (21:39)
[2016-10-24] MEDS: THIAMINE HCL 100 MG TABLET (FP) PO SCH (22:39)
[2016-10-24] MEDS: LIDOCAINE PATCH REMOVAL MC SCH (22:40)
[2016-10-25] MEDS ORDERED: METHADONE HCL 5 MG TABLET (FOR DETOX USE ONLY) PO SCH (06:00)
[2016-10-25] MEDS: metFORMIN HCL 500 MG TABLET (FP) PO SCH (07:42)
[2016-10-25] MEDS: INSULIN (NOVOLOG) ASPART 100 UNITS/ML 10ML VIAL SQ SCH (07:43)
[2016-10-25 09:33] VITALS: BP 167/97; PULSE 90; TEMP 97.7
--- NOTE | 2016-10-25 12:38 | DS ---
[facility] Detox Discharge Summary Admission Date: 10/20/16 Discharge Date: 10/25/16 - History Present History: Alcohol Dependence, Cocaine Dependence, Opioid Dependence, Pcp Dependence Additional Comments: ADVISED PATIENT TO FOLLOW-UP WITH [facility] / REHAB MEDICAL PROVIDER AFTER DISCHARGE FROM DETOX FOR GENERAL MEDICAL ASSESSMENT. Pertinent Past History: Asthma, DM, HTN, Abdominal Hernia, COPD, Sleep Apnea. - Physical Exam Results Vital Signs: Vital Signs Temperature 97.7 F 10/25/16 09:32 Pulse Rate 90 10/25/16 09:32 Respiratory Rate 20 10/25/16 09:32 Blood Pressure 167/97 10/25/16 09:32 O2 Sat by Pulse Oximetry (%) Pertinent Admission Physical Exam Findings: WITHDRAWAL SYMPTOMS. Laboratory Tests 10/20/16 10/20/16 10/20/16 14:07 15:59 16:22 WBC RBC Hgb Hct MCV MCHC RDW Plt Count MPV Sodium Potassium Chloride Carbon Dioxide Anion Gap BUN Creatinine Creat Clearance w eGFR POC Glucometer 112 107 Random Glucose Calcium Total Bilirubin AST ALT Alkaline Phosphatase Total Protein Albumin Urine Color Urine Appearance Urine pH Ur Specific [place] Urine Protein Urine Glucose (UA) Urine Ketones Urine Blood Urine Nitrite Urine Bilirubin Urine Urobilinogen Ur Leukocyte Esterase RPR Titer HIV 1&2 Antibody Screen Negative HIV P24 Antigen Negative 10/20/16 10/20/16 10/21/16 20:23 20:40 05:32 WBC RBC Hgb Hct MCV MCHC RDW Plt Count MPV Sodium Potassium Chloride Carbon Dioxide Anion Gap BUN Creatinine Creat Clearance w eGFR POC Glucometer 217 135 Random Glucose Calcium Total Bilirubin AST ALT Alkaline Phosphatase Total Protein Albumin Urine Color Yellow Urine Appearance Clear Urine pH 6.0 Ur Specific [place] 1.020 Urine Protein Negative Urine Glucose (UA) 2+ H Urine Ketones Negative Urine Blood Negative Urine Nitrite Negative Urine Bilirubin Negative Urine Urobilinogen Negative Ur Leukocyte Esterase Negative RPR Titer HIV 1&2 Antibody Screen HIV P24 Antigen 10/21/16 10/21/16 10/21/16 06:10 06:10 06:10 WBC 7.9 D RBC 4.57 Hgb 13.8 Hct 41.7 MCV 91.2 MCHC 33.0 RDW 18.1 H Plt Count 308 MPV 8.4 Sodium 137 Potassium 4.4 Chloride 100 Carbon Dioxide 28 Anion Gap 9 BUN 13 D Creatinine 1.1 D Creat Clearance w eGFR > 60 POC Glucometer Random Glucose 190 H Calcium 9.0 Total Bilirubin 0.5 D AST 34 D ALT 41 D Alkaline Phosphatase 121 H Total Protein 7.5 Albumin 3.6 Urine Color Urine Appearance Urine pH Ur Specific [place] Urine Protein Urine Glucose (UA) Urine Ketones Urine Blood Urine Nitrite Urine Bilirubin Urine Urobilinogen Ur Leukocyte Esterase RPR Titer Nonreactive HIV 1&2 Antibody Screen HIV P24 Antigen 10/21/16 10/21/16 10/21/16 11:29 16:29 20:45 WBC RBC Hgb Hct MCV MCHC RDW Plt Count MPV Sodium Potassium Chloride Carbon Dioxide Anion Gap BUN Creatinine Creat Clearance w eGFR POC Glucometer 139 302 181 Random Glucose Calcium Total Bilirubin AST ALT Alkaline Phosphatase Total Protein Albumin Urine Color Urine Appearance Urine pH Ur Specific [place] Urine Protein Urine Glucose (UA) Urine Ketones Urine Blood Urine Nitrite Urine Bilirubin Urine Urobilinogen Ur Leukocyte Esterase RPR Titer HIV 1&2 Antibody Screen HIV P24 Antigen 10/22/16 10/22/16 10/22/16 05:31 11:31 16:13 WBC RBC Hgb Hct MCV MCHC RDW Plt Count MPV Sodium Potassium Chloride Carbon Dioxide Anion Gap BUN Creatinine Creat Clearance w eGFR POC Glucometer 218 199 226 Random Glucose Calcium Total Bilirubin AST ALT Alkaline Phosphatase Total Protein Albumin Urine Color Urine Appearance Urine pH Ur Specific [place] Urine Protein Urine Glucose (UA) Urine Ketones Urine Blood Urine Nitrite Urine Bilirubin Urine Urobilinogen Ur Leukocyte Esterase RPR Titer HIV 1&2 Antibody Screen HIV P24 Antigen 10/22/16 10/23/16 10/23/16 21:15 05:52 08:00 WBC RBC Hgb Hct MCV MCHC RDW Plt Count MPV Sodium Potassium Chloride Carbon Dioxide Anion Gap BUN Creatinine Creat Clearance w eGFR POC Glucometer 254 364 Random Glucose Calcium Total Bilirubin AST ALT Alkaline Phosphatase Total Protein Albumin Urine Color Straw Urine Appearance Clear Urine pH 7.0 Ur Specific [place] 1.015 Urine Protein Negative Urine Glucose (UA) 3+ H Urine Ketones Negative Urine Blood Negative Urine Nitrite Negative Urine Bilirubin Negative Urine Urobilinogen Negative Ur Leukocyte Esterase Negative RPR Titer HIV 1&2 Antibody Screen HIV P24 Antigen 10/23/16 10/23/16 10/23/16 11:24 16:18 21:07 WBC RBC Hgb Hct MCV MCHC RDW Plt Count MPV Sodium Potassium Chloride Carbon Dioxide Anion Gap BUN Creatinine Creat Clearance w eGFR POC Glucometer 391 394 279 Random Glucose Calcium Total Bilirubin AST ALT Alkaline Phosphatase Total Protein Albumin Urine Color Urine Appearance Urine pH Ur Specific [place] Urine Protein Urine Glucose (UA) Urine Ketones Urine Blood Urine Nitrite Urine Bilirubin Urine Urobilinogen Ur Leukocyte Esterase RPR Titer HIV 1&2 Antibody Screen HIV P24 Antigen 10/24/16 10/24/16 10/24/16 05:25 11:04 16:25 WBC RBC Hgb Hct MCV MCHC RDW Plt Count MPV Sodium Potassium Chloride Carbon Dioxide Anion Gap BUN Creatinine Creat Clearance w eGFR POC Glucometer 254 234 332 Random Glucose Calcium Total Bilirubin AST ALT Alkaline Phosphatase Total Protein Albumin Urine Color Urine Appearance Urine pH Ur Specific [place] Urine Protein Urine Glucose (UA) Urine Ketones Urine Blood Urine Nitrite Urine Bilirubin Urine Urobilinogen Ur Leukocyte Esterase RPR Titer HIV 1&2 Antibody Screen HIV P24 Antigen 10/24/16 10/25/16 21:31 05:28 WBC RBC Hgb Hct MCV MCHC RDW Plt Count MPV Sodium Potassium Chloride Carbon Dioxide Anion Gap BUN Creatinine Creat Clearance w eGFR POC Glucometer 184 104 Random Glucose Calcium Total Bilirubin AST ALT Alkaline Phosphatase Total Protein Albumin Urine Color Urine Appearance Urine pH Ur Specific [place] Urine Protein Urine Glucose (UA) Urine Ketones Urine Blood Urine Nitrite Urine Bilirubin Urine Urobilinogen Ur Leukocyte Esterase RPR Titer HIV 1&2 Antibody Screen HIV P24 Antigen LABS NOTED. - Treatment Hospital Course: Detox Protocol Followed, Detoxed Safely, Responded well, Discharged Condition Good, Rehab Referral Accepted Patient has Accepted a Rehab Referral to: [facility]. - Medication Discharge Medications: Ambulatory Orders Insulin (Novolog) [Novolog Flexpen -] 0 units SQ ACHS 07/12/16 Insulin Glargine,Hum.rec.anlog [Lantus (10mL VIAL) -] 10 units SQ HS 07/12/16 Amlodipine Besylate 10 mg PO DAILY 07/13/16 Lisinopril 40 mg PO ASDIR 07/13/16 Albuterol 0.083% Nebulizer Bryanna [Ventolin 0.083% Nebulizer Soln -] 1 amp NEB Q4HPO amp 07/14/16 Labetalol HCl [Normodyne -] 100 mg PO BID tablet 07/14/16 Prednisone [Deltasone -] 40 mg PO DAILY #8 tablet 07/18/16 Metformin HCl [Glucophage -] 500 mg PO BID 10/20/16 - Diagnosis (1) Alcohol dependence with uncomplicated withdrawal Status: Acute (2) Alcohol-induced mood disorder Status: Acute (3) Cocaine dependence Status: Acute Qualifiers: Substance use status: uncomplicated Qualified Code(s): F14.20 - Cocaine dependence, uncomplicated (4) Opioid dependence with withdrawal Status: Acute (5) PCP dependence Status: Acute (6) Substance induced mood disorder Status: Acute (7) Abdominal hernia Status: Chronic Qualifiers: Hernia type: unspecified Obstruction and gangrene presence: without obstruction or gangrene Recurrence: not specified as recurrent Qualified Code(s): K46.9 - Unspecified abdominal hernia without obstruction or gangrene; K45 - Other abdominal hernia (8) Asthma Status: Chronic Qualifiers: Asthma severity: mild intermittent Asthma complication type: uncomplicated Qualified Code(s): J45.20 - Mild intermittent asthma, uncomplicated (9) COPD exacerbation Status: Chronic (10) Diabetes mellitus Status: Chronic Qualifiers: Diabetes mellitus type: type 2 Diabetes mellitus complication status: without complication Diabetes mellitus group home insulin use: with group home use Qualified Code(s): E11.9 - Type 2 diabetes mellitus without complications (11) HTN (hypertension) Status: Chronic Qualifiers: Hypertension type: essential hypertension Qualified Code(s): I10 - Essential (primary) hypertension (12) IDDM (insulin dependent diabetes mellitus) Status: Chronic (13) Nicotine dependence Status: Chronic Qualifiers: Nicotine product type: cigarettes Substance use status: uncomplicated Qualified Code(s): F17.210 - Nicotine dependence, cigarettes, uncomplicated (14) Sleep apnea syndrome Status: Chronic Qualifiers: Sleep apnea type: unspecified type Qualified Code(s): G47.30 - Sleep apnea, unspecified - AMA Did Patient Leave Against Medical Advice: No
== END 2016-10-25 10:36 | disposition home or self-care (01) | DRG 773 ==
LOC: YASAS 11:11 → Y3N 14:33
PROVIDERS: ADMIT Internal Medicine; ATTEND Internal Medicine
PROC: HZ2ZZZZ Detoxification Services for Substance Abuse Treatment (ICD-10-PCS; principal; 2016-10-20)
DX: F11.23 Opioid dependence with withdrawal (principal); F10.230 Alcohol dependence with withdrawal, uncomplicated; F10.24 Alcohol dependence with alcohol-induced mood disorder; F14.20 Cocaine dependence, uncomplicated; F16.20 Hallucinogen dependence, uncomplicated; F17.210 Nicotine dependence, cigarettes, uncomplicated; F19.24 Other psychoactive substance dependence with psychoactive substance-induced mood disorder; J45.909 Unspecified asthma, uncomplicated; J44.1 Chronic obstructive pulmonary disease with (acute) exacerbation; E11.9 Type 2 diabetes mellitus without complications; K46.9 Unspecified abdominal hernia without obstruction or gangrene; I10 Essential (primary) hypertension; G47.30 Sleep apnea, unspecified; R81 Glycosuria; E78.5 Hyperlipidemia, unspecified; G62.9 Polyneuropathy, unspecified; Z79.4 Long term (current) use of insulin; Z79.84 Long term (current) use of oral hypoglycemic drugs
CPT/HCPCS: 36415; 80053; 81003; 85027; 86593; 87389; 93005; 93010

== ENCOUNTER 2016-11-24 10:16 | Inpatient (IN) | payer OTHER ==
[2016-11-24 14:39] VITALS: BMI 37.6
--- NOTE | 2016-11-24 18:11 | HP ---
COWS - Scale Resting Pulse: 2= [place] 101-120 Sweatin=Flushed/Facial Moisture Restless Observation: 3= Extraneous Movement Pupil Size: 1= Pupils >than Normal Bone or Joint Aches: 2= Severe Diffuse Aches Runny Nose/ Eye Tearin= Runny Nose/Eyes GI Upset > 30mins: 2= Nausea/Diarrhea Tremor Observation: 2= Slight Tremor Visible Yawning Observation: 1= 1-2x During Session Anxiety or Irritability: 1=Feels Anxious/Irritable Goose Flesh Skin: 0=Smooth Skin COWS Score: 18 CIWA Score - CIWA Score Nausea/Vomitin Muscle Tremors: 3 Anxiety: 3 Agitation: 2 Paroxysmal Sweats: 2 Orientation: 0-Oriented Tacttile Disturbances: 2-Mild Itch/Numbness/Burn Auditory Disturbances: 0-None Visual Disturbances: 0-None Headache: 2-Mild CIWA-Ar Total Score: 16 Admission [facility] Chief Complaint: WITHDRAWAL SYMPTOMS Allergies/Adverse Reactions: Allergies Allergy/AdvReac Type Severity Reaction Status Date / Time almond oil [[place] Oil] Allergy Unknown Allergy to Verified 11/24/16 16:43 Almonds No Known Drug Allergies Allergy Verified 11/24/16 16:43 ALMONDS Allergy Severe Rash Uncoded 11/24/16 16:43 History of Present Illness: 51 y.o. man with a history of alcohol and drug dependence is here seeking detox. He was last here for detox in 10/25/16. Reports having a 4 year period of sobriety. Exam Limitations: No Limitations - Ebola screening Have you traveled outside of the country in the last 21 days: No Have you had contact with anyone from an Ebola affected area: No Have you been sick,other than usual withdrawal symptoms: No Do you have a fever: No - Review of Systems Constitutional: Chills, Diaphoresis, Loss of Appetite, Night Sweats, Changes in sleep, Unintentional Wgt. Loss EENT: reports: No Symptoms Reported Respiratory: reports: Shortness of Breath Cardiac: reports: No Symptoms Reported GI: reports: Diarrhea : reports: No Symptoms Reported Musculoskeletal: reports: Back Pain Integumentary: reports: No Symptoms Reported Neuro: reports: Headache, Numbness, Tingling, Tremors Endocrine: reports: No Symptoms Reported Hematology: reports: No Symptoms Reported Psychiatric: reports: Judgement Intact, Mood/Affect Appropiate, Orientated x3 Other Systems: Reviewed and Negative Patient History - Patient Medical History Hx Anemia: No Hx Asthma: Yes (on albuterol inhaler) Hx Chronic Obstructive Pulmonary Disease (COPD): No Hx Cancer: No Hx Cardiac Disorders: No Hx Congestive Heart Failure: No Hx Hypertension: Yes Hx Hypercholesterolemia: No Hx Pacemaker: No HX Cerebrovascular Accident: No Hx Seizures: No Hx Dementia: No Hx Diabetes: Yes (Type I) Hx Gastrointestinal Disorders: Yes (hernia incional ) Hx Liver Disease: No Hx Genitourinary Disorders: No Hx Sexually Transmitted Disorders: Yes (Syphillis-treated) Hx Renal Disease (ESRD): No Hx Thyroid Disease: No Hx Human Immunodeficiency Virus (HIV): No (negative) Hx Hepatitis C: No Hx Depression: No Hx Suicide Attempt: No Hx Bipolar Disorder: No Hx Schizophrenia: No - Patient Surgical History Past Surgical History: Yes Hx Neurologic Surgery: No Hx Cataract Extraction: No Hx Cardiac Surgery: No Hx Lung Surgery: No Hx Breast Surgery: No Hx Breast Biopsy: No Hx Abdominal Surgery: Yes (colostomy reversal 02/12/15, hernia) Hx Appendectomy: No Hx Cholecystectomy: No Hx Genitourinary Surgery: No Hx Section: No Hx Orthopedic Surgery: Yes (left rotator cuff surgery 2 years ago) Other Surgical History: UMBILICAL HERNIA REPAIR Anesthesia Reaction: No - PPD History Previous Implant?: Yes Documented Results: Negative w/proof Date: 08/29/15 Results: 0 mm PPD to be Administered?: No - Reproductive History Patient is a Female of Child Bearing Age (11 -55 yrs old): No - Smoking Cessation Smoking history: Former smoker Have you smoked in the past 12 months: No Aproximately how many cigarettes per day: 2 Cigars Per Day: 0 Hx Chewing Tobacco Use: No Initiated information on smoking cessation: No 'Breaking Loose' booklet given: 11/24/16 - Substance & Tx. History Hx Alcohol Use: Yes Hx Substance Use: Yes Substance Use Type: Alcohol, Cocaine, Heroin - Substances Abused Alcohol Route: Oral Frequency: Daily Amount used: LIQUOR- 4 PINTS Age of first use: 48 Date of Last Use: 11/24/16 Heroin Route: Inhalation Frequency: Daily Amount used: 6 BAGS Age of first use: 49 Date of Last Use: 11/24/16 Cocaine Route: Inhalation Frequency: Daily Amount used: 5 BAGS Age of first use: 49 Date of Last Use: 11/24/16 Family Disease History - Family Disease History Family Disease History: Diabetes: Mother, [place]: Father (), Respiratory: Father Admission Physical Exam [facility] - Vital Signs Vital Signs: Vital Signs - 24 hr 11/24/16 14:35 Temperature 97.8 F Pulse Rate 101 H Respiratory 20 Rate Blood Pressure 158/108 - Physical General Appearance: Yes: No Apparent Distress, Nourished, Appropriately Dressed HEENTM: Yes: Hearing grossly Normal, Normal ENT Inspection, Normocephalic, Normal Voice Respiratory: Yes: Wheezing Neck: Yes: No masses,lesions,Nodules, Trachea in good position Breast: Yes: Breast Exam Deferred Cardiology: Yes: Tachycardia Abdominal: Yes: Normal Bowel Sounds, Protuberent (d/t hernia) Back: Yes: Other (no complaints reported) Musculoskeletal: Yes: full range of Motion, Gait Steady, Pelvis Stable Extremities: Yes: Normal Capillary Refill, Normal Inspection, Normal Range of Motion Neurological: Yes: veterans service representative II-XII NML intact, Fully Oriented, Alert, Normal Mood/ Affect, Normal Response Integumentary: Yes: Normal Color, Dry, Warm Lymphatic: Yes: Within Normal Limits - Diagnostic (1) Obesity Current Visit: Yes Status: Chronic Qualifiers: Obesity type: unspecified obesity type (2) Alcohol dependence with uncomplicated withdrawal Current Visit: Yes Status: Chronic (3) Cocaine dependence Current Visit: Yes Status: Chronic Qualifiers: Substance use status: uncomplicated Qualified Code(s): F14.20 - Cocaine dependence, uncomplicated (4) Opioid dependence with withdrawal Current Visit: Yes Status: Chronic (5) Abdominal hernia Current Visit: Yes Status: Chronic Qualifiers: Hernia type: unspecified Obstruction and gangrene presence: without obstruction or gangrene Recurrence: not specified as recurrent Qualified Code(s): K46.9 - Unspecified abdominal hernia without obstruction or gangrene; K45 - Other abdominal hernia (6) Asthma Current Visit: Yes Status: Chronic Qualifiers: Asthma severity: mild intermittent Asthma complication type: uncomplicated Qualified Code(s): J45.20 - Mild intermittent asthma, uncomplicated (7) Essential hypertension Current Visit: Yes Status: Chronic (8) IDDM (insulin dependent diabetes mellitus) Current Visit: Yes Status: Chronic (9) Nicotine dependence Current Visit: No Status: Chronic Qualifiers: Nicotine product type: cigarettes Substance use status: uncomplicated Qualified Code(s): F17.210 - Nicotine dependence, cigarettes, uncomplicated Cleared for Admission [facility] - Detox or Rehab [facility] Level of Care: Medically Managed Detox Regimen/Protocol: Methadone/Librium [facility] Breath Alcohol Content Breath Alcohol Content: 0.026 Urine Drug Screen - Results Drug Screen Negative: No Urine Drug Screen Results: ANA-Cocaine, OPI-Opiates, BZO-Benzodiazepines
[2016-11-24] MEDS ORDERED: MAGNESIUM CITRATE 300 ML BOTTLE PO PRN (18:24)
[2016-11-24] MEDS ORDERED: MENTHOL/PHENOL 1 EACH UD MM PRN (18:24)
[2016-11-24] MEDS ORDERED: P-EPHED 60MG/TRIPROLIDI 2.5MG TABLET PO PRN (18:24)
[2016-11-24] MEDS ORDERED: chlordiazePOXIDE HCL 25 MG CAPSULE PO PRN (18:24)
[2016-11-24] MEDS ORDERED: guaiFENesin/D-METHORPHAN HB 10 ML UNIT-DOSE CUPS PO PRN (18:24)
[2016-11-24] MEDS ORDERED: ACETAMINOPHEN 325 MG TABLET (FP) PO PRN (18:24)
[2016-11-24] MEDS ORDERED: MAG HYDROX/AL HYDROX/SIMETH 30 ML UNIT-DOSE CUP PO PRN (18:24)
[2016-11-24] MEDS ORDERED: NICOTINE POLACRILEX 2 MG GUM BC PRN (18:24)
[2016-11-24] MEDS ORDERED: diphenhydrAMINE HCL 50 MG CAPSULE PO PRN (18:24)
[2016-11-24] MEDS ORDERED: LOPERAMIDE HCL 2 MG CAPSULE PO PRN (18:24)
[2016-11-24] MEDS ORDERED: MAGNESIUM HYDROX 2400MG/30ML ORAL SUSPENSION 30 ML CUP PO PRN (18:24)
[2016-11-24] MEDS ORDERED: METHADONE HCL 10 MG TABLET (FOR DETOX USE ONLY) PO ONE ×2 (19:00→23:00)
[2016-11-24] MEDS ORDERED: chlordiazePOXIDE HCL 25 MG CAPSULE PO ONE (19:00)
[2016-11-24] MEDS ORDERED: ALBUTEROL SO4 2.5/IPRATROPIUM 0.5 INH SOL 3 ML VIAL.NEB. NEB PRN (19:05)
[2016-11-24] MEDS: amLODIPine BESYLATE 10 MG TABLET (FP) PO SCH (19:17)
[2016-11-24] MEDS: INSULIN SLIDING SCALE (NOVOLOG) 1 VIAL SQ SCH (19:19)
[2016-11-24] MEDS ORDERED: ALBUTEROL SO4 0.083% IH SOL 2.5 MG/3 ML VIAL.NEB. NEB PRN (22:00)
[2016-11-24] MEDS: chlordiazePOXIDE HCL 25 MG CAPSULE PO SCH (22:27)
[2016-11-24] MEDS: THIAMINE HCL 100 MG TABLET (FP) PO SCH (22:27)
[2016-11-24] MEDS: CYCLOBENZAPRINE HCL 10 MG TABLET (FP) PO PRN (22:27)
[2016-11-24] MEDS: INSULIN DETEMIR 100 UNITS/ML MDV SQ SCH (22:28)
[2016-11-24] MEDS: LABETALOL HCL 100 MG TABLET (FP) PO SCH (22:30)
[2016-11-24 22:47] LABS: URINE APPEARANCE CLEAR; URINE BILIRUBIN NEGATIVE (NEGATIVE); URINE BLOOD NEGATIVE (NEGATIVE); URINE COLOR YELLOW; URINE GLUCOSE (UA) 2+ (NEGATIVE); URINE KETONE NEGATIVE (NEGATIVE); URINE LEUK ESTERASE NEGATIVE (NEGATIVE); URINE NITRITE NEGATIVE (NEGATIVE)
[2016-11-24 22:50] LABS: URINE PROTEIN 1+ (NEGATIVE)
[2016-11-24 23:31] LABS: CALCIUM OXALATE CRYSTALS FEW /hpf (NONE SEEN); URINE HYALINE CAST 1 /lpf; URINE MUCUS RARE; URINE RBC 1 /hpf (0-3); URINE WBC 2 /hpf (3-5)
[2016-11-25] MEDS: chlordiazePOXIDE HCL 25 MG CAPSULE PO SCH ×4 (05:24→22:47)
[2016-11-25] MEDS ORDERED: INSULIN (NOVOLOG) ASPART 100 UNITS/ML 10ML VIAL ONE ×4 (07:37→16:58)
[2016-11-25] MEDS: metFORMIN HCL 500 MG TABLET (FP) PO SCH ×2 (07:47→17:36)
[2016-11-25] MEDS: INSULIN SLIDING SCALE (NOVOLOG) 1 VIAL SQ SCH ×3 (07:48→16:45)
[2016-11-25] MEDS ORDERED: METHADONE HCL 10 MG TABLET (FOR DETOX USE ONLY) PO SCH (10:00)
[2016-11-25 10:59] LABS: ANION GAP 5 (8-16); CO2 30 mmol/L (21-32)
[2016-11-25 11:04] LABS: MCH 30.3 pg (25.7-33.7); MCHC 32.3 g/dl (32.0-35.9); MEAN CELL VOLUME 93.7 fl (80-96); MEAN PLT VOLUME 8.6 fl (7.5-11.1); PLATELET COUNT 303 K/MM3 (134-434); WHITE BLOOD COUNT 9.5 K/mm3 (4.0-10.0)
[2016-11-25 11:05] LABS: ALK PHOS 129 U/L (45-117); BILIRUBIN,TOTAL 0.3 mg/dL (0.2-1.0); CREATININE 0.9 mg/dL (0.7-1.3); GLUCOSE,RANDOM 144 mg/dL (74-106); SGOT/AST 20 U/L (15-37); SGPT/ALT 43 U/L (12-78); TOT PROT 6.6 g/dl (6.4-8.2)
[2016-11-25] MEDS: PRENATAL VITAMINS W/ FOLIC ACID TABLET (FP) PO SCH (11:08)
[2016-11-25] MEDS: NICOTINE 14 MG/24 HOURS TOPICAL PATCH TD SCH (11:08)
[2016-11-25] MEDS: amLODIPine BESYLATE 10 MG TABLET (FP) PO SCH (11:08)
[2016-11-25] MEDS: CYCLOBENZAPRINE HCL 10 MG TABLET (FP) PO PRN (11:19)
--- NOTE | 2016-11-25 11:20 | PN ---
[facility] CIWA - CIWA Score Nausea/Vomitin Muscle Tremors: 3 Anxiety: 3 Agitation: 2 Paroxysmal Sweats: 1-Minimal Palms Moist Orientation: 0-Oriented Tacttile Disturbances: 1-Very Mild Itch/Numbness Auditory Disturbances: 1-Very Mild Visual Disturbances: 1-Very Mild Sensitivity Headache: 2-Mild CIWA-Ar Total Score: 17 [facility] COWS - Scale Resting Pulse: 1= [place] 81-100 Sweatin= Chills/Flushing Restless Observation: 3= Extraneous Movement Pupil Size: 1= Pupils >than Normal Bone or Joint Aches: 2= Severe Diffuse Aches Runny Nose/ Eye Tearin= Runny Nose/Eyes GI Upset > 30mins: 2= Nausea/Diarrhea Tremor Observation of Outstretched Hands: 2= Slight Tremor Visible Yawning Observation: 1= 1-2x During Session Anxiety or Irritability: 2=Irritable/Anxious Goose Flesh Skin: 0=Smooth Skin COWS Score: 17 [facility] Progress Note (SOAP) Subjective: alert,irritable,anxious,interrupted sleep,tremor,pain in the body and back Objective: 11/25/16 11:18 Vital Signs Temperature 97.9 F 11/25/16 09:44 Pulse Rate 102 H 11/25/16 09:44 Respiratory Rate 20 11/25/16 09:44 Blood Pressure 157/91 11/25/16 09:44 O2 Sat by Pulse Oximetry (%) ekg sinus tachycardia 104/min no chest pain,no sob,no dizziness Laboratory Last Values Sodium 140 mmol/L (136-145) 11/25/16 07:30 Potassium 3.7 mmol/L (3.5-5.1) 11/25/16 07:30 Chloride 105 mmol/L (98-107) 11/25/16 07:30 Carbon Dioxide 30 mmol/L (21-32) 11/25/16 07:30 Anion Gap 5 (8-16) L 11/25/16 07:30 BUN 15 mg/dL (7-18) 11/25/16 07:30 Creatinine 0.9 mg/dL (0.7-1.3) 11/25/16 07:30 Creat Clearance w eGFR > 60 (>60) 11/25/16 07:30 POC Glucometer 108 UNITS (()) 11/25/16 05:23 Random Glucose 144 mg/dL (74-106) H D 11/25/16 07:30 Calcium 9.0 mg/dL (8.5-10.1) 11/25/16 07:30 Total Bilirubin 0.3 mg/dL (0.2-1.0) D 11/25/16 07:30 AST 20 U/L (15-37) D 11/25/16 07:30 ALT 43 U/L (12-78) 11/25/16 07:30 Alkaline Phosphatase 129 U/L (45-117) H 11/25/16 07:30 Total Protein 6.6 g/dl (6.4-8.2) 11/25/16 07:30 Albumin 3.0 g/dl (3.4-5.0) L 11/25/16 07:30 Urine Color Yellow 11/24/16 20:30 Urine Appearance Clear 11/24/16 20:30 Urine pH 6.0 (5.0-8.0) 11/24/16 20:30 Urine Protein 1+ (NEGATIVE) H 11/24/16 20:30 Urine Glucose (UA) 2+ (NEGATIVE) H 11/24/16 20:30 Urine Ketones Negative (NEGATIVE) 11/24/16 20:30 Urine Blood Negative (NEGATIVE) 11/24/16 20:30 Urine Nitrite Negative (NEGATIVE) 11/24/16 20:30 Urine Bilirubin Negative (NEGATIVE) 11/24/16 20:30 Urine Urobilinogen 2.0 mg/dL (0.2-1.0) 11/24/16 20:30 Ur Leukocyte Esterase Negative (NEGATIVE) 11/24/16 20:30 Urine RBC 1 /hpf (0-3) 11/24/16 20:30 Urine WBC 2 /hpf (3-5) 11/24/16 20:30 Ur Epithelial Cells Rare /hpf (FEW) 11/24/16 20:30 Calcium Oxalate Crystal Few /hpf (NONE SEEN) 11/24/16 20:30 Hyaline Casts 1 /lpf 11/24/16 20:30 Urine Mucus Rare 11/24/16 20:30 labs pending Assessment: 11/25/16 11:19 withdrawal symptom Plan: continue detox
[2016-11-25] MEDS: LABETALOL HCL 100 MG TABLET (FP) PO SCH ×2 (11:46→22:47)
[2016-11-25] MEDS: IBUPROFEN 400 MG TABLET (FP) PO PRN (12:57)
--- NOTE | 2016-11-25 15:40 | CONSULT ---
[facility] Psychiatric Consult - Data Date of interview: 11/25/16 Admission source: [facility] Identifying data: This is another admission to [facility] for this 51 y/o AA male seeking detox treatment on for heroin,alcohol and cocaine dependence.Patient is single,father of two (in this interview),homeless, unemployed and supported on SSI benefits (self-report). Substance Abuse History: Patient is an evasive and versatile historian.Mr Loera keeps on modifying his personal profile through different interviews.He indicated to this documentation writer that he started all drugs/alcohol at age 31 (different account offered at [facility]).Abuses heroin,cocaine and alcohol.Last use : yesterday. Medical History: Incisional hernia,COPD,hypercholesterolemia,bronchial asthma, sleep apnea,hypertension,diabetes mellitus,syphilis (treated),obesity, neuropathy and a history of umbilical herniorraphy.Noted report of past reversal of colostomy (2014) for diverticulitis and orthosurgery for rotator cuff repair two years ago (left shoulder). Psychiatric History: Patient denies. Physical/Sexual Abuse/Trauma History: Patient denies. Additional Comment: Urine Drug Screen Results: ANA-Cocaine, OPI-Opiates, BZO- Benzodiazepines.Noted. Mental Status Exam - Mental Status Exam Alert and Oriented to: Time, Place, Person Cognitive Function: Good Patient Appearance: Well Groomed Mood: Hopeful, Euthymic Affect: Appropriate, Normal Range Patient Behavior: Fatigued, Appropriate, Cooperative Speech Pattern: Clear Voice Loudness: Normal Thought Process: Intact, Goal Oriented Thought Disorder: Not Present Hallucinations: Denies Suicidal Ideation: Denies Homicidal Ideation: Denies Insight/Judgement: Poor Sleep: Poorly, Difficulty falling asleep Appetite: Good Muscle strength/Tone: Normal Gait/Station: Normal Psychiatric Findings - Problem List ([place] 1, 2,3) (1) Alcohol dependence with uncomplicated withdrawal Current Visit: Yes Status: Chronic (2) Cocaine dependence Current Visit: Yes Status: Chronic Qualifiers: Substance use status: uncomplicated Qualified Code(s): F14.20 - Cocaine dependence, uncomplicated (3) Opioid dependence with withdrawal Current Visit: Yes Status: Chronic (4) Nicotine dependence Current Visit: Yes Status: Acute Qualifiers: Nicotine product type: cigarettes Substance use status: uncomplicated Qualified Code(s): F17.210 - Nicotine dependence, cigarettes, uncomplicated (5) Substance induced mood disorder Current Visit: Yes Status: Acute (6) Diabetes mellitus Current Visit: Yes Status: Chronic Qualifiers: Diabetes mellitus type: type 2 Diabetes mellitus complication status: without complication Diabetes mellitus skilled nursing insulin use: with middle or intermediate school principal use Qualified Code(s): E11.9 - Type 2 diabetes mellitus without complications (7) HTN (hypertension) Current Visit: Yes Status: Chronic Qualifiers: Hypertension type: essential hypertension Qualified Code(s): I10 - Essential (primary) hypertension (8) Hyperlipidemia Current Visit: Yes Status: Chronic Qualifiers: Hyperlipidemia type: unspecified Qualified Code(s): E78.5 - Hyperlipidemia, unspecified (9) Abdominal hernia Current Visit: Yes Status: Chronic Qualifiers: Hernia type: unspecified Obstruction and gangrene presence: without obstruction or gangrene Recurrence: not specified as recurrent Qualified Code(s): K46.9 - Unspecified abdominal hernia without obstruction or gangrene; K45 - Other abdominal hernia (10) Obesity Current Visit: Yes Status: Chronic Qualifiers: Obesity type: unspecified obesity type (11) Asthma Current Visit: Yes Status: Chronic Qualifiers: Asthma severity: mild intermittent Asthma complication type: uncomplicated Qualified Code(s): J45.20 - Mild intermittent asthma, uncomplicated (12) Insomnia Current Visit: Yes Status: Acute - Initial Treatment Plan Initial Treatment Plan: Psychoeducation.Sleep hygiene discussed in this encounter.Detoxification in progress.Insomnia is addressed with benadryl 50 mg po hs .Side effects/benefits discussed with patient.He agrees with this careplan.Observation.
[2016-11-25] MEDS: hydrOXYzine PAMOATE 50 MG CAPSULE (FP) PO PRN (16:01)
[2016-11-25] MEDS: THIAMINE HCL 100 MG TABLET (FP) PO SCH (22:47)
[2016-11-25] MEDS: INSULIN DETEMIR 100 UNITS/ML MDV SQ SCH (22:48)
[2016-11-25] MEDS ORDERED: INSULIN DETEMIR 100 UNITS/ML MDV SQ ONE (23:04)
[2016-11-26] MEDS: chlordiazePOXIDE HCL 25 MG CAPSULE PO SCH ×3 (06:03→17:40)
[2016-11-26] MEDS: metFORMIN HCL 500 MG TABLET (FP) PO SCH ×2 (07:42→17:30)
[2016-11-26] MEDS: INSULIN SLIDING SCALE (NOVOLOG) 1 VIAL SQ SCH ×3 (07:43→17:30)
--- NOTE | 2016-11-26 10:13 | PN ---
S CIWA - CIWA Score Nausea/Vomitin Muscle Tremors: 3 Anxiety: 2 Agitation: 2 Paroxysmal Sweats: 1-Minimal Palms Moist Orientation: 0-Oriented Tacttile Disturbances: 1-Very Mild Itch/Numbness Auditory Disturbances: 1-Very Mild Visual Disturbances: 1-Very Mild Sensitivity Headache: 2-Mild CIWA-Ar Total Score: 16 BHS COWS - Scale Resting Pulse: 1= [place] 81-100 Sweatin= Chills/Flushing Restless Observation: 3= Extraneous Movement Pupil Size: 1= Pupils >than Normal Bone or Joint Aches: 2= Severe Diffuse Aches Runny Nose/ Eye Tearin= Runny Nose/Eyes GI Upset > 30mins: 2= Nausea/Diarrhea Tremor Observation of Outstretched Hands: 2= Slight Tremor Visible Yawning Observation: 1= 1-2x During Session Anxiety or Irritability: 2=Irritable/Anxious Goose Flesh Skin: 0=Smooth Skin COWS Score: 17 S Progress Note (SOAP) Subjective: ALERT,IRRITABLE,ANXIOUS,INTERRUPTED SLEEP,TREMOR,PAIN IN THE BODY AND BACK Objective: 11/26/16 10:10 Vital Signs Temperature 98.1 F 11/26/16 09:53 Pulse Rate 86 11/26/16 09:53 Respiratory Rate 20 11/26/16 09:53 Blood Pressure 170/106 11/26/16 09:53 O2 Sat by Pulse Oximetry (%) Laboratory Last Values WBC 9.5 K/mm3 (4.0-10.0) 11/25/16 07:30 RBC 4.62 M/mm3 (4.00-5.60) 11/25/16 07:30 Hgb 14.0 GM/dL (11.7-16.9) 11/25/16 07:30 Hct 43.3 % (35.4-49) 11/25/16 07:30 MCV 93.7 fl (80-96) 11/25/16 07:30 MCH 30.3 pg (25.7-33.7) 11/25/16 07:30 MCHC 32.3 g/dl (32.0-35.9) 11/25/16 07:30 RDW 16.0 % (11.9-15.9) H D 11/25/16 07:30 Plt Count 303 K/MM3 (134-434) 11/25/16 07:30 MPV 8.6 fl (7.5-11.1) 11/25/16 07:30 Sodium 140 mmol/L (136-145) 11/25/16 07:30 Potassium 3.7 mmol/L (3.5-5.1) 11/25/16 07:30 Chloride 105 mmol/L (98-107) 11/25/16 07:30 Carbon Dioxide 30 mmol/L (21-32) 11/25/16 07:30 Anion Gap 5 (8-16) L 11/25/16 07:30 BUN 15 mg/dL (7-18) 11/25/16 07:30 Creatinine 0.9 mg/dL (0.7-1.3) 11/25/16 07:30 Creat Clearance w eGFR > 60 (>60) 11/25/16 07:30 POC Glucometer 117 UNITS (()) 11/26/16 06:03 Random Glucose 144 mg/dL (74-106) H D 11/25/16 07:30 Calcium 9.0 mg/dL (8.5-10.1) 11/25/16 07:30 Total Bilirubin 0.3 mg/dL (0.2-1.0) D 11/25/16 07:30 AST 20 U/L (15-37) D 11/25/16 07:30 ALT 43 U/L (12-78) 11/25/16 07:30 Alkaline Phosphatase 129 U/L (45-117) H 11/25/16 07:30 Total Protein 6.6 g/dl (6.4-8.2) 11/25/16 07:30 Albumin 3.0 g/dl (3.4-5.0) L 11/25/16 07:30 Urine Color Yellow 11/24/16 20:30 Urine Appearance Clear 11/24/16 20:30 Urine pH 6.0 (5.0-8.0) 11/24/16 20:30 Ur Specific [place] 1.020 (1.005-1.025) 11/24/16 20:30 Urine Protein 1+ (NEGATIVE) H 11/24/16 20:30 Urine Glucose (UA) 2+ (NEGATIVE) H 11/24/16 20:30 Urine Ketones Negative (NEGATIVE) 11/24/16 20:30 Urine Blood Negative (NEGATIVE) 11/24/16 20:30 Urine Nitrite Negative (NEGATIVE) 11/24/16 20:30 Urine Bilirubin Negative (NEGATIVE) 11/24/16 20:30 Urine Urobilinogen 2.0 mg/dL (0.2-1.0) 11/24/16 20:30 Ur Leukocyte Esterase Negative (NEGATIVE) 11/24/16 20:30 Urine RBC 1 /hpf (0-3) 11/24/16 20:30 Urine WBC 2 /hpf (3-5) 11/24/16 20:30 Ur Epithelial Cells Rare /hpf (FEW) 11/24/16 20:30 Calcium Oxalate Crystal Few /hpf (NONE SEEN) 11/24/16 20:30 Hyaline Casts 1 /lpf 11/24/16 20:30 Urine Mucus Rare 11/24/16 20:30 RPR Titer Nonreactive (NONREACTIVE) 11/25/16 07:30 Assessment: 11/26/16 10:11 WITHDRAWAL SYMPTOM Plan: CONTINUE DETOX,BGM MONITORING
[2016-11-26] MEDS: CYCLOBENZAPRINE HCL 10 MG TABLET (FP) PO PRN (10:25)
[2016-11-26] MEDS: PRENATAL VITAMINS W/ FOLIC ACID TABLET (FP) PO SCH (10:25)
[2016-11-26] MEDS: hydrOXYzine PAMOATE 50 MG CAPSULE (FP) PO PRN (10:25)
[2016-11-26] MEDS: METHADONE HCL 5 MG TABLET (FOR DETOX USE ONLY) PO SCH (10:25)
[2016-11-26] MEDS: LABETALOL HCL 100 MG TABLET (FP) PO SCH ×2 (10:26→22:44)
[2016-11-26] MEDS: amLODIPine BESYLATE 10 MG TABLET (FP) PO SCH (10:26)
[2016-11-26] MEDS: NICOTINE 14 MG/24 HOURS TOPICAL PATCH TD SCH (10:26)
[2016-11-26] MEDS: IBUPROFEN 400 MG TABLET (FP) PO PRN (10:26)
[2016-11-26] MEDS ORDERED: INSULIN (NOVOLOG) ASPART 100 UNITS/ML 10ML VIAL ONE (17:11)
[2016-11-26] MEDS: chlordiazePOXIDE 5 MG CAPSULE PO SCH (22:44)
[2016-11-26] MEDS: INSULIN DETEMIR 100 UNITS/ML MDV SQ SCH (22:48)
[2016-11-26] MEDS: ALBUTEROL SO4 6.7 GM HFA INHALER IH PRN (22:53)
[2016-11-26] MEDS: THIAMINE HCL 100 MG TABLET (FP) PO SCH (22:53)
[2016-11-27] MEDS: chlordiazePOXIDE 5 MG CAPSULE PO SCH ×3 (05:53→17:47)
[2016-11-27] MEDS: ALBUTEROL SO4 6.7 GM HFA INHALER IH PRN ×4 (05:56→22:46)
[2016-11-27] MEDS: metFORMIN HCL 500 MG TABLET (FP) PO SCH ×2 (07:29→17:49)
[2016-11-27] MEDS: INSULIN SLIDING SCALE (NOVOLOG) 1 VIAL SQ SCH ×3 (07:31→17:50)
[2016-11-27] MEDS: PRENATAL VITAMINS W/ FOLIC ACID TABLET (FP) PO SCH (10:13)
[2016-11-27] MEDS: amLODIPine BESYLATE 10 MG TABLET (FP) PO SCH (10:13)
[2016-11-27] MEDS: LABETALOL HCL 100 MG TABLET (FP) PO SCH ×2 (10:13→22:33)
[2016-11-27] MEDS: NICOTINE 14 MG/24 HOURS TOPICAL PATCH TD SCH (10:14)
[2016-11-27] MEDS: METHADONE HCL 5 MG TABLET (FOR DETOX USE ONLY) PO SCH (10:14)
--- NOTE | 2016-11-27 10:20 | PN ---
BHS Progress Note (SOAP) Subjective: ALERT,IRRITABLE,ANXIOUS,INTERRUPTED SLEEP,TREMOR,PAIN IN THE BODY AND BACK Objective: 11/27/16 10:19 Vital Signs Temperature 97.0 F L 11/27/16 09:56 Pulse Rate 94 H 11/27/16 09:56 Respiratory Rate 20 11/27/16 09:56 Blood Pressure 160/89 11/27/16 09:56 O2 Sat by Pulse Oximetry (%) Assessment: 11/27/16 10:19 WITHDRAWAL SYMPTOM Plan: CONTINUE DETOX
[2016-11-27] MEDS ORDERED: INSULIN (NOVOLOG) ASPART 100 UNITS/ML 10ML VIAL ONE ×2 (11:21→16:58)
--- NOTE | 2016-11-27 12:01 | EKG ---
Test Reason : Blood Pressure : / mmHG Vent. Rate : 104 BPM Atrial Rate : 104 BPM P-R Int : 196 ms QRS Dur : 092 ms QT Int : 376 ms P-R-T Axes : 081 080 079 degrees QTc Int : 494 ms SINUS TACHYCARDIA OTHERWISE NORMAL ECG WHEN COMPARED WITH ECG OF 20-OCT-2016 14:40, NO SIGNIFICANT CHANGE WAS FOUND Confirmed by ADRIANNA CHISHOLM MD ([id number]) on 11/27/2016 12:01:37 PM Referred By: Confirmed By:ADRIANNA CHISHOLM MD
[2016-11-27] MEDS: THIAMINE HCL 100 MG TABLET (FP) PO SCH (22:33)
[2016-11-27] MEDS: chlordiazePOXIDE HCL 10 MG CAPSULE PO SCH (22:33)
[2016-11-27] MEDS: INSULIN DETEMIR 100 UNITS/ML MDV SQ SCH (22:34)
[2016-11-28] MEDS: chlordiazePOXIDE HCL 10 MG CAPSULE PO SCH ×3 (05:46→17:16)
[2016-11-28] MEDS: ALBUTEROL SO4 6.7 GM HFA INHALER IH PRN ×2 (05:46→13:35)
[2016-11-28] MEDS: metFORMIN HCL 500 MG TABLET (FP) PO SCH ×2 (07:05→17:16)
[2016-11-28] MEDS: INSULIN SLIDING SCALE (NOVOLOG) 1 VIAL SQ SCH ×3 (07:05→17:17)
[2016-11-28] MEDS ORDERED: METHADONE HCL 10 MG TABLET (FOR DETOX USE ONLY) PO SCH (10:00)
[2016-11-28] MEDS: amLODIPine BESYLATE 10 MG TABLET (FP) PO SCH (10:10)
[2016-11-28] MEDS: NICOTINE 14 MG/24 HOURS TOPICAL PATCH TD SCH (10:10)
[2016-11-28] MEDS: LABETALOL HCL 100 MG TABLET (FP) PO SCH ×2 (10:10→22:35)
[2016-11-28] MEDS: PRENATAL VITAMINS W/ FOLIC ACID TABLET (FP) PO SCH (10:10)
--- NOTE | 2016-11-28 10:21 | PN ---
S Progress Note (SOAP) Subjective: ALERT,IRRITABLE,INTERRUPTED SLEEP Objective: 11/28/16 10:20 Vital Signs Temperature 97.0 F L 11/28/16 10:01 Pulse Rate 97 H 11/28/16 10:01 Respiratory Rate 20 11/28/16 10:01 Blood Pressure 140/89 11/28/16 10:01 O2 Sat by Pulse Oximetry (%) Assessment: 11/28/16 10:20 WITHDRAWAL SYMPTOM Plan: CONTINUE DETOX,DISCHARGE IN AM
[2016-11-28] MEDS ORDERED: INSULIN (NOVOLOG) ASPART 100 UNITS/ML 10ML VIAL ONE (17:15)
[2016-11-28] MEDS: THIAMINE HCL 100 MG TABLET (FP) PO SCH (22:35)
[2016-11-28] MEDS: INSULIN DETEMIR 100 UNITS/ML MDV SQ SCH (22:39)
[2016-11-29] MEDS ORDERED: METHADONE HCL 5 MG TABLET (FOR DETOX USE ONLY) PO SCH (06:00)
[2016-11-29] MEDS: metFORMIN HCL 500 MG TABLET (FP) PO SCH (07:24)
[2016-11-29] MEDS ORDERED: cloNIDine HCL 0.1 MG TABLET PO ONE (07:29)
[2016-11-29] MEDS: INSULIN SLIDING SCALE (NOVOLOG) 1 VIAL SQ SCH (07:31)
--- NOTE | 2016-11-29 08:43 | DS ---
[facility] Detox Discharge Summary Admission Date: 11/24/16 Discharge Date: 11/29/16 - History Present History: Alcohol Dependence, Cocaine Dependence, Opioid Dependence Additional Comments: FOLLOW UP WITH AFTER CARE PROGRAM ARRANGEMENT Pertinent Past History: OBESITY ASTHMA ESSENTIAL HYPERTENSION TYPE 2 DM NICOTINE DEPENDENCE - Physical Exam Results Vital Signs: Vital Signs Temperature 97.7 F 11/29/16 06:20 Pulse Rate 91 H 11/29/16 06:20 Respiratory Rate 18 11/29/16 06:20 Blood Pressure 157/92 11/29/16 06:20 O2 Sat by Pulse Oximetry (%) Pertinent Admission Physical Exam Findings: WITHDRAWAL SYMPTOM - Treatment Hospital Course: Detox Protocol Followed, Detoxed Safely, Responded well, Discharged Condition Good, Rehab Referral Accepted Patient has Accepted a Rehab Referral to: [facility] - Medication Discharge Medications: Ambulatory Orders Insulin (Novolog) [Novolog Flexpen -] 0 units SQ ACHS 07/12/16 Insulin Glargine,Hum.rec.anlog [Lantus (10mL VIAL) -] 10 units SQ HS 07/12/16 Amlodipine Besylate 10 mg PO DAILY 07/13/16 Lisinopril 40 mg PO ASDIR 07/13/16 Albuterol 0.083% Nebulizer Bryanna [Ventolin 0.083% Nebulizer Soln -] 1 amp NEB Q4HPO amp 07/14/16 Labetalol HCl [Normodyne -] 100 mg PO BID tablet 07/14/16 Prednisone [Deltasone -] 40 mg PO DAILY #8 tablet 07/18/16 Metformin HCl [Glucophage -] 500 mg PO BID 10/20/16 - Diagnosis (1) Abdominal hernia Current Visit: Yes Status: Chronic Qualifiers: Hernia type: unspecified Obstruction and gangrene presence: without obstruction or gangrene Recurrence: not specified as recurrent Qualified Code(s): K46.9 - Unspecified abdominal hernia without obstruction or gangrene; K45 - Other abdominal hernia (2) Alcohol dependence with uncomplicated withdrawal Current Visit: Yes Status: Chronic (3) Asthma Current Visit: Yes Status: Chronic Qualifiers: Asthma severity: mild intermittent Asthma complication type: uncomplicated Qualified Code(s): J45.20 - Mild intermittent asthma, uncomplicated (4) Cocaine dependence Current Visit: Yes Status: Chronic Qualifiers: Substance use status: uncomplicated Qualified Code(s): F14.20 - Cocaine dependence, uncomplicated (5) Essential hypertension Current Visit: Yes Status: Chronic (6) Obesity Current Visit: Yes Status: Chronic Qualifiers: Obesity type: unspecified obesity type (7) Opioid dependence with withdrawal Current Visit: Yes Status: Chronic (8) Nicotine dependence Current Visit: Yes Status: Acute Qualifiers: Nicotine product type: cigarettes Substance use status: uncomplicated Qualified Code(s): F17.210 - Nicotine dependence, cigarettes, uncomplicated - AMA Did Patient Leave Against Medical Advice: No
[2016-11-29 09:43] VITALS: BP 133/83; PULSE 95; TEMP 96.8
[2016-11-29] MEDS: amLODIPine BESYLATE 10 MG TABLET (FP) PO SCH (10:29)
[2016-11-29] MEDS: LABETALOL HCL 100 MG TABLET (FP) PO SCH (10:30)
[2016-11-29] MEDS: NICOTINE 14 MG/24 HOURS TOPICAL PATCH TD SCH (10:30)
[2016-11-29] MEDS: PRENATAL VITAMINS W/ FOLIC ACID TABLET (FP) PO SCH (10:30)
[2016-11-29] MEDS: ALBUTEROL SO4 6.7 GM HFA INHALER IH PRN (10:34)
== END 2016-11-29 11:22 | disposition other institution (70) | DRG 773 ==
LOC: YASAS 10:16 → Y6N 17:39
PROVIDERS: ADMIT Internal Medicine Addiction Medicine; ATTEND Internal Medicine Addiction Medicine
PROC: HZ2ZZZZ Detoxification Services for Substance Abuse Treatment (ICD-10-PCS; principal; 2016-11-24)
DX: F11.23 Opioid dependence with withdrawal (principal); F10.230 Alcohol dependence with withdrawal, uncomplicated; F14.20 Cocaine dependence, uncomplicated; F17.210 Nicotine dependence, cigarettes, uncomplicated; F19.24 Other psychoactive substance dependence with psychoactive substance-induced mood disorder; J45.20 Mild intermittent asthma, uncomplicated; I10 Essential (primary) hypertension; E66.9 Obesity, unspecified; Z68.37 Body mass index [BMI] 37.0-37.9, adult; R00.0 Tachycardia, unspecified; K46.9 Unspecified abdominal hernia without obstruction or gangrene; E11.9 Type 2 diabetes mellitus without complications; E78.5 Hyperlipidemia, unspecified; Z87.438 Personal history of other diseases of male genital organs; Z79.4 Long term (current) use of insulin; Z91.010 Allergy to peanuts; Z79.84 Long term (current) use of oral hypoglycemic drugs
CPT/HCPCS: 36415; 80053; 81003; 81015; 85027; 86593; 93005; 93010

== ENCOUNTER 2016-11-29 11:53 | Inpatient (IN) | payer OTHER ==
--- NOTE | 2016-11-29 13:04 | HP ---
Psychiatrist Admission - Data Date of interview: 11/29/16 Admission source: 6N Identifying data: This is the third [facility] admission for this 51 years old single Black male, father of 2 children, unemployed on SSI, homeless Medical History: Reports incisional hernia, COPD, bronchial asthma, hypertension , diabetes mellitus, syphilis (treated), obesity, neuropathy and a history of umbilical herniorraphy.Noted report of past reversal of colostomy (2014) for diverticulitis and orthosurgery for rotator cuff repair two years ago (left shoulder). Psychiatric History: Denies history of previous psychiatric treatment Physical/Sexual Abuse/Trauma History: Denies history of emitional, physical or sexual abuse as well as DV relationship Additional Comment: Reports history ofone felony conviction. Denies being on parole/probation Allergies/Adverse Reactions: Allergies Allergy/AdvReac Type Severity Reaction Status Date / Time almond oil [[place] Oil] Allergy Unknown Allergy to Verified 11/29/16 12:42 Almonds No Known Drug Allergies Allergy Verified 11/29/16 12:42 ALMONDS Allergy Severe Rash Uncoded 11/29/16 12:42 Date of last physical exam: 11/24/16 Concur with the findings of this exam: Yes - Substance Abuse/Tx History Hx Alcohol Use: Yes Hx Substance Use: Yes Substance Use Type: Alcohol (Started drinking alcohol at age 48, consumes 4 pints of liquor daily. Last drink on 11/24/16), Cocaine (Started using cocaine at age 49, consumes 5 bags daily. Last used on 11/24/16), Heroin (Started using heroin at age 49, consumes 6 bags daily. Last used on 11/24/16) Hx Substance Use Treatment: Yes (6 previous inpt detox & 2 inpt rehab) - Admission Criteria Previous failed treatment: Yes Poor recovery environment: Yes Comorbidities: Yes Lacks judgement: Yes Mental Status Exam - Mental Status Exam Alert and Oriented to: Time, Place, Person Cognitive Function: Fair Patient Appearance: Well Groomed Mood: Irritable Affect: Appropriate Patient Behavior: Cooperative Speech Pattern: Clear Voice Loudness: Normal Thought Process: Intact Thought Disorder: Not Present Hallucinations: Denies Suicidal Ideation: Denies Homicidal Ideation: Denies Insight/Judgement: Fair Sleep: Poorly Appetite: Good Muscle strength/Tone: Normal Gait/Station: Normal Psychiatric Findings - Problem List ([place] 1, 2,3) (1) Alcohol dependence Current Visit: No Status: Acute (2) Opioid dependence Current Visit: Yes Status: Acute (3) Cocaine dependence Current Visit: No Status: Chronic Qualifiers: Substance use status: uncomplicated Qualified Code(s): F14.20 - Cocaine dependence, uncomplicated (4) Nicotine dependence Current Visit: No Status: Acute Qualifiers: Nicotine product type: cigarettes Substance use status: uncomplicated Qualified Code(s): F17.210 - Nicotine dependence, cigarettes, uncomplicated (5) Substance induced mood disorder Current Visit: No Status: Acute (6) Abdominal hernia Current Visit: No Status: Chronic Qualifiers: Hernia type: unspecified Obstruction and gangrene presence: without obstruction or gangrene Recurrence: not specified as recurrent Qualified Code(s): K46.9 - Unspecified abdominal hernia without obstruction or gangrene; K45 - Other abdominal hernia (7) Asthma Current Visit: No Status: Chronic Qualifiers: Asthma severity: mild intermittent Asthma complication type: uncomplicated Qualified Code(s): J45.20 - Mild intermittent asthma, uncomplicated (8) COPD exacerbation Current Visit: No Status: Chronic (9) Diabetes mellitus Current Visit: No Status: Chronic Qualifiers: Diabetes mellitus type: type 2 Diabetes mellitus complication status: without complication Diabetes mellitus fci insulin 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
[2016-11-29 13:38] VITALS: BMI 33.5
[2016-11-29] MEDS ORDERED: hydrOXYzine PAMOATE 50 MG CAPSULE (FP) PO PRN (14:25)
[2016-11-29] MEDS ORDERED: MENTHOL/PHENOL 1 EACH UD MM PRN (14:25)
[2016-11-29] MEDS ORDERED: LOPERAMIDE HCL 2 MG CAPSULE PO PRN (14:25)
[2016-11-29] MEDS ORDERED: ACETAMINOPHEN 325 MG TABLET (FP) PO PRN (14:25)
[2016-11-29] MEDS ORDERED: guaiFENesin/D-METHORPHAN HB 10 ML UNIT-DOSE CUPS PO PRN (14:25)
[2016-11-29] MEDS ORDERED: MAGNESIUM HYDROX 2400MG/30ML ORAL SUSPENSION 30 ML CUP PO PRN (14:25)
[2016-11-29] MEDS ORDERED: P-EPHED 60MG/TRIPROLIDI 2.5MG TABLET PO PRN (14:25)
[2016-11-29] MEDS ORDERED: MAG HYDROX/AL HYDROX/SIMETH 30 ML UNIT-DOSE CUP PO PRN (14:25)
[2016-11-29] MEDS ORDERED: MAGNESIUM CITRATE 300 ML BOTTLE PO PRN (14:25)
--- NOTE | 2016-11-29 14:25 | HP ---
[facility] Rehab Assess/Revision - Admission History Admitted to Rehab from: [facility] [place] Date of Admission to Rehab: 11/29/16 - Vital signs Vital Signs: Vital Signs Period Temp Pulse Resp BP Sys/Jamie Pulse Ox Last 24 Hr 96 20 152/87 - Findings Detox History & Physical reviewed: Yes Concur with findings: Yes Comments/Additional Findings: for rehab as protocol
[2016-11-29] MEDS ORDERED: LISINOPRIL 40 MG PO SCH (14:30)
[2016-11-29] MEDS: ALBUTEROL SO4 6.7 GM HFA INHALER IH PRN (15:52)
[2016-11-29] MEDS: CYCLOBENZAPRINE HCL 10 MG TABLET (FP) PO PRN ×2 (15:52→21:22)
[2016-11-29] MEDS: metFORMIN HCL 500 MG TABLET (FP) PO SCH (16:58)
[2016-11-29] MEDS: INSULIN (NOVOLOG) ASPART 100 UNITS/ML 10ML VIAL SQ SCH ×2 (17:00→21:22)
[2016-11-29] MEDS: LABETALOL HCL 100 MG TABLET (FP) PO SCH (21:22)
[2016-11-29] MEDS: THIAMINE HCL 100 MG TABLET (FP) PO SCH (21:22)
[2016-11-29] MEDS: INSULIN DETEMIR 100 UNITS/ML MDV SQ SCH (21:22)
[2016-11-29] MEDS: diphenhydrAMINE HCL 50 MG CAPSULE PO PRN (21:23)
[2016-11-29] MEDS ORDERED: INSULIN (NOVOLOG) ASPART 100 UNITS/ML 10ML VIAL ONE (21:55)
[2016-11-30] MEDS: ALBUTEROL SO4 6.7 GM HFA INHALER IH PRN ×2 (06:35→09:55)
[2016-11-30] MEDS: INSULIN (NOVOLOG) ASPART 100 UNITS/ML 10ML VIAL SQ SCH ×4 (07:40→21:05)
[2016-11-30] MEDS: metFORMIN HCL 500 MG TABLET (FP) PO SCH ×2 (07:40→16:58)
[2016-11-30] MEDS: LISINOPRIL 20 MG TABLET (FP) PO SCH (09:53)
[2016-11-30] MEDS: amLODIPine BESYLATE 10 MG TABLET (FP) PO SCH (09:53)
[2016-11-30] MEDS: LABETALOL HCL 100 MG TABLET (FP) PO SCH ×2 (09:54→21:04)
[2016-11-30] MEDS: CYCLOBENZAPRINE HCL 10 MG TABLET (FP) PO PRN (09:54)
[2016-11-30] MEDS: PRENATAL VITAMINS W/ FOLIC ACID TABLET (FP) PO SCH (09:54)
[2016-11-30] MEDS ORDERED: INSULIN (NOVOLOG) ASPART 100 UNITS/ML 10ML VIAL ONE ×3 (11:18→21:47)
--- NOTE | 2016-11-30 16:58 | PN ---
S Progress Note Note: patient had incisional hernia for 2 years post surgery for diverticulitis with perforatiion has appointment to see own surgon next week on sunday also has acid reflux treatment protonix 40mgs po daily to see surgeon for repair of incisional hernia as appointment
[2016-11-30] MEDS: diphenhydrAMINE HCL 50 MG CAPSULE PO PRN (21:04)
[2016-11-30] MEDS: THIAMINE HCL 100 MG TABLET (FP) PO SCH (21:04)
[2016-11-30] MEDS: INSULIN DETEMIR 100 UNITS/ML MDV SQ SCH (21:05)
[2016-12-01] MEDS: metFORMIN HCL 500 MG TABLET (FP) PO SCH ×2 (06:38→16:49)
[2016-12-01] MEDS: INSULIN (NOVOLOG) ASPART 100 UNITS/ML 10ML VIAL SQ SCH ×4 (06:38→21:21)
[2016-12-01] MEDS: PRENATAL VITAMINS W/ FOLIC ACID TABLET (FP) PO SCH (10:14)
[2016-12-01] MEDS: LABETALOL HCL 100 MG TABLET (FP) PO SCH ×2 (10:15→21:22)
[2016-12-01] MEDS: amLODIPine BESYLATE 10 MG TABLET (FP) PO SCH (10:41)
[2016-12-01] MEDS: LISINOPRIL 20 MG TABLET (FP) PO SCH (10:42)
[2016-12-01] MEDS ORDERED: INSULIN (NOVOLOG) ASPART 100 UNITS/ML 10ML VIAL ONE ×3 (11:46→21:20)
[2016-12-01] MEDS: INSULIN DETEMIR 100 UNITS/ML MDV SQ SCH (21:21)
[2016-12-01] MEDS: THIAMINE HCL 100 MG TABLET (FP) PO SCH (21:22)
[2016-12-01] MEDS: diphenhydrAMINE HCL 50 MG CAPSULE PO PRN (21:22)
[2016-12-02] MEDS: metFORMIN HCL 500 MG TABLET (FP) PO SCH ×2 (06:33→17:16)
[2016-12-02] MEDS: INSULIN (NOVOLOG) ASPART 100 UNITS/ML 10ML VIAL SQ SCH ×4 (06:34→21:35)
[2016-12-02] MEDS: amLODIPine BESYLATE 10 MG TABLET (FP) PO SCH (09:50)
[2016-12-02] MEDS: LISINOPRIL 20 MG TABLET (FP) PO SCH (09:50)
[2016-12-02] MEDS: PRENATAL VITAMINS W/ FOLIC ACID TABLET (FP) PO SCH (09:50)
[2016-12-02] MEDS: LABETALOL HCL 100 MG TABLET (FP) PO SCH ×2 (09:50→21:28)
[2016-12-02] MEDS ORDERED: INSULIN (NOVOLOG) ASPART 100 UNITS/ML 10ML VIAL ONE ×2 (17:18→21:33)
[2016-12-02] MEDS: diphenhydrAMINE HCL 50 MG CAPSULE PO PRN (21:28)
[2016-12-02] MEDS: THIAMINE HCL 100 MG TABLET (FP) PO SCH (21:28)
[2016-12-02] MEDS: INSULIN DETEMIR 100 UNITS/ML MDV SQ SCH (21:30)
[2016-12-02] MEDS ORDERED: PT OWN MED DRAWER 7, Y5N ONE (21:35)
[2016-12-03] MEDS: INSULIN (NOVOLOG) ASPART 100 UNITS/ML 10ML VIAL SQ SCH ×4 (06:37→21:30)
[2016-12-03] MEDS: metFORMIN HCL 500 MG TABLET (FP) PO SCH ×2 (06:37→17:45)
[2016-12-03] MEDS: ALBUTEROL SO4 6.7 GM HFA INHALER IH PRN (08:38)
[2016-12-03] MEDS: amLODIPine BESYLATE 10 MG TABLET (FP) PO SCH (09:28)
[2016-12-03] MEDS: PRENATAL VITAMINS W/ FOLIC ACID TABLET (FP) PO SCH (09:28)
[2016-12-03] MEDS: LISINOPRIL 20 MG TABLET (FP) PO SCH (09:28)
[2016-12-03] MEDS: LABETALOL HCL 100 MG TABLET (FP) PO SCH ×2 (09:28→21:26)
[2016-12-03] MEDS ORDERED: INSULIN (NOVOLOG) ASPART 100 UNITS/ML 10ML VIAL ONE ×3 (11:19→21:30)
[2016-12-03] MEDS: diphenhydrAMINE HCL 50 MG CAPSULE PO PRN (21:26)
[2016-12-03] MEDS: THIAMINE HCL 100 MG TABLET (FP) PO SCH (21:26)
[2016-12-03] MEDS: INSULIN DETEMIR 100 UNITS/ML MDV SQ SCH (21:44)
[2016-12-04] MEDS: IBUPROFEN 400 MG TABLET (FP) PO PRN ×2 (06:29→19:01)
[2016-12-04 06:56] VITALS: TEMP 98.5
[2016-12-04] MEDS: ALBUTEROL SO4 6.7 GM HFA INHALER IH PRN ×2 (07:19→15:23)
[2016-12-04] MEDS: metFORMIN HCL 500 MG TABLET (FP) PO SCH ×2 (07:33→16:41)
[2016-12-04] MEDS: INSULIN (NOVOLOG) ASPART 100 UNITS/ML 10ML VIAL SQ SCH ×4 (07:35→21:05)
[2016-12-04] MEDS ORDERED: INSULIN (NOVOLOG) ASPART 100 UNITS/ML 10ML VIAL ONE ×2 (07:35→16:53)
[2016-12-04] MEDS: amLODIPine BESYLATE 10 MG TABLET (FP) PO SCH (09:38)
[2016-12-04] MEDS: LISINOPRIL 20 MG TABLET (FP) PO SCH (09:38)
[2016-12-04] MEDS: PRENATAL VITAMINS W/ FOLIC ACID TABLET (FP) PO SCH (09:38)
[2016-12-04] MEDS: LABETALOL HCL 100 MG TABLET (FP) PO SCH ×2 (09:40→21:03)
[2016-12-04] MEDS ORDERED: PT OWN MED DRAWER 7, Y5N ONE (15:23)
[2016-12-04 20:19] VITALS: BP 119/80; PULSE 98
[2016-12-04] MEDS: THIAMINE HCL 100 MG TABLET (FP) PO SCH (21:03)
[2016-12-04] MEDS: INSULIN DETEMIR 100 UNITS/ML MDV SQ SCH (21:40)
[2016-12-04] MEDS: diphenhydrAMINE HCL 50 MG CAPSULE PO PRN (22:18)
--- NOTE | 2016-12-05 07:16 | PN ---
[facility] Progress Note Note: PT. REQUESTED TO LEAVE AMA. HE LEFT THE FLOOR WITHOUT SPEAKING TO THE NURSE. HE FOUND HIS WAY TO THE SECURITY OFFICE AND REFUSED TO COME BACK TO THE UNIT TO SIGN DISCHARGE PAPERWORK OR TO SPEAK TO THE SUPERVISOR FINAL.
== END 2016-12-05 03:00 | disposition left against medical advice (07) | DRG 770 ==
LOC: YASAS 11:53 → Y3W 11:54
PROVIDERS: ADMIT Psychiatry & Neurology Psychiatry; ATTEND Psychiatry & Neurology Psychiatry
PROC: HZ42ZZZ Group Counseling for Substance Abuse Treatment, Cognitive-Behavioral (ICD-10-PCS; principal; 2016-11-29)
DX: F11.20 Opioid dependence, uncomplicated (principal); F10.20 Alcohol dependence, uncomplicated; F14.20 Cocaine dependence, uncomplicated; F17.210 Nicotine dependence, cigarettes, uncomplicated; F19.24 Other psychoactive substance dependence with psychoactive substance-induced mood disorder; I10 Essential (primary) hypertension; E11.9 Type 2 diabetes mellitus without complications; J45.20 Mild intermittent asthma, uncomplicated; K46.9 Unspecified abdominal hernia without obstruction or gangrene; K21.9 Gastro-esophageal reflux disease without esophagitis; Z87.438 Personal history of other diseases of male genital organs; E66.9 Obesity, unspecified; Z68.39 Body mass index [BMI] 39.0-39.9, adult; G62.9 Polyneuropathy, unspecified; Z91.010 Allergy to peanuts

== ENCOUNTER 2017-07-13 11:34 | Inpatient (IN) | payer OTHER ==
[2017-07-13 12:17] VITALS: BMI 43.2
--- NOTE | 2017-07-13 14:40 | HP ---
COWS - Scale Resting Pulse: 2= [place] 101-120 Sweatin= Chills/Flushing Restless Observation: 1= Difficult to Sit Still Pupil Size: 0= Normal to Room Light Bone or Joint Aches: 2= Severe Diffuse Aches Runny Nose/ Eye Tearin= Runny Nose/Eyes GI Upset > 30mins: 2= Nausea/Diarrhea Tremor Observation: 2= Slight Tremor Visible Yawning Observation: 1= 1-2x During Session Anxiety or Irritability: 2=Irritable/Anxious Goose Flesh Skin: 0=Smooth Skin COWS Score: 15 Admission ROS [facility] Chief Complaint: "I need help for my Heroin use." Patient is here to Detox from Heroin. Allergies/Adverse Reactions: Allergies Allergy/AdvReac Type Severity Reaction Status Date / Time almond oil [[place] Oil] Allergy Severe Hives Verified 07/13/17 15:23 No Known Drug Allergies Allergy Verified 07/13/17 15:23 ALMONDS Allergy Severe Hives Uncoded 07/13/17 15:23 History of Present Illness: Patient is a 52 YO male here to Detox from Heroin. Patient has had several previous Detox/Rehab admissions at [facility] (last: 11/2016). Patient had a Detox admission at [facility] in 06/2016. Longest period of non- drug use in recent years: approx. 6 months (while incarcerated). Exam Limitations: No Limitations - Ebola screening Have you traveled outside of the country in the last 21 days: No (N) Have you had contact with anyone from an Ebola affected area: No Have you been sick,other than usual withdrawal symptoms: No Do you have a fever: No - Review of Systems Constitutional: Diaphoresis, Malaise, Night Sweats, Changes in sleep EENT: reports: Nose Congestion, Sinus Pressure Respiratory: reports: Shortness of Breath (Occasional.) Cardiac: reports: No Symptoms Reported GI: reports: Diarrhea, Nausea, Abdominal cramping : reports: No Symptoms Reported Musculoskeletal: reports: Joint Pain, Joint Stiffness Integumentary: reports: No Symptoms Reported Neuro: reports: Tremors Endocrine: reports: No Symptoms Reported Hematology: reports: No Symptoms Reported Psychiatric: reports: Judgement Intact, Mood/Affect Appropiate, Orientated x3, Agitated, Anxious Other Systems: Reviewed and Negative Patient History - Patient Medical History Hx Anemia: No Hx Asthma: Yes (Uses MDI PRN and DuoNeb PRN.) Hx Chronic Obstructive Pulmonary Disease (COPD): No Hx Cancer: No Hx Cardiac Disorders: No Hx Congestive Heart Failure: No Hx Hypertension: Yes (On meds. Has not taken in > 1 month.) Hx Hypercholesterolemia: No Hx Pacemaker: No HX Cerebrovascular Accident: No Hx Seizures: No Hx Dementia: No Hx Diabetes: Yes (Meds. Took Insulin in past,however reports that med. provider stopped.) Hx Gastrointestinal Disorders: Yes (Hsitory of Diverticulitis.) Hx Liver Disease: No Hx Genitourinary Disorders: No Hx Sexually Transmitted Disorders: No Hx Renal Disease (ESRD): No Hx Thyroid Disease: No Hx Human Immunodeficiency Virus (HIV): No (Last Tested: approx. 2 weeks ago: NEGATIVE.) Hx Hepatitis C: No (Last Tested: 2016: NEGATIVE.) Hx Depression: No Hx Suicide Attempt: No (PATIENT DENIES CURRENT SI / HI.) Hx Bipolar Disorder: No Hx Schizophrenia: No Other Medical History: Gout. - Patient Surgical History Past Surgical History: Yes Hx Neurologic Surgery: No Hx Cataract Extraction: No Hx Cardiac Surgery: No Hx Lung Surgery: No Hx Breast Surgery: No Hx Breast Biopsy: No Hx Abdominal Surgery: Yes (colostomy reversal 02/12/15, hernia) Hx Appendectomy: No Hx Cholecystectomy: No Hx Genitourinary Surgery: No Hx Orthopedic Surgery: Yes (left rotator cuff surgery 2 years ago) Other Surgical History: Umbilical Hernia Repair: 2014 Anesthesia Reaction: No - PPD History Documented Results: Negative w/proof Date: 11/26/16 Results: 0 mm PPD to be Administered?: No - Reproductive History Patient is a Female of Child Bearing Age (11 -55 yrs old): No (PATIENT IS MALE.) - Smoking Cessation Smoking history: Current some day smoker Have you smoked in the past 12 months: Yes Aproximately how many cigarettes per day: 2 Cigars Per Day: 0 Hx Chewing Tobacco Use: No Initiated information on smoking cessation: Yes 'Breaking Loose' booklet given: 07/13/17 (GIVEN TO PATIENT.) - Substance & Tx. History Hx Alcohol Use: No Hx Substance Use: Yes Substance Use Type: Heroin Hx Substance Use Treatment: Yes (Previous Detox/Rehab admissions at [facility] (Last: 11/2016).) - Substances Abused Heroin Route: Inhalation Frequency: Daily Amount used: 9 Bags. Age of first use: 23 Date of Last Use: 07/12/17 Family Disease History - Family Disease History Family Disease History: Diabetes: Mother Admission Physical Exam S - Vital Signs Vital Signs: Vital Signs - 24 hr 07/13/17 12:09 Temperature 96.9 F L Pulse Rate 110 H Respiratory 20 Rate Blood Pressure 155/102 - Physical General Appearance: Yes: No Apparent Distress, Nourished, Appropriately Dressed , Tremorous, Irritable, Anxious HEENTM: Yes: Hearing grossly Normal, Normocephalic, Normal Voice, SAL, Pharynx Normal Respiratory: Yes: Chest Non-Tender, No Respiratory Distress, No Accessory Muscle Use, Wheezing Neck: Yes: No masses,lesions,Nodules, Supple, Trachea in good position Breast: Yes: Breast Exam Deferred Cardiology: Yes: Regular Rhythm, S1, S2, Tachycardia Abdominal: Yes: Normal Bowel Sounds, Distended (History of Unbilical Hernia and Repair Surgery.), Surgical Scar (Central Lower Abdomen (Healed); Right Lower Abdomen (former site of Colostomy, healed).) Genitourinary: Yes: Within Normal Limits Back: Yes: Normal Inspection Musculoskeletal: Yes: Gait Steady, Joint Stiffness Extremities: Yes: Normal Capillary Refill, Tremors Neurological: Yes: Fully Oriented, Alert, Normal Mood/Affect, Normal Response Integumentary: Yes: Normal Color, Dry, Warm Lymphatic: Yes: Within Normal Limits - Diagnostic (1) History of umbilical hernia repair Current Visit: Yes Status: Resolved (2) Nicotine dependence Current Visit: Yes Status: Chronic Qualifiers: Nicotine product type: cigarettes Substance use status: uncomplicated Qualified Code(s): F17.210 - Nicotine dependence, cigarettes, uncomplicated (3) Asthma Current Visit: Yes Status: Chronic Qualifiers: Asthma severity: mild Asthma persistence: intermittent Asthma complication type: uncomplicated Qualified Code(s): J45.20 - Mild intermittent asthma, uncomplicated (4) HTN (hypertension) Current Visit: Yes Status: Chronic Qualifiers: Hypertension type: essential hypertension Qualified Code(s): I10 - Essential (primary) hypertension (5) Gout Current Visit: Yes Status: Acute Qualifiers: Gout site: unspecified site Gout etiology: unspecified cause Chronicity: unspecified Qualified Code(s): M10.9 - Gout, unspecified Cleared for Admission S - Detox or Rehab [facility] Level of Care: Medically Managed Detox Regimen/Protocol: Methadone [facility] Breath Alcohol Content Breath Alcohol Content: 0 Urine Drug Screen - Results Drug Screen Negative: No Urine Drug Screen Results: ANA-Cocaine, OPI-Opiates, PCP-Phencyclidine
[2017-07-13] MEDS ORDERED: MAGNESIUM HYDROX 2400MG/30ML ORAL SUSPENSION 30 ML CUP PO PRN (16:01)
[2017-07-13] MEDS ORDERED: MENTHOL/PHENOL 1 EACH UD MM PRN (16:01)
[2017-07-13] MEDS ORDERED: LOPERAMIDE HCL 2 MG CAPSULE PO PRN (16:01)
[2017-07-13] MEDS ORDERED: MAGNESIUM CITRATE 300 ML BOTTLE PO PRN (16:01)
[2017-07-13] MEDS ORDERED: guaiFENesin/D-METHORPHAN HB 10 ML UNIT-DOSE CUPS PO PRN (16:01)
[2017-07-13] MEDS ORDERED: P-EPHED 60MG/TRIPROLIDI 2.5MG TABLET PO PRN (16:01)
[2017-07-13] MEDS ORDERED: METHADONE HCL 10 MG TABLET (FOR DETOX USE ONLY) PO ONE ×2 (17:15→23:00)
[2017-07-13] MEDS ORDERED: LABETALOL HCL 100 MG TABLET (FP) PO ONE (17:15)
[2017-07-13] MEDS ORDERED: INSULIN (NOVOLOG) ASPART 100 UNITS/ML 10ML VIAL ONE ×2 (18:13→21:13)
[2017-07-13] MEDS: metFORMIN HCL 500 MG TABLET (FP) PO SCH (18:14)
[2017-07-13] MEDS: diazePAM 5 MG TABLET PO PRN ×2 (18:15→21:50)
[2017-07-13] MEDS: IBUPROFEN 400 MG TABLET (FP) PO PRN (18:18)
[2017-07-13] MEDS: INSULIN SLIDING SCALE (NOVOLOG) 1 VIAL SQ SCH ×2 (18:20→21:52)
[2017-07-13] MEDS: ALBUTEROL SO4 0.083% IH SOL 2.5 MG/3 ML VIAL.NEB. NEB SCH (18:20)
[2017-07-13] MEDS: ALBUTEROL SO4 18 GM HFA INHALER IH PRN (20:23)
[2017-07-13] MEDS: LISINOPRIL 20 MG TABLET (FP) PO SCH (21:50)
[2017-07-13] MEDS: THIAMINE HCL 100 MG TABLET (FP) PO SCH (21:50)
[2017-07-13] MEDS: NICOTINE POLACRILEX 2 MG GUM BC PRN (21:51)
[2017-07-13 23:02] LABS: URINE APPEARANCE CLEAR; URINE BILIRUBIN NEGATIVE (NEGATIVE); URINE BLOOD NEGATIVE (NEGATIVE); URINE COLOR YELLOW; URINE GLUCOSE (UA) 3+ (NEGATIVE); URINE KETONE NEGATIVE (NEGATIVE); URINE LEUK ESTERASE NEGATIVE (NEGATIVE); URINE NITRITE NEGATIVE (NEGATIVE); URINE PROTEIN NEGATIVE (NEGATIVE); URINE UROBILINOGEN NEGATIVE mg/dL (0.2-1.0)
[2017-07-14] MEDS: ALBUTEROL SO4 18 GM HFA INHALER IH PRN ×3 (01:46→14:38)
[2017-07-14] MEDS: ALBUTEROL SO4 0.083% IH SOL 2.5 MG/3 ML VIAL.NEB. NEB SCH ×6 (02:00→22:05)
[2017-07-14] MEDS: metFORMIN HCL 500 MG TABLET (FP) PO SCH ×2 (06:21→17:15)
[2017-07-14] MEDS: diazePAM 5 MG TABLET PO PRN ×4 (06:21→22:06)
[2017-07-14] MEDS: IBUPROFEN 400 MG TABLET (FP) PO PRN (06:25)
[2017-07-14] MEDS: NICOTINE POLACRILEX 2 MG GUM BC PRN ×2 (06:27→10:34)
[2017-07-14] MEDS: INSULIN SLIDING SCALE (NOVOLOG) 1 VIAL SQ SCH ×4 (06:46→22:10)
[2017-07-14] MEDS: ACETAMINOPHEN 325 MG TABLET (FP) PO PRN (09:33)
[2017-07-14] MEDS ORDERED: METHADONE HCL 10 MG TABLET (FOR DETOX USE ONLY) PO ONE (10:00)
[2017-07-14] MEDS: LISINOPRIL 20 MG TABLET (FP) PO SCH ×2 (10:31→22:05)
[2017-07-14] MEDS: LABETALOL HCL 100 MG TABLET (FP) PO SCH ×2 (10:31→22:05)
[2017-07-14] MEDS: amLODIPine BESYLATE 10 MG TABLET (FP) PO SCH (10:31)
[2017-07-14 10:32] LABS: HEMATOCRIT 41.3 % (35.4-49); MCHC 33.9 g/dl (32.0-35.9); MEAN CELL VOLUME 94.3 fl (80-96); MEAN PLT VOLUME 8.4 fl (7.5-11.1); PLATELET COUNT 286 K/MM3 (134-434); RBC 4.38 M/mm3 (4.00-5.60); RDW 14.8 % (11.9-15.9); WHITE BLOOD COUNT 7.7 K/mm3 (4.0-10.0)
[2017-07-14] MEDS: PRENATAL VITAMINS W/ FOLIC ACID TABLET (FP) PO SCH (10:36)
[2017-07-14 10:42] LABS: CHLORIDE 101 mmol/L (98-107); POTASSIUM 4.2 mmol/L (3.5-5.1); SODIUM 136 mmol/L (136-145)
[2017-07-14 10:47] LABS: ALBUMIN 3.7 g/dl (3.4-5.0); ALK PHOS 122 U/L (45-117); ANION GAP 8 (8-16); BILIRUBIN,TOTAL 0.4 mg/dL (0.2-1.0); BLOOD UREA NITROGEN 10 mg/dL (7-18); CALCIUM 8.8 mg/dL (8.5-10.1); CO2 27 mmol/L (21-32); CREATININE 0.9 mg/dL (0.7-1.3); GLUCOSE,RANDOM 241 mg/dL (74-106); SGOT/AST 31 U/L (15-37); SGPT/ALT 71 U/L (12-78); TOT PROT 7.4 g/dl (6.4-8.2)
--- NOTE | 2017-07-14 11:21 | CONSULT ---
[facility] Psychiatric Consult - Data Date of interview: 07/14/17 Admission source: [facility] Identifying data: This is one of several admissions to [facility] for this 52 y/ o AA male seeking detox treatment on for heroin,alcohol,phencyclidine and cocaine dependence.Patient is single,father of two,homeless,unemployed and supported on SSI benefits. Substance Abuse History: Discussed with patient in this session.Mr Loera admits to snorting heroin and cocaine on a daily basis.For years.Uses PCP " once in a while ".He reports using substances just prior this [facility] visit.Details in the following [facility] report : Smoking history: Current some day smoker. Have you smoked in the past 12 months: Yes. Aproximately how many cigarettes per day : 2. Cigars Per Day: 0. Hx Chewing Tobacco Use: No. Initiated information on smoking cessation: Yes. 'Breaking Loose' booklet given: 07/13/17 (GIVEN TO PATIENT.). - Substance & Tx. History. Hx Alcohol Use: No. Hx Substance Use: Yes. Substance Use Type: Heroin. Hx Substance Use Treatment: Yes (Previous Detox/Rehab admissions at [facility] (Last: 11/2016).). - Substances Abused. Heroin. Route: Inhalation. Frequency: Daily. Amount used: 9 Bags. Age of first use: 23. Date of Last Use: 07/12/17 Medical History: No changes in medical profile since last encounter of 11/2016 : incisional hernia,COPD,hypercholesterolemia,bronchial asthma,sleep apnea, hypertension,diabetes mellitus,syphilis (treated),obesity,neuropathy and a history of umbilical herniorraphy.Noted report of past reversal of colostomy ( 2014) for diverticulitis and orthosurgery for rotator cuff repair two years ago (left shoulder). Psychiatric History: Patient denies. Physical/Sexual Abuse/Trauma History: No reported history of abuse. Additional Comment: Urine Drug Screen Results: ANA-Cocaine, OPI-Opiates, PCP- Phencyclidine.Noted. Mental Status Exam - Mental Status Exam Alert and Oriented to: Time, Place, Person Cognitive Function: Good Patient Appearance: Well Groomed (obese) Mood: Withdrawn, Anxious Affect: Mood Congruent Patient Behavior: Appropriate, Cooperative Speech Pattern: Clear, Appropriate Voice Loudness: Normal Thought Process: Intact, Goal Oriented Thought Disorder: Not Present Hallucinations: Denies Suicidal Ideation: Denies Homicidal Ideation: Denies Insight/Judgement: Poor Sleep: Poorly, Difficulty falling asleep Appetite: Good Muscle strength/Tone: Normal Gait/Station: Normal Psychiatric Findings - Problem List ([place] 1, 2,3) (1) Opioid dependence with withdrawal Current Visit: Yes Status: Acute (2) PCP dependence Current Visit: Yes Status: Acute (3) Cocaine dependence Current Visit: Yes Status: Acute Qualifiers: Substance use status: uncomplicated Qualified Code(s): F14.20 - Cocaine dependence, uncomplicated (4) Nicotine dependence Current Visit: Yes Status: Acute Qualifiers: Nicotine product type: cigarettes Substance use status: uncomplicated Qualified Code(s): F17.210 - Nicotine dependence, cigarettes, uncomplicated (5) Substance induced mood disorder Current Visit: Yes Status: Suspected (6) Insomnia Current Visit: Yes Status: Acute - Initial Treatment Plan Initial Treatment Plan: Records reviewed.Sleep hygiene.Psychoeducation.Detoxification in progress.Benadryl 50 mg po hs prn.Ordered at patient's request.Side effects/benefits discussed with patient.Mr Loera agrees with careplan.Observation.
[2017-07-14] MEDS ORDERED: INSULIN (NOVOLOG) ASPART 100 UNITS/ML 10ML VIAL ONE ×3 (11:25→23:18)
[2017-07-14] MEDS ORDERED: COLLOIDAL OATMEAL 1 BAR EACH TP PRN (12:27)
--- NOTE | 2017-07-14 15:23 | PN ---
[facility] COWS - Scale Resting Pulse: 2= [place] 101-120 Sweatin=Flushed/Facial Moisture Restless Observation: 1= Difficult to Sit Still Pupil Size: 0= Normal to Room Light Bone or Joint Aches: 2= Severe Diffuse Aches Runny Nose/ Eye Tearin= None GI Upset > 30mins: 2= Nausea/Diarrhea Tremor Observation of Outstretched Hands: 0= None Yawning Observation: 1= 1-2x During Session Anxiety or Irritability: 2=Irritable/Anxious Goose Flesh Skin: 3=Piloerection COWS Score: 15 BHS Progress Note (SOAP) Subjective: Body Aches, Anxious, Sweating, Diarrhea. Objective: PATIENT A & O X 3, OBSERVED AMBULATING ON UNIT. NO ACUTE DISTRESS. PATIENT DENIES CHEST PAIN. 07/14/17 15:21 Vital Signs Temperature 97.1 F L 07/14/17 13:45 Pulse Rate 101 H 07/14/17 13:45 Respiratory Rate 18 07/14/17 13:45 Blood Pressure 166/93 07/14/17 13:45 O2 Sat by Pulse Oximetry (%) Laboratory Tests 07/13/17 07/13/17 07/13/17 18:09 20:59 22:50 WBC RBC Hgb Hct MCV MCH MCHC RDW Plt Count MPV Sodium Potassium Chloride Carbon Dioxide Anion Gap BUN Creatinine Creat Clearance w eGFR POC Glucometer 243 233 Random Glucose Calcium Total Bilirubin AST ALT Alkaline Phosphatase Total Protein Albumin Urine Color Yellow Urine Appearance Clear Urine pH 7.0 Ur Specific [place] 1.031 Urine Protein Negative Urine Glucose (UA) 3+ H Urine Ketones Negative Urine Blood Negative Urine Nitrite Negative Urine Bilirubin Negative Urine Urobilinogen Negative Ur Leukocyte Esterase Negative RPR Titer HIV 1&2 Antibody Screen HIV P24 Antigen 07/14/17 07/14/17 07/14/17 06:00 06:00 06:00 WBC 7.7 RBC 4.38 Hgb 14.0 Hct 41.3 MCV 94.3 MCH 32.0 MCHC 33.9 RDW 14.8 Plt Count 286 MPV 8.4 Sodium 136 Potassium 4.2 Chloride 101 Carbon Dioxide 27 Anion Gap 8 BUN 10 D Creatinine 0.9 Creat Clearance w eGFR > 60 POC Glucometer Random Glucose 241 H D Calcium 8.8 Total Bilirubin 0.4 D AST 31 D ALT 71 D Alkaline Phosphatase 122 H Total Protein 7.4 Albumin 3.7 D Urine Color Urine Appearance Urine pH Ur Specific [place] Urine Protein Urine Glucose (UA) Urine Ketones Urine Blood Urine Nitrite Urine Bilirubin Urine Urobilinogen Ur Leukocyte Esterase RPR Titer Nonreactive HIV 1&2 Antibody Screen HIV P24 Antigen 07/14/17 07/14/17 07/14/17 06:00 06:22 11:21 WBC RBC Hgb Hct MCV MCH MCHC RDW Plt Count MPV Sodium Potassium Chloride Carbon Dioxide Anion Gap BUN Creatinine Creat Clearance w eGFR POC Glucometer 212 206 Random Glucose Calcium Total Bilirubin AST ALT Alkaline Phosphatase Total Protein Albumin Urine Color Urine Appearance Urine pH Ur Specific [place] Urine Protein Urine Glucose (UA) Urine Ketones Urine Blood Urine Nitrite Urine Bilirubin Urine Urobilinogen Ur Leukocyte Esterase RPR Titer HIV 1&2 Antibody Screen Negative HIV P24 Antigen Negative LABS NOTED. HCV AB RESULT PENDING. 07/14/17 15:23 Assessment: 07/14/17 15:21 WITHDRAWAL SYMPTOMS. Plan: CONTINUE DETOX. INCREASE DAILY PO FLUID INTAKE. PRN IMMODIUM FOR DIARRHEA.
[2017-07-14] MEDS: IBUPROFEN 600 MG TABLET (FP) PO PRN (17:15)
[2017-07-14] MEDS: THIAMINE HCL 100 MG TABLET (FP) PO SCH (22:05)
[2017-07-15] MEDS: ALBUTEROL SO4 0.083% IH SOL 2.5 MG/3 ML VIAL.NEB. NEB SCH ×7 (03:10→23:36)
[2017-07-15] MEDS: ALBUTEROL SO4 18 GM HFA INHALER IH PRN ×3 (03:23→22:11)
[2017-07-15] MEDS: IBUPROFEN 600 MG TABLET (FP) PO PRN ×2 (05:13→17:10)
[2017-07-15] MEDS: diazePAM 5 MG TABLET PO PRN ×4 (05:15→22:05)
[2017-07-15] MEDS: INSULIN SLIDING SCALE (NOVOLOG) 1 VIAL SQ SCH ×4 (07:37→22:10)
[2017-07-15] MEDS ORDERED: INSULIN (NOVOLOG) ASPART 100 UNITS/ML 10ML VIAL ONE ×4 (07:38→22:10)
[2017-07-15] MEDS: metFORMIN HCL 500 MG TABLET (FP) PO SCH ×2 (07:38→17:12)
[2017-07-15] MEDS ORDERED: METHADONE HCL 5 MG TABLET (FOR DETOX USE ONLY) PO ONE (10:00)
[2017-07-15] MEDS: LABETALOL HCL 100 MG TABLET (FP) PO SCH ×2 (10:13→22:05)
[2017-07-15] MEDS: amLODIPine BESYLATE 10 MG TABLET (FP) PO SCH (10:13)
[2017-07-15] MEDS: LISINOPRIL 20 MG TABLET (FP) PO SCH ×2 (10:13→22:06)
[2017-07-15] MEDS: PRENATAL VITAMINS W/ FOLIC ACID TABLET (FP) PO SCH (10:13)
[2017-07-15] MEDS ORDERED: hydrOXYzine HCL 25 MG TABLET (FP) PO PRN (10:37)
--- NOTE | 2017-07-15 11:52 | PN ---
[facility] COWS - Scale Resting Pulse: 1= [place] 81-100 Sweatin=Flushed/Facial Moisture Restless Observation: 3= Extraneous Movement Pupil Size: 0= Normal to Room Light Bone or Joint Aches: 2= Severe Diffuse Aches Runny Nose/ Eye Tearin= Runny Nose/Eyes GI Upset > 30mins: 2= Nausea/Diarrhea Tremor Observation of Outstretched Hands: 0= None Yawning Observation: 0= None Anxiety or Irritability: 2=Irritable/Anxious Goose Flesh Skin: 0=Smooth Skin COWS Score: 14 BHS Progress Note (SOAP) Subjective: Sweating, diarrhea, interrupted sleep Objective: 07/15/17 11:49 Last Vital Signs Temp Pulse Resp BP Pulse Ox 97.6 F 91 H 18 177/101 07/15/17 07:39 07/15/17 09:34 07/15/17 09:34 07/15/17 09:34 Laboratory Tests 07/13/17 07/13/17 07/13/17 18:09 20:59 22:50 WBC RBC Hgb Hct MCV MCH MCHC RDW Plt Count MPV Sodium Potassium Chloride Carbon Dioxide Anion Gap BUN Creatinine Creat Clearance w eGFR POC Glucometer 243 233 Random Glucose Calcium Total Bilirubin AST ALT Alkaline Phosphatase Total Protein Albumin Urine Color Yellow Urine Appearance Clear Urine pH 7.0 Ur Specific [place] 1.031 Urine Protein Negative Urine Glucose (UA) 3+ H Urine Ketones Negative Urine Blood Negative Urine Nitrite Negative Urine Bilirubin Negative Urine Urobilinogen Negative Ur Leukocyte Esterase Negative RPR Titer Hep C Ab Diagnostic HIV 1&2 Antibody Screen HIV P24 Antigen 07/14/17 07/14/17 07/14/17 06:00 06:00 06:00 WBC 7.7 RBC 4.38 Hgb 14.0 Hct 41.3 MCV 94.3 MCH 32.0 MCHC 33.9 RDW 14.8 Plt Count 286 MPV 8.4 Sodium 136 Potassium 4.2 Chloride 101 Carbon Dioxide 27 Anion Gap 8 BUN 10 D Creatinine 0.9 Creat Clearance w eGFR > 60 POC Glucometer Random Glucose 241 H D Calcium 8.8 Total Bilirubin 0.4 D AST 31 D ALT 71 D Alkaline Phosphatase 122 H Total Protein 7.4 Albumin 3.7 D Urine Color Urine Appearance Urine pH Ur Specific [place] Urine Protein Urine Glucose (UA) Urine Ketones Urine Blood Urine Nitrite Urine Bilirubin Urine Urobilinogen Ur Leukocyte Esterase RPR Titer Nonreactive Hep C Ab Diagnostic HIV 1&2 Antibody Screen HIV P24 Antigen 07/14/17 07/14/17 07/14/17 06:00 06:00 06:22 WBC RBC Hgb Hct MCV MCH MCHC RDW Plt Count MPV Sodium Potassium Chloride Carbon Dioxide Anion Gap BUN Creatinine Creat Clearance w eGFR POC Glucometer 212 Random Glucose Calcium Total Bilirubin AST ALT Alkaline Phosphatase Total Protein Albumin Urine Color Urine Appearance Urine pH Ur Specific [place] Urine Protein Urine Glucose (UA) Urine Ketones Urine Blood Urine Nitrite Urine Bilirubin Urine Urobilinogen Ur Leukocyte Esterase RPR Titer Hep C Ab Diagnostic <0.1 HIV 1&2 Antibody Screen Negative HIV P24 Antigen Negative 07/14/17 07/14/17 07/14/17 11:21 16:49 21:28 WBC RBC Hgb Hct MCV MCH MCHC RDW Plt Count MPV Sodium Potassium Chloride Carbon Dioxide Anion Gap BUN Creatinine Creat Clearance w eGFR POC Glucometer 206 244 255 Random Glucose Calcium Total Bilirubin AST ALT Alkaline Phosphatase Total Protein Albumin Urine Color Urine Appearance Urine pH Ur Specific [place] Urine Protein Urine Glucose (UA) Urine Ketones Urine Blood Urine Nitrite Urine Bilirubin Urine Urobilinogen Ur Leukocyte Esterase RPR Titer Hep C Ab Diagnostic HIV 1&2 Antibody Screen HIV P24 Antigen 07/15/17 06:58 WBC RBC Hgb Hct MCV MCH MCHC RDW Plt Count MPV Sodium Potassium Chloride Carbon Dioxide Anion Gap BUN Creatinine Creat Clearance w eGFR POC Glucometer 225 Random Glucose Calcium Total Bilirubin AST ALT Alkaline Phosphatase Total Protein Albumin Urine Color Urine Appearance Urine pH Ur Specific [place] Urine Protein Urine Glucose (UA) Urine Ketones Urine Blood Urine Nitrite Urine Bilirubin Urine Urobilinogen Ur Leukocyte Esterase RPR Titer Hep C Ab Diagnostic HIV 1&2 Antibody Screen HIV P24 Antigen Labs noted Assessment: 07/15/17 11:50 Withdrawal symptoms Pmhx of HTN and DMT2 with hyperglycemia Plan: Continue detox Encouraged to drink lots of water HTN: unstable, continue present regimen, encouraged low sodium diet, continue to monitor DMT2 with hyperglycemia: uncontrolled, increase metformin to 850mg PO TID, encouraged adherence to diabetic diet and exercise as tolerated to lose weight, continue to monitor
[2017-07-15] MEDS: MAG HYDROX/AL HYDROX/SIMETH 30 ML UNIT-DOSE CUP PO PRN (12:16)
[2017-07-15] MEDS: ACETAMINOPHEN 325 MG TABLET (FP) PO PRN ×2 (12:16→22:07)
[2017-07-15] MEDS: cloNIDine HCL 0.1 MG TABLET PO SCH ×2 (13:24→22:05)
--- NOTE | 2017-07-15 20:38 | EKG ---
Test Reason : Blood Pressure : / mmHG Vent. Rate : 117 BPM Atrial Rate : 117 BPM P-R Int : 132 ms QRS Dur : 086 ms QT Int : 350 ms P-R-T Axes : 067 070 058 degrees QTc Int : 488 ms SINUS TACHYCARDIA POSSIBLE ANTERIOR INFARCT , AGE UNDETERMINED ABNORMAL ECG WHEN COMPARED WITH ECG OF 24-NOV-2016 18:23, NO SIGNIFICANT CHANGE WAS FOUND Confirmed by OPAL CHOWDHURY MD ([id number]) on 07/15/2017 8:38:32 PM Referred By: Confirmed By:OPAL CHOWDHURY MD
[2017-07-15] MEDS: THIAMINE HCL 100 MG TABLET (FP) PO SCH (22:05)
[2017-07-15] MEDS: NICOTINE POLACRILEX 2 MG GUM BC PRN (22:12)
[2017-07-15] MEDS: diphenhydrAMINE HCL 25 MG CAPSULE (FP) PO PRN (23:07)
[2017-07-16] MEDS: cloNIDine HCL 0.1 MG TABLET PO SCH ×3 (06:46→21:51)
[2017-07-16] MEDS: metFORMIN HCL 500 MG TABLET (FP) PO SCH (06:46)
[2017-07-16] MEDS: diazePAM 5 MG TABLET PO PRN ×2 (06:46→14:04)
[2017-07-16] MEDS: IBUPROFEN 600 MG TABLET (FP) PO PRN (06:48)
[2017-07-16] MEDS: NICOTINE POLACRILEX 2 MG GUM BC PRN ×2 (06:49→10:15)
[2017-07-16] MEDS: ALBUTEROL SO4 0.083% IH SOL 2.5 MG/3 ML VIAL.NEB. NEB SCH ×7 (06:54→22:07)
[2017-07-16] MEDS: INSULIN SLIDING SCALE (NOVOLOG) 1 VIAL SQ SCH ×4 (06:55→22:07)
[2017-07-16] MEDS ORDERED: INSULIN (NOVOLOG) ASPART 100 UNITS/ML 10ML VIAL ONE ×4 (07:17→21:42)
[2017-07-16] MEDS ORDERED: METHADONE HCL 5 MG TABLET (FOR DETOX USE ONLY) PO ONE (10:00)
--- NOTE | 2017-07-16 10:07 | PN ---
[facility] Progress Note (SOAP) Subjective: "I couldn't sleep last night. The psychiatrist said he would add Benadryl but he didn't." Patient c/o intractable diarrhea POA which is improving. He c/o tremor, night sweat, insomnia. He states that his BG and HTN are normally well controlled. Objective: 07/16/17 10:05 Vital Signs 07/16/17 07/16/17 06:23 09:52 Temperature 97 F L 97.9 F Pulse Rate 96 H 92 H Respiratory 20 18 Rate Blood Pressure 153/92 154/88 Laboratory Last Values WBC 7.7 K/mm3 (4.0-10.0) 07/14/17 06:00 RBC 4.38 M/mm3 (4.00-5.60) 07/14/17 06:00 Hgb 14.0 GM/dL (11.7-16.9) 07/14/17 06:00 Hct 41.3 % (35.4-49) 07/14/17 06:00 MCV 94.3 fl (80-96) 07/14/17 06:00 MCH 32.0 pg (25.7-33.7) 07/14/17 06:00 MCHC 33.9 g/dl (32.0-35.9) 07/14/17 06:00 RDW 14.8 % (11.9-15.9) 07/14/17 06:00 Plt Count 286 K/MM3 (134-434) 07/14/17 06:00 MPV 8.4 fl (7.5-11.1) 07/14/17 06:00 Sodium 136 mmol/L (136-145) 07/14/17 06:00 Potassium 4.2 mmol/L (3.5-5.1) 07/14/17 06:00 Chloride 101 mmol/L (98-107) 07/14/17 06:00 Carbon Dioxide 27 mmol/L (21-32) 07/14/17 06:00 Anion Gap 8 (8-16) 07/14/17 06:00 BUN 10 mg/dL (7-18) D 07/14/17 06:00 Creatinine 0.9 mg/dL (0.7-1.3) 07/14/17 06:00 Creat Clearance w eGFR > 60 (>60) 07/14/17 06:00 POC Glucometer 221 UNITS (80-120) 07/16/17 06:40 Random Glucose 241 mg/dL (74-106) H D 07/14/17 06:00 Calcium 8.8 mg/dL (8.5-10.1) 07/14/17 06:00 Total Bilirubin 0.4 mg/dL (0.2-1.0) D 07/14/17 06:00 AST 31 U/L (15-37) D 07/14/17 06:00 ALT 71 U/L (12-78) D 07/14/17 06:00 Alkaline Phosphatase 122 U/L (45-117) H 07/14/17 06:00 Total Protein 7.4 g/dl (6.4-8.2) 07/14/17 06:00 Albumin 3.7 g/dl (3.4-5.0) D 07/14/17 06:00 Urine Color Yellow 07/13/17 22:50 Urine Appearance Clear 07/13/17 22:50 Urine pH 7.0 (5.0-8.0) 07/13/17 22:50 Ur Specific [place] 1.031 (1.001-1.035) 07/13/17 22:50 Urine Protein Negative (NEGATIVE) 07/13/17 22:50 Urine Glucose (UA) 3+ (NEGATIVE) H 07/13/17 22:50 Urine Ketones Negative (NEGATIVE) 07/13/17 22:50 Urine Blood Negative (NEGATIVE) 07/13/17 22:50 Urine Nitrite Negative (NEGATIVE) 07/13/17 22:50 Urine Bilirubin Negative (NEGATIVE) 07/13/17 22:50 Urine Urobilinogen Negative mg/dL (0.2-1.0) 07/13/17 22:50 Ur Leukocyte Esterase Negative (NEGATIVE) 07/13/17 22:50 RPR Titer Nonreactive (NONREACTIVE) 07/14/17 06:00 Hep C Ab Diagnostic <0.1 s/co ratio (0.0-0.9) 07/14/17 06:00 HIV 1&2 Antibody Screen Negative 07/14/17 06:00 HIV P24 Antigen Negative 07/14/17 06:00 Patient a and o x 3 NAD Diaphoretic, fatigued CV s1, S2, RRR Lungs CTA b/l obese + mild tremor Assessment: withdrawal syndrome poorly controlled DM HTN Obesity 07/16/17 10:06 Plan: Continue Detox continue medications for preexisting conditions Encouraged patient to request Benadryl which had been ordered.
[2017-07-16] MEDS: amLODIPine BESYLATE 10 MG TABLET (FP) PO SCH (10:11)
[2017-07-16] MEDS: PRENATAL VITAMINS W/ FOLIC ACID TABLET (FP) PO SCH (10:13)
[2017-07-16] MEDS: ACETAMINOPHEN 325 MG TABLET (FP) PO PRN (10:13)
[2017-07-16] MEDS: LABETALOL HCL 100 MG TABLET (FP) PO SCH ×2 (10:13→21:51)
[2017-07-16] MEDS: LISINOPRIL 20 MG TABLET (FP) PO SCH ×2 (10:15→21:51)
[2017-07-16] MEDS: ALBUTEROL SO4 18 GM HFA INHALER IH PRN ×2 (10:16→17:43)
[2017-07-16] MEDS: THIAMINE HCL 100 MG TABLET (FP) PO SCH (21:50)
[2017-07-16] MEDS: diphenhydrAMINE HCL 25 MG CAPSULE (FP) PO PRN (21:51)
[2017-07-17] MEDS: ALBUTEROL SO4 0.083% IH SOL 2.5 MG/3 ML VIAL.NEB. NEB SCH ×7 (02:00→22:00)
[2017-07-17] MEDS: cloNIDine HCL 0.1 MG TABLET PO SCH ×3 (05:54→21:30)
[2017-07-17] MEDS: IBUPROFEN 600 MG TABLET (FP) PO PRN (06:42)
[2017-07-17] MEDS: INSULIN SLIDING SCALE (NOVOLOG) 1 VIAL SQ SCH ×4 (07:35→21:30)
[2017-07-17] MEDS ORDERED: INSULIN (NOVOLOG) ASPART 100 UNITS/ML 10ML VIAL ONE ×4 (07:44→21:31)
[2017-07-17] MEDS ORDERED: METHADONE HCL 10 MG TABLET (FOR DETOX USE ONLY) PO ONE (10:00)
[2017-07-17] MEDS: LABETALOL HCL 100 MG TABLET (FP) PO SCH ×2 (10:10→21:31)
[2017-07-17] MEDS: amLODIPine BESYLATE 10 MG TABLET (FP) PO SCH (10:10)
[2017-07-17] MEDS: LISINOPRIL 20 MG TABLET (FP) PO SCH ×2 (10:10→21:31)
[2017-07-17] MEDS: PRENATAL VITAMINS W/ FOLIC ACID TABLET (FP) PO SCH (10:11)
[2017-07-17] MEDS: ACETAMINOPHEN 325 MG TABLET (FP) PO PRN (10:12)
[2017-07-17] MEDS: NICOTINE POLACRILEX 2 MG GUM BC PRN (10:14)
--- NOTE | 2017-07-17 12:23 | PN ---
BHS Progress Note (SOAP) Subjective: Anxious, Sweating. Objective: PATIENT A & O X 3, OBSERVED AMBULATING ON UNIT. NO ACUTE DISTRESS. 07/17/17 12:22 Vital Signs Temperature 97.5 F L 07/17/17 09:41 Pulse Rate 91 H 07/17/17 09:41 Respiratory Rate 18 07/17/17 09:41 Blood Pressure 160/94 07/17/17 09:41 O2 Sat by Pulse Oximetry (%) Laboratory Tests 07/13/17 07/13/17 07/13/17 15:40 18:09 20:59 WBC RBC Hgb Hct MCV MCH MCHC RDW Plt Count MPV Sodium Potassium Chloride Carbon Dioxide Anion Gap BUN Creatinine Creat Clearance w eGFR POC Glucometer 243 243 233 Random Glucose Calcium Total Bilirubin AST ALT Alkaline Phosphatase Total Protein Albumin Urine Color Urine Appearance Urine pH Ur Specific [place] Urine Protein Urine Glucose (UA) Urine Ketones Urine Blood Urine Nitrite Urine Bilirubin Urine Urobilinogen Ur Leukocyte Esterase RPR Titer Hep C Ab Diagnostic HIV 1&2 Antibody Screen HIV P24 Antigen 07/13/17 07/14/17 07/14/17 22:50 06:00 06:00 WBC 7.7 RBC 4.38 Hgb 14.0 Hct 41.3 MCV 94.3 MCH 32.0 MCHC 33.9 RDW 14.8 Plt Count 286 MPV 8.4 Sodium 136 Potassium 4.2 Chloride 101 Carbon Dioxide 27 Anion Gap 8 BUN 10 D Creatinine 0.9 Creat Clearance w eGFR > 60 POC Glucometer Random Glucose 241 H D Calcium 8.8 Total Bilirubin 0.4 D AST 31 D ALT 71 D Alkaline Phosphatase 122 H Total Protein 7.4 Albumin 3.7 D Urine Color Yellow Urine Appearance Clear Urine pH 7.0 Ur Specific [place] 1.031 Urine Protein Negative Urine Glucose (UA) 3+ H Urine Ketones Negative Urine Blood Negative Urine Nitrite Negative Urine Bilirubin Negative Urine Urobilinogen Negative Ur Leukocyte Esterase Negative RPR Titer Hep C Ab Diagnostic HIV 1&2 Antibody Screen HIV P24 Antigen 07/14/17 07/14/17 07/14/17 06:00 06:00 06:00 WBC RBC Hgb Hct MCV MCH MCHC RDW Plt Count MPV Sodium Potassium Chloride Carbon Dioxide Anion Gap BUN Creatinine Creat Clearance w eGFR POC Glucometer Random Glucose Calcium Total Bilirubin AST ALT Alkaline Phosphatase Total Protein Albumin Urine Color Urine Appearance Urine pH Ur Specific [place] Urine Protein Urine Glucose (UA) Urine Ketones Urine Blood Urine Nitrite Urine Bilirubin Urine Urobilinogen Ur Leukocyte Esterase RPR Titer Nonreactive Hep C Ab Diagnostic <0.1 HIV 1&2 Antibody Screen Negative HIV P24 Antigen Negative 07/14/17 07/14/17 07/14/17 06:22 11:21 16:49 WBC RBC Hgb Hct MCV MCH MCHC RDW Plt Count MPV Sodium Potassium Chloride Carbon Dioxide Anion Gap BUN Creatinine Creat Clearance w eGFR POC Glucometer 212 206 244 Random Glucose Calcium Total Bilirubin AST ALT Alkaline Phosphatase Total Protein Albumin Urine Color Urine Appearance Urine pH Ur Specific [place] Urine Protein Urine Glucose (UA) Urine Ketones Urine Blood Urine Nitrite Urine Bilirubin Urine Urobilinogen Ur Leukocyte Esterase RPR Titer Hep C Ab Diagnostic HIV 1&2 Antibody Screen HIV P24 Antigen 07/14/17 07/15/17 07/15/17 21:28 06:58 11:36 WBC RBC Hgb Hct MCV MCH MCHC RDW Plt Count MPV Sodium Potassium Chloride Carbon Dioxide Anion Gap BUN Creatinine Creat Clearance w eGFR POC Glucometer 255 225 163 Random Glucose Calcium Total Bilirubin AST ALT Alkaline Phosphatase Total Protein Albumin Urine Color Urine Appearance Urine pH Ur Specific [place] Urine Protein Urine Glucose (UA) Urine Ketones Urine Blood Urine Nitrite Urine Bilirubin Urine Urobilinogen Ur Leukocyte Esterase RPR Titer Hep C Ab Diagnostic HIV 1&2 Antibody Screen HIV P24 Antigen 07/15/17 07/15/17 07/15/17 11:38 16:36 22:05 WBC RBC Hgb Hct MCV MCH MCHC RDW Plt Count MPV Sodium Potassium Chloride Carbon Dioxide Anion Gap BUN Creatinine Creat Clearance w eGFR POC Glucometer 110 169 225 Random Glucose Calcium Total Bilirubin AST ALT Alkaline Phosphatase Total Protein Albumin Urine Color Urine Appearance Urine pH Ur Specific [place] Urine Protein Urine Glucose (UA) Urine Ketones Urine Blood Urine Nitrite Urine Bilirubin Urine Urobilinogen Ur Leukocyte Esterase RPR Titer Hep C Ab Diagnostic HIV 1&2 Antibody Screen HIV P24 Antigen 07/16/17 07/16/17 07/16/17 06:40 11:44 16:20 WBC RBC Hgb Hct MCV MCH MCHC RDW Plt Count MPV Sodium Potassium Chloride Carbon Dioxide Anion Gap BUN Creatinine Creat Clearance w eGFR POC Glucometer 221 238 207 Random Glucose Calcium Total Bilirubin AST ALT Alkaline Phosphatase Total Protein Albumin Urine Color Urine Appearance Urine pH Ur Specific [place] Urine Protein Urine Glucose (UA) Urine Ketones Urine Blood Urine Nitrite Urine Bilirubin Urine Urobilinogen Ur Leukocyte Esterase RPR Titer Hep C Ab Diagnostic HIV 1&2 Antibody Screen HIV P24 Antigen 07/16/17 07/17/17 07/17/17 21:33 05:50 10:55 WBC RBC Hgb Hct MCV MCH MCHC RDW Plt Count MPV Sodium Potassium Chloride Carbon Dioxide Anion Gap BUN Creatinine Creat Clearance w eGFR POC Glucometer 210 213 244 Random Glucose Calcium Total Bilirubin AST ALT Alkaline Phosphatase Total Protein Albumin Urine Color Urine Appearance Urine pH Ur Specific [place] Urine Protein Urine Glucose (UA) Urine Ketones Urine Blood Urine Nitrite Urine Bilirubin Urine Urobilinogen Ur Leukocyte Esterase RPR Titer Hep C Ab Diagnostic HIV 1&2 Antibody Screen HIV P24 Antigen LABS NOTED. Assessment: 07/17/17 12:22 WITHDRAWAL SYMPTOMS. Plan: CONTINUE DETOX.
[2017-07-17] MEDS: MAG HYDROX/AL HYDROX/SIMETH 30 ML UNIT-DOSE CUP PO PRN (19:51)
[2017-07-17] MEDS: ALBUTEROL SO4 18 GM HFA INHALER IH PRN (21:28)
[2017-07-17] MEDS: THIAMINE HCL 100 MG TABLET (FP) PO SCH (21:32)
[2017-07-18] MEDS: IBUPROFEN 600 MG TABLET (FP) PO PRN (05:36)
[2017-07-18] MEDS: cloNIDine HCL 0.1 MG TABLET PO SCH (05:36)
[2017-07-18] MEDS: NICOTINE POLACRILEX 2 MG GUM BC PRN (05:54)
[2017-07-18] MEDS ORDERED: METHADONE HCL 5 MG TABLET (FOR DETOX USE ONLY) PO ONE (06:00)
[2017-07-18] MEDS: INSULIN SLIDING SCALE (NOVOLOG) 1 VIAL SQ SCH ×2 (07:40→11:41)
[2017-07-18] MEDS ORDERED: INSULIN (NOVOLOG) ASPART 100 UNITS/ML 10ML VIAL ONE ×2 (07:47→11:25)
--- NOTE | 2017-07-18 08:20 | DS ---
[facility] Detox Discharge Summary Admission Date: 07/13/17 Discharge Date: 07/18/17 - History Present History: Alcohol Dependence, Cocaine Dependence, Opioid Dependence - Physical Exam Results Vital Signs: Vital Signs Temperature 97.4 F L 07/18/17 06:05 Pulse Rate 98 H 07/18/17 06:05 Respiratory Rate 20 07/18/17 06:05 Blood Pressure 169/91 07/18/17 06:05 O2 Sat by Pulse Oximetry (%) - Treatment Hospital Course: Detox Protocol Followed, Detoxed Safely, Responded well, Discharged Condition Good - Medication Discharge Medications: Ambulatory Orders Lisinopril 40 mg PO BID 07/13/16 Albuterol 0.083% Nebulizer Bryanna [Ventolin 0.083% Nebulizer Soln -] 1 amp NEB Q4HPO amp 07/14/16 Albuterol Sulfate Inhaler - [Ventolin Hfa Inhaler -] 1 - 2 inh PO PRN PRN #1 inhaler 07/17/17 Albuterol Sulfate Inhaler - [Ventolin Hfa Inhaler -] 1 - 2 inh PO Q4H #1 inhaler 07/17/17 Amlodipine Besylate [Norvasc -] 10 mg PO DAILY #30 tablet 07/17/17 Labetalol HCl [Normodyne -] 100 mg PO BID #60 tablet 07/17/17 Lisinopril [Prinivil -] 40 mg PO BID 30 Days #60 tablet 07/17/17 metFORMIN HCL [Glucophage -] 500 mg PO BID #60 tab 07/17/17 - Diagnosis (1) Cocaine dependence Current Visit: Yes Status: Chronic Qualifiers: Substance use status: uncomplicated Qualified Code(s): F14.20 - Cocaine dependence, uncomplicated (2) Gout Current Visit: Yes Status: Chronic Qualifiers: Gout site: unspecified site Gout etiology: unspecified cause Chronicity: unspecified Qualified Code(s): M10.9 - Gout, unspecified (3) Opioid dependence with withdrawal Current Visit: Yes Status: Chronic (4) PCP dependence Current Visit: Yes Status: Chronic (5) Asthma Current Visit: Yes Status: Chronic Qualifiers: Asthma severity: mild Asthma persistence: intermittent Asthma complication type: uncomplicated Qualified Code(s): J45.20 - Mild intermittent asthma, uncomplicated (6) HTN (hypertension) Current Visit: Yes Status: Chronic Qualifiers: Hypertension type: essential hypertension Qualified Code(s): I10 - Essential (primary) hypertension (7) Nicotine dependence Current Visit: Yes Status: Chronic Qualifiers: Nicotine product type: cigarettes Substance use status: uncomplicated Qualified Code(s): F17.210 - Nicotine dependence, cigarettes, uncomplicated (8) Type 2 diabetes mellitus with hyperglycemia Current Visit: Yes Status: Chronic - AMA Did Patient Leave Against Medical Advice: No
[2017-07-18] MEDS: LISINOPRIL 20 MG TABLET (FP) PO SCH (09:49)
[2017-07-18] MEDS: amLODIPine BESYLATE 10 MG TABLET (FP) PO SCH (09:49)
[2017-07-18] MEDS: LABETALOL HCL 100 MG TABLET (FP) PO SCH (09:50)
[2017-07-18] MEDS: ALBUTEROL SO4 0.083% IH SOL 2.5 MG/3 ML VIAL.NEB. NEB SCH (09:51)
[2017-07-18] MEDS: ACETAMINOPHEN 325 MG TABLET (FP) PO PRN (09:51)
[2017-07-18] MEDS: PRENATAL VITAMINS W/ FOLIC ACID TABLET (FP) PO SCH (09:53)
[2017-07-18 13:19] VITALS: BP 117/75; PULSE 112; TEMP 96.2
== END 2017-07-18 13:25 | disposition home or self-care (01) | DRG 773 ==
LOC: YASAS 11:34 → Y3N 16:45
PROVIDERS: ADMIT Internal Medicine; ATTEND Internal Medicine
PROC: HZ2ZZZZ Detoxification Services for Substance Abuse Treatment (ICD-10-PCS; principal; 2017-07-13)
DX: F11.23 Opioid dependence with withdrawal (principal); F14.20 Cocaine dependence, uncomplicated; F16.20 Hallucinogen dependence, uncomplicated; F17.210 Nicotine dependence, cigarettes, uncomplicated; F19.24 Other psychoactive substance dependence with psychoactive substance-induced mood disorder; I10 Essential (primary) hypertension; J45.21 Mild intermittent asthma with (acute) exacerbation; E11.65 Type 2 diabetes mellitus with hyperglycemia; E78.5 Hyperlipidemia, unspecified; E66.9 Obesity, unspecified; G47.30 Sleep apnea, unspecified; G47.00 Insomnia, unspecified; M10.9 Gout, unspecified; Z68.41 Body mass index [BMI] 40.0-44.9, adult; Z79.4 Long term (current) use of insulin
CPT/HCPCS: 36415; 80053; 81003; 82962; 85027; 86593; 87389; 93005; 93010; 94640; J0735

== ENCOUNTER 2017-10-10 15:33 | Inpatient (IN) | payer OTHER ==
[2017-10-10 18:12] VITALS: BMI 37.2
[2017-10-10] MEDS ORDERED: MELATONIN 5 MG TABLETS PO PRN (22:00)
[2017-10-10] MEDS ORDERED: METHADONE HCL 10 MG TABLET (FOR DETOX USE ONLY) PO ONE ×2 (22:00→23:38)
--- NOTE | 2017-10-10 23:13 | HP ---
COWS - Scale Resting Pulse: 1= MD 81-100 Sweatin=Flushed/Facial Moisture Restless Observation: 1= Difficult to Sit Still Pupil Size: 0= Normal to Room Light Bone or Joint Aches: 1= Mild Discomfort Runny Nose/ Eye Tearin= Runny Nose/Eyes GI Upset > 30mins: 1= Stomach Cramp Tremor Observation: 2= Slight Tremor Visible Yawning Observation: 1= 1-2x During Session Anxiety or Irritability: 1=Feels Anxious/Irritable Goose Flesh Skin: 0=Smooth Skin COWS Score: 12 CIWA Score - CIWA Score Nausea/Vomitin-No Nausea/No Vomiting Muscle Tremors: 2 Anxiety: 3 Agitation: 3 Paroxysmal Sweats: 2 Orientation: 0-Oriented Tacttile Disturbances: 1-Very Mild Itch/Numbness Auditory Disturbances: 0-None Visual Disturbances: 1-Very Mild Sensitivity Headache: 0-None Present CIWA-Ar Total Score: 12 Admission ROS S - HPI Chief Complaint: opioid and alcohol withdrawal symptoms Allergies/Adverse Reactions: Allergies Allergy/AdvReac Type Severity Reaction Status Date / Time almond oil [[place] Oil] Allergy Severe Hives Verified 10/10/17 21:34 No Known Drug Allergies Allergy Verified 10/10/17 21:34 ALMONDS Allergy Severe Hives Uncoded 10/10/17 21:34 History of Present Illness: 52 yo male with hx nicotine, heroin, PCP, and alcohol dependence is here seeking detox. PMHX: abdominal hernia, gout, HTN, [id number] dependent, asthma. Denies psychiatric hx. Denies suicidal / homicidal ideation or suicide attempt. Longest period of sobriety 2 years. Patient reports Reports went to a drug rehab program [facility], patient was discharge on 09/21/17 with 15 days of of suboxone, as per patient upon discharge he was schedule to attend long-term treatment at [facility] in [facility] today and was not accepted with because utox positive for benzo, as per patient last use Suboxone on 10/07/17 and continue heroin use. Reference #: [id number] Others' Prescriptions Patient Name: Usama Loera Date: 1965 Address: [address] [place] [address] Sex: Male Rx Written Rx Dispensed Drug Quantity Days Supply Prescriber Name 09/21/2017 09/22/2017 suboxone 8 mg-2 mg sl film 15 15 Chon Walton MD 09/21/2017 09/22/2017 suboxone 2 mg-0.5 mg sl film 30 15 Chon Walton MD 09/10/2017 09/10/2017 suboxone 8 mg-2 mg sl film 14 14 Chon Walton MD 07/04/2017 07/04/2017 suboxone 12 mg-3 mg sl film 10 10 Louis Paredes MD 06/26/2017 06/30/2017 suboxone 2 mg-0.5 mg sl film 4 4 Louis Paredes MD 06/26/2017 06/28/2017 suboxone 2 mg-0.5 mg sl film 2 1 Louis Paredes MD 06/26/2017 06/26/2017 suboxone 2 mg-0.5 mg sl film 3 1 Louis Paredes MD Patient Name: Usama Loera Date: 1965 Address: [address] [place] [address] Sex: Male Rx Written Rx Dispensed Drug Quantity Days Supply Prescriber Name 08/17/2017 08/17/2017 chlordiazepoxide 25 mg capsule 26 5 O' CelestinolyLindsey Gallo Patient Name: Usama Loera Date: 1965 Address: [address] [place] [address] Sex: Male Rx Written Rx Dispensed Drug Quantity Days Supply Prescriber Name 08/08/2017 08/10/2017 zolpidem tartrate 5 mg tablet 30 30 Sai Velázquez MD Patient Name: Usama Loera Date: 06/17/1964 Address: [address] [place] [address] Sex: Male Rx Written Rx Dispensed Drug Quantity Days Supply Prescriber Name 03/12/2017 03/13/2017 chlordiazepoxide 25 mg capsule 26 5 Onua, Margi Wolff NP Patient Name: Usama Loera Date: 1965 Address: [address] [place] [address] Sex: Male Rx Written Rx Dispensed Drug Quantity Days Supply Prescriber Name 03/06/2017 03/07/2017 suboxone 8 mg-2 mg sl film 14 7 Miguel Lemus MD Patient Name: Usama Loera Date: 1965 Address: [address] [place] [address] Sex: Male Rx Written Rx Dispensed Drug Quantity Days Supply Prescriber Name 10/11/2016 10/11/2016 buprenorphine-naloxone 8-2 mg sl tablet 7 7 Delfina Adi Exam Limitations: No Limitations - Ebola screening Have you traveled outside of the country in the last 21 days: No (N) Have you had contact with anyone from an Ebola affected area: No Have you been sick,other than usual withdrawal symptoms: No Do you have a fever: No - Review of Systems Constitutional: Chills, Changes in sleep EENT: reports: Blurred Vision (wears glasses), Nose Congestion Respiratory: reports: SOB with Exertion Cardiac: reports: No Symptoms Reported GI: reports: Poor Fluid Intake : reports: No Symptoms Reported Musculoskeletal: reports: Back Pain, Joint Pain Integumentary: reports: No Symptoms Reported Neuro: reports: No Symptoms reported Endocrine: reports: Increased Thirst Hematology: reports: No Symptoms Reported Psychiatric: reports: Orientated x3, Depressed Other Systems: Reviewed and Negative Patient History - Patient Medical History Hx Anemia: No Hx Asthma: Yes (Uses MDI PRN and DuoNeb PRN.) Hx Chronic Obstructive Pulmonary Disease (COPD): No Hx Cancer: No Hx Cardiac Disorders: No Hx Congestive Heart Failure: No Hx Hypertension: Yes (On meds. Has not taken in > 1 month.) Hx Hypercholesterolemia: Yes Hx Pacemaker: No HX Cerebrovascular Accident: No Hx Seizures: No Hx Dementia: No Hx Diabetes: Yes (Meds. Took Insulin in past,however reports that med. provider stopped.) Hx Gastrointestinal Disorders: Yes (Hsitory of Diverticulitis. Abdominal hernia ) Hx Liver Disease: No Hx Genitourinary Disorders: No Hx Sexually Transmitted Disorders: No Hx Renal Disease (ESRD): No Hx Thyroid Disease: No Hx Human Immunodeficiency Virus (HIV): No (Last Tested: approx. 1 month: NEGATIVE.) Hx Hepatitis C: No (Last Tested: 2016: NEGATIVE.) Hx Depression: Yes Hx Suicide Attempt: No (PATIENT DENIES CURRENT SI / HI.) Hx Bipolar Disorder: No Hx Schizophrenia: No - Patient Surgical History Past Surgical History: Yes Hx Neurologic Surgery: No Hx Cataract Extraction: No Hx Cardiac Surgery: No Hx Lung Surgery: No Hx Breast Surgery: No Hx Breast Biopsy: No Hx Abdominal Surgery: Yes (colostomy reversal 02/12/15, hernia) Hx Appendectomy: No Hx Cholecystectomy: No Hx Genitourinary Surgery: No Hx Section: No Hx Orthopedic Surgery: Yes (left rotator cuff surgery 2 years ago) Other Surgical History: Umbilical Hernia Repair: 2014 Anesthesia Reaction: No - PPD History Previous Implant?: Yes Documented Results: Negative w/proof Date: 11/26/16 Results: 0 mm PPD to be Administered?: No - Smoking Cessation Smoking history: Current every day smoker Have you smoked in the past 12 months: Yes Aproximately how many cigarettes per day: 5 Cigars Per Day: 0 Hx Chewing Tobacco Use: No Initiated information on smoking cessation: Yes 'Breaking Loose' booklet given: 10/10/17 - Substance & Tx. History Hx Alcohol Use: Yes Hx Substance Use: Yes Substance Use Type: Alcohol, Heroin Hx Substance Use Treatment: Yes ([facility] September 2017) - Substances Abused Heroin Route: Inhalation Frequency: Daily Amount used: 5 BAGS Age of first use: 29 Date of Last Use: 10/10/17 Alcohol Route: Oral Frequency: Daily Amount used: LIQUOR- 3 PINTS Age of first use: 21 Date of Last Use: 10/10/17 Family Disease History - Family Disease History Family Disease History: Diabetes: Mother, CA: Father (), Respiratory: Father Admission Physical Exam [facility] - Vital Signs Vital Signs: Vital Signs - 24 hr 10/10/17 18:09 Temperature 97.7 F Pulse Rate 81 Respiratory 16 Rate Blood Pressure 144/82 - Physical General Appearance: Yes: Obese, Anxious HEENTM: Yes: EOMI, Hearing grossly Normal, Normal ENT Inspection, Pharynx Normal , Tm's normal, Other (poor dentition) Respiratory: Yes: Chest Non-Tender, Lungs Clear, No Respiratory Distress, No Accessory Muscle Use, Wheezing Neck: Yes: Within Normal Limits Breast: Yes: Breast Exam Deferred Cardiology: Yes: Regular Rhythm, Regular Rate Abdominal: Yes: Normal Bowel Sounds, Non Tender, Soft, Protuberent, Hernia, Surgical Scar Genitourinary: Yes: Within Normal Limits Back: Yes: Normal Inspection Musculoskeletal: Yes: full range of Motion, Gait Steady, Pelvis Stable Extremities: Yes: Normal Capillary Refill, Normal Inspection, Normal Range of Motion, Non-Tender Neurological: Yes: materials management manager II-XII NML intact, Fully Oriented, Alert, Motor Strength 5/5, Depressed Affect Integumentary: Yes: Normal Color, Warm, Diaphoresis Lymphatic: Yes: Within Normal Limits - Diagnostic (1) Wheezing Current Visit: Yes Status: Acute (2) Abdominal hernia Current Visit: Yes Status: Chronic Qualifiers: Hernia type: unspecified Obstruction and gangrene presence: without obstruction or gangrene Recurrence: not specified as recurrent Qualified Code(s): K46.9 - Unspecified abdominal hernia without obstruction or gangrene (3) Asthma Current Visit: Yes Status: Chronic Qualifiers: Asthma severity: mild Asthma persistence: intermittent Asthma complication type: uncomplicated Qualified Code(s): J45.20 - Mild intermittent asthma, uncomplicated (4) Essential hypertension Current Visit: Yes Status: Chronic (5) Gout Current Visit: Yes Status: Chronic Qualifiers: Gout site: unspecified site Gout etiology: unspecified cause Chronicity: unspecified Qualified Code(s): M10.9 - Gout, unspecified (6) HTN (hypertension) Current Visit: Yes Status: Chronic Qualifiers: Hypertension type: essential hypertension Qualified Code(s): I10 - Essential (primary) hypertension (7) Hyperlipidemia Current Visit: Yes Status: Chronic Qualifiers: Hyperlipidemia type: unspecified Qualified Code(s): E78.5 - Hyperlipidemia , unspecified (8) Obesity Current Visit: Yes Status: Chronic Qualifiers: Obesity type: unspecified obesity type Qualified Code(s): E66.01 - Morbid ( severe) obesity due to excess calories (9) Type 2 diabetes mellitus with hyperglycemia Current Visit: Yes Status: Chronic Qualifiers: Diabetes mellitus marine oil terminal superintendent insulin use: without marine oil terminal superintendent use Qualified Code(s): E11.65 - Type 2 diabetes mellitus with hyperglycemia (10) Nicotine dependence Current Visit: No Status: Chronic Qualifiers: Nicotine product type: cigarettes Substance use status: uncomplicated Qualified Code(s): F17.210 - Nicotine dependence, cigarettes, uncomplicated (11) PCP dependence Current Visit: Yes Status: Chronic (12) Alcohol dependence with uncomplicated withdrawal Current Visit: Yes Status: Acute (13) Opioid dependence with withdrawal Current Visit: Yes Status: Acute Cleared for Admission [facility] - Detox or Rehab [facility] Level of Care: Medically Managed Detox Regimen/Protocol: Methadone/Librium S Breath Alcohol Content Breath Alcohol Content: 0 Urine Drug Screen - Results Drug Screen Negative: No Urine Drug Screen Results: OPI-Opiates, PCP-Phencyclidine, BZO-Benzodiazepines
[2017-10-10] MEDS ORDERED: IBUPROFEN 400 MG TABLET (FP) PO PRN (23:23)
[2017-10-10] MEDS ORDERED: hydrOXYzine PAMOATE 50 MG CAPSULE (FP) PO PRN (23:23)
[2017-10-10] MEDS ORDERED: MAG HYDROX/AL HYDROX/SIMETH 30 ML UNIT-DOSE CUP PO PRN (23:23)
[2017-10-10] MEDS ORDERED: LOPERAMIDE HCL 2 MG CAPSULE PO PRN (23:23)
[2017-10-10] MEDS ORDERED: P-EPHED 60MG/TRIPROLIDI 2.5MG TABLET PO PRN (23:23)
[2017-10-10] MEDS ORDERED: ACETAMINOPHEN 325 MG TABLET (FP) PO PRN (23:23)
[2017-10-10] MEDS ORDERED: MENTHOL/PHENOL 1 EACH UD MM PRN (23:23)
[2017-10-10] MEDS ORDERED: MAGNESIUM CITRATE 300 ML BOTTLE PO PRN (23:23)
[2017-10-10] MEDS ORDERED: MAGNESIUM HYDROX 2400MG/30ML ORAL SUSPENSION 30 ML CUP PO PRN (23:23)
[2017-10-10] MEDS ORDERED: guaiFENesin/D-METHORPHAN HB 10 ML UNIT-DOSE CUPS PO PRN (23:23)
[2017-10-10] MEDS ORDERED: chlordiazePOXIDE HCL 25 MG CAPSULE PO PRN (23:38)
[2017-10-10] MEDS ORDERED: chlordiazePOXIDE HCL 25 MG CAPSULE PO ONE (23:38)
[2017-10-11] MEDS ORDERED: METHADONE HCL 10 MG TABLET (FOR DETOX USE ONLY) PO ONE ×3 (00:35→23:00)
[2017-10-11] MEDS: ALBUTEROL SO4 2.5/IPRATROPIUM 0.5 INH SOL 3 ML VIAL.NEB. NEB PRN (01:01)
[2017-10-11] MEDS: chlordiazePOXIDE HCL 25 MG CAPSULE PO SCH ×7 (01:05→22:29)
[2017-10-11 06:29] LABS: URINE APPEARANCE CLOUDY; URINE BILIRUBIN NEGATIVE (<2.0 mg/dL); URINE BLOOD NEGATIVE (NEGATIVE); URINE COLOR AMBER; URINE GLUCOSE (UA) 3+ (NEGATIVE); URINE KETONE NEGATIVE (NEGATIVE); URINE NITRITE NEGATIVE (NEGATIVE); URINE UROBILINOGEN NEGATIVE mg/dL (0.2-1.0)
[2017-10-11 06:31] LABS: URINE LEUK ESTERASE 1+ (NEGATIVE); URINE PROTEIN 1+ (NEGATIVE)
[2017-10-11 07:50] LABS: EPI CELLS FEW /HPF (FEW); URINE BACTERIA MANY /hpf (NONE SEEN); URINE HYALINE CAST 14 /lpf; URINE MUCUS MODERATE
[2017-10-11] MEDS: ALBUTEROL SO4 18 GM HFA INHALER IH SCH ×4 (09:00→21:20)
[2017-10-11] MEDS ORDERED: METHADONE HCL 10 MG TABLET (FOR DETOX USE ONLY) PO SCH (10:00)
--- NOTE | 2017-10-11 10:25 | PN ---
S CIWA - CIWA Score Nausea/Vomitin Muscle Tremors: 3 Anxiety: 3 Agitation: 3 Paroxysmal Sweats: 2 Orientation: 0-Oriented Tacttile Disturbances: 1-Very Mild Itch/Numbness Auditory Disturbances: 1-Very Mild Visual Disturbances: 0-None Headache: 2-Mild CIWA-Ar Total Score: 18 [facility] COWS - Scale Resting Pulse: 1= ND 81-100 Sweatin= Chills/Flushing Restless Observation: 3= Extraneous Movement Pupil Size: 1= Pupils >than Normal Bone or Joint Aches: 2= Severe Diffuse Aches Runny Nose/ Eye Tearin= Runny Nose/Eyes GI Upset > 30mins: 2= Nausea/Diarrhea Tremor Observation of Outstretched Hands: 2= Slight Tremor Visible Yawning Observation: 1= 1-2x During Session Anxiety or Irritability: 2=Irritable/Anxious Goose Flesh Skin: 0=Smooth Skin COWS Score: 17 S Progress Note (SOAP) Subjective: alert,irritable,anxious,interrupted sleep,tremor,pain in the body,back Objective: 10/11/17 10:22 Vital Signs Temperature 98.2 F 10/11/17 09:15 Pulse Rate 106 H 10/11/17 09:15 Respiratory Rate 18 10/11/17 09:15 Blood Pressure 153/90 10/11/17 09:15 O2 Sat by Pulse Oximetry (%) ekg sinus tachycardia 110/min prolong qt 360/487 Laboratory Last Values POC Glucometer 294 UNITS (80-120) 10/11/17 05:48 Urine Color Dot 10/10/17 22:00 Urine Appearance Cloudy 10/10/17 22:00 Urine pH 5.0 (5.0-8.0) D 10/10/17 22:00 Ur Specific [place] 1.036 (1.001-1.035) H 10/10/17 22:00 Urine Protein 1+ (NEGATIVE) H 10/10/17 22:00 Urine Glucose (UA) 3+ (NEGATIVE) H 10/10/17 22:00 Urine Ketones Negative (NEGATIVE) 10/10/17 22:00 Urine Blood Negative (NEGATIVE) 10/10/17 22:00 Urine Nitrite Negative (NEGATIVE) 10/10/17 22:00 Urine Bilirubin Negative (<2.0 mg/dL) 10/10/17 22:00 Urine Urobilinogen Negative mg/dL (0.2-1.0) 10/10/17 22:00 Ur Leukocyte Esterase 1+ (NEGATIVE) H 10/10/17 22:00 Urine WBC (Auto) 8 /hpf (3-5) 10/10/17 22:00 Urine RBC (Auto) 5 /hpf (0-3) 10/10/17 22:00 Ur Epithelial Cells Few /HPF (FEW) 10/10/17 22:00 Urine Bacteria Many /hpf (NONE SEEN) 10/10/17 22:00 Hyaline Casts 14 /lpf 10/10/17 22:00 Urine Mucus Moderate 10/10/17 22:00 labs pending Assessment: 10/11/17 10:24 withdrawal symptom Plan: continue detox,bgm monitoring,insulin coverage
[2017-10-11] MEDS: NICOTINE 14 MG/24 HOURS TOPICAL PATCH TD SCH (10:29)
[2017-10-11] MEDS: PRENATAL VITAMINS W/ FOLIC ACID TABLET (FP) PO SCH (10:29)
[2017-10-11] MEDS: NAPROXEN 500 MG TABLET (FP) PO SCH ×2 (10:29→22:29)
[2017-10-11] MEDS: HYDROCHLOROTHIAZIDE 12.5 MG CAPSULE (FP) PO SCH (10:29)
[2017-10-11] MEDS: ASPIRIN 81 MG CHEWABLE TABLETS PO SCH (10:29)
[2017-10-11] MEDS: GABAPENTIN 400 MG CAPSULE (FP) PO SCH ×2 (10:29→22:29)
[2017-10-11] MEDS: SERTRALINE HCL 50 MG TABLET (FP) PO SCH (10:30)
[2017-10-11] MEDS: NICOTINE POLACRILEX 2 MG GUM BC PRN (10:30)
--- NOTE | 2017-10-11 11:42 | EKG ---
Test Reason : Blood Pressure : / mmHG Vent. Rate : 110 BPM Atrial Rate : 110 BPM P-R Int : 124 ms QRS Dur : 104 ms QT Int : 360 ms P-R-T Axes : 071 070 068 degrees QTc Int : 487 ms SINUS TACHYCARDIA OTHERWISE NORMAL ECG WHEN COMPARED WITH ECG OF 13-JUL-2017 18:25, BORDERLINE CRITERIA FOR ANTERIOR INFARCT ARE NO LONGER PRESENT Confirmed by ADRIANNA CHISHOLM MD ([id number]) on 10/11/2017 11:41:37 AM Referred By: Confirmed By:ADRIANNA CHISHOLM MD
[2017-10-11] MEDS ORDERED: INSULIN (NOVOLOG) ASPART 100 UNITS/ML 10ML VIAL ONE ×3 (12:46→22:28)
[2017-10-11] MEDS: VITAMIN E 400 INTERNATIONAL-UNITS CAPSULE (FP) PO SCH (12:47)
[2017-10-11] MEDS: TOLNAFTATE 1% CREAM 15 GM TUBE TP SCH ×2 (12:47→22:33)
[2017-10-11] MEDS: INSULIN (NOVOLOG) ASPART 100 UNITS/ML 10ML VIAL SQ SCH ×3 (12:52→22:26)
--- NOTE | 2017-10-11 13:31 | CONSULT ---
[facility] Psychiatric Consult - Data Date of interview: 10/11/17 Admission source: [facility] Identifying data: This is 89 years old obese male, single, father of one, homeless, on SSI, with no history of psychiatric hospitalizations, with history of nicotine, heroin, PCP, and alcohol dependence is here seeking detox. Patient reporting withdrawal symptoms. Substance Abuse History: Urine Drug Screen Results: OPI-Opiates, PCP- Phencyclidine, BZO-Benzodiazepines. Smoking history: Current every day smoker. Have you smoked in the past 12 months: Yes. Aproximately how many cigarettes per day: 5. Cigars Per Day: 0. Hx Chewing Tobacco Use: No. Initiated information on smoking cessation: Yes. 'Breaking Loose' booklet given: . - Substance & Tx. History. Hx Alcohol Use: Yes. Hx Substance Use: Yes. Substance Use Type: Alcohol, Heroin. Hx Substance Use Treatment: Yes ( [facility] Early September 2017). - Substances Abused. Heroin. Route: Inhalation. Frequency: Daily. Amount used: 5 BAGS. Age of first use: 29. Date of Last Use: 10/10/17. Alcohol. Route: Oral. Frequency: Daily. Amount used: LIQUOR- 3 PINTS. Age of first use: 21. Date of Last Use: 10/10/17 Medical History: Abdominal hernia, gout, HTN, DM-II, asthma, COPD, hYPERLIPIDEMIA, HTN Psychiatric History: Patient reports history of anxiety, insomnia , reports taking prior to admission: Zoloft 50mg poqd. Ambien 10mg po qhs Physical/Sexual Abuse/Trauma History: Denies Additional Comment: Urine Drug Screen Results: OPI-Opiates, PCP-Phencyclidine, BZO-Benzodiazepines. Zoloft 50mg poqd. Ambien 10mg po qhs Mental Status Exam - Mental Status Exam Alert and Oriented to: Person Cognitive Function: Fair Patient Appearance: Unkempt Mood: Apprehensive Affect: Inappropriate Patient Behavior: Cooperative Speech Pattern: Appropriate Voice Loudness: Normal Thought Process: Goal Oriented Thought Disorder: Being Controlled Hallucinations: Denies Suicidal Ideation: Denies Homicidal Ideation: Denies Insight/Judgement: Fair Sleep: Difficulty falling asleep Appetite: Weight gain Muscle strength/Tone: Mild Hypotonicity Gait/Station: Shuffling Additional Comments: Zoloft 50mg poqd. Ambien 10mg po qhs Psychiatric Findings - Problem List ([place] 1, 2,3) (1) Alcohol dependence with uncomplicated withdrawal Current Visit: Yes Status: Acute (2) Opioid dependence with withdrawal Current Visit: Yes Status: Acute (3) PCP dependence Current Visit: Yes Status: Chronic (4) Alcohol dependence Current Visit: No Status: Acute (5) Alcohol-induced mood disorder Current Visit: No Status: Acute (6) DVT prophylaxis Current Visit: No Status: Acute (7) Heroin abuse Current Visit: No Status: Acute (8) Opioid dependence Current Visit: No Status: Acute (9) Phencyclidine (PCP) use disorder, mild, abuse Current Visit: No Status: Acute - Initial Treatment Plan Initial Treatment Plan: Zoloft 50mg poqd. Ambien 10mg po qhs
[2017-10-11] MEDS ORDERED: ZOLPIDEM TARTRATE 5 MG TABLET PO PRN (22:00)
[2017-10-11] MEDS: ATORVASTATIN CA 10 MG TABLET (FP) PO SCH (22:29)
[2017-10-11] MEDS: THIAMINE HCL 100 MG TABLET (FP) PO SCH (22:29)
[2017-10-11] MEDS: ZOLPIDEM TARTRATE 5 MG TABLET PO PRN (22:50)
[2017-10-12] MEDS: chlordiazePOXIDE 5 MG CAPSULE PO SCH ×4 (05:30→22:22)
[2017-10-12] MEDS: INSULIN (NOVOLOG) ASPART 100 UNITS/ML 10ML VIAL SQ SCH ×4 (05:59→21:51)
[2017-10-12] MEDS: ALBUTEROL SO4 18 GM HFA INHALER IH SCH ×4 (07:07→22:21)
[2017-10-12] MEDS ORDERED: INSULIN (NOVOLOG) ASPART 100 UNITS/ML 10ML VIAL ONE ×4 (07:35→22:43)
[2017-10-12] MEDS ORDERED: METHADONE HCL 5 MG TABLET (FOR DETOX USE ONLY) PO SCH (10:00)
[2017-10-12] MEDS ORDERED: METHADONE HCL 10 MG TABLET (FOR DETOX USE ONLY) PO ONE (10:00)
[2017-10-12 10:22] LABS: HEMATOCRIT 41.3 % (35.4-49); HEMOGLOBIN 13.6 GM/dL (11.7-16.9); MCH 30.8 pg (25.7-33.7); MCHC 33.1 g/dl (32.0-35.9); MEAN CELL VOLUME 93.2 fl (80-96); PLATELET COUNT 249 K/MM3 (134-434); RBC 4.43 M/mm3 (4.00-5.60); RDW 14.4 % (11.9-15.9); WHITE BLOOD COUNT 7.5 K/mm3 (4.0-10.0)
[2017-10-12 10:49] LABS: CHLORIDE 99 mmol/L (98-107); POTASSIUM 4.2 mmol/L (3.5-5.1); SODIUM 136 mmol/L (136-145)
[2017-10-12] MEDS: HYDROCHLOROTHIAZIDE 12.5 MG CAPSULE (FP) PO SCH (10:59)
[2017-10-12] MEDS: ASPIRIN 81 MG CHEWABLE TABLETS PO SCH (10:59)
[2017-10-12] MEDS: SERTRALINE HCL 50 MG TABLET (FP) PO SCH (10:59)
[2017-10-12] MEDS: NAPROXEN 500 MG TABLET (FP) PO SCH ×2 (10:59→22:22)
[2017-10-12] MEDS: GABAPENTIN 400 MG CAPSULE (FP) PO SCH ×2 (10:59→22:22)
[2017-10-12] MEDS: PRENATAL VITAMINS W/ FOLIC ACID TABLET (FP) PO SCH (10:59)
[2017-10-12] MEDS: TOLNAFTATE 1% CREAM 15 GM TUBE TP SCH ×2 (11:00→22:44)
[2017-10-12] MEDS: VITAMIN E 400 INTERNATIONAL-UNITS CAPSULE (FP) PO SCH (11:00)
[2017-10-12] MEDS: NICOTINE 14 MG/24 HOURS TOPICAL PATCH TD SCH (11:00)
[2017-10-12 11:32] LABS: ALBUMIN 3.9 g/dl (3.4-5.0); ALK PHOS 189 U/L (45-117); ANION GAP 6 (8-16); BILIRUBIN,TOTAL 0.3 mg/dL (0.2-1.0); BLOOD UREA NITROGEN 14 mg/dL (7-18); CALCIUM 9.1 mg/dL (8.5-10.1); CO2 31 mmol/L (21-32); CREATININE 0.8 mg/dL (0.7-1.3); GLUCOSE,RANDOM 275 mg/dL (74-106); SGOT/AST 35 U/L (15-37); SGPT/ALT 82 U/L (12-78); TOT PROT 7.8 g/dl (6.4-8.2)
--- NOTE | 2017-10-12 12:14 | PN ---
[facility] CIWA - CIWA Score Nausea/Vomitin Muscle Tremors: 3 Anxiety: 2 Agitation: 2 Paroxysmal Sweats: 1-Minimal Palms Moist Orientation: 0-Oriented Tacttile Disturbances: 1-Very Mild Itch/Numbness Auditory Disturbances: 1-Very Mild Visual Disturbances: 0-None Headache: 2-Mild CIWA-Ar Total Score: 15 [facility] COWS - Scale Resting Pulse: 1= [place] 81-100 Sweatin= Chills/Flushing Restless Observation: 3= Extraneous Movement Pupil Size: 1= Pupils >than Normal Bone or Joint Aches: 2= Severe Diffuse Aches Runny Nose/ Eye Tearin= Runny Nose/Eyes GI Upset > 30mins: 2= Nausea/Diarrhea Tremor Observation of Outstretched Hands: 2= Slight Tremor Visible Yawning Observation: 1= 1-2x During Session Anxiety or Irritability: 2=Irritable/Anxious Goose Flesh Skin: 0=Smooth Skin COWS Score: 17 [facility] Progress Note (SOAP) Subjective: alert,irritable,anxious,tremor,pain in the body and back Objective: 10/12/17 12:11 Vital Signs Temperature 98.1 F 10/12/17 11:34 Pulse Rate 98 H 10/12/17 11:34 Respiratory Rate 20 10/12/17 11:34 Blood Pressure 131/76 10/12/17 11:34 O2 Sat by Pulse Oximetry (%) 10/12/17 12:12 Laboratory Last Values WBC 7.5 K/mm3 (4.0-10.0) 10/12/17 07:30 RBC 4.43 M/mm3 (4.00-5.60) 10/12/17 07:30 Hgb 13.6 GM/dL (11.7-16.9) 10/12/17 07:30 Hct 41.3 % (35.4-49) 10/12/17 07:30 MCV 93.2 fl (80-96) 10/12/17 07:30 MCH 30.8 pg (25.7-33.7) 10/12/17 07:30 MCHC 33.1 g/dl (32.0-35.9) 10/12/17 07:30 RDW 14.4 % (11.9-15.9) 10/12/17 07:30 Plt Count 249 K/MM3 (134-434) 10/12/17 07:30 MPV 8.0 fl (7.5-11.1) 10/12/17 07:30 Sodium 136 mmol/L (136-145) 10/12/17 07:30 Potassium 4.2 mmol/L (3.5-5.1) 10/12/17 07:30 Chloride 99 mmol/L (98-107) 10/12/17 07:30 Carbon Dioxide 31 mmol/L (21-32) 10/12/17 07:30 Anion Gap 6 (8-16) L 10/12/17 07:30 BUN 14 mg/dL (7-18) D 10/12/17 07:30 Creatinine 0.8 mg/dL (0.7-1.3) 10/12/17 07:30 Creat Clearance w eGFR > 60 (>60) 10/12/17 07:30 POC Glucometer 380 UNITS (80-120) 10/12/17 11:41 Random Glucose 275 mg/dL (74-106) H 10/12/17 07:30 Calcium 9.1 mg/dL (8.5-10.1) 10/12/17 07:30 Total Bilirubin 0.3 mg/dL (0.2-1.0) D 10/12/17 07:30 AST 35 U/L (15-37) 10/12/17 07:30 ALT 82 U/L (12-78) H 10/12/17 07:30 Alkaline Phosphatase 189 U/L (45-117) H D 10/12/17 07:30 Total Protein 7.8 g/dl (6.4-8.2) 10/12/17 07:30 Albumin 3.9 g/dl (3.4-5.0) 10/12/17 07:30 Urine Color Dot 10/10/17 22:00 Urine Appearance Cloudy 10/10/17 22:00 Urine pH 5.0 (5.0-8.0) D 10/10/17 22:00 Ur Specific [place] 1.036 (1.001-1.035) H 10/10/17 22:00 Urine Protein 1+ (NEGATIVE) H 10/10/17 22:00 Urine Glucose (UA) 3+ (NEGATIVE) H 10/10/17 22:00 Urine Ketones Negative (NEGATIVE) 10/10/17 22:00 Urine Blood Negative (NEGATIVE) 10/10/17 22:00 Urine Nitrite Negative (NEGATIVE) 10/10/17 22:00 Urine Bilirubin Negative (<2.0 mg/dL) 10/10/17 22:00 Urine Urobilinogen Negative mg/dL (0.2-1.0) 10/10/17 22:00 Ur Leukocyte Esterase 1+ (NEGATIVE) H 10/10/17 22:00 Urine WBC (Auto) 8 /hpf (3-5) 10/10/17 22:00 Urine RBC (Auto) 5 /hpf (0-3) 10/10/17 22:00 Ur Epithelial Cells Few /HPF (FEW) 10/10/17 22:00 Urine Bacteria Many /hpf (NONE SEEN) 10/10/17 22:00 Hyaline Casts 14 /lpf 10/10/17 22:00 Urine Mucus Moderate 10/10/17 22:00 Assessment: 10/12/17 12:13 withdrawal symptom Plan: continue detox,bgm monitoring
[2017-10-12] MEDS: ALBUTEROL SO4 2.5/IPRATROPIUM 0.5 INH SOL 3 ML VIAL.NEB. NEB PRN (13:48)
[2017-10-12] MEDS: THIAMINE HCL 100 MG TABLET (FP) PO SCH (22:22)
[2017-10-12] MEDS: ATORVASTATIN CA 10 MG TABLET (FP) PO SCH (22:23)
[2017-10-12] MEDS ORDERED: metFORMIN HCL 500 MG TABLET (FP) PO ONE (23:08)
--- NOTE | 2017-10-12 23:09 | PN ---
[facility] Progress Note Note: Patient states he was taking Metformin 500 mg PO BID. Currently receiving insulin coverage for elevated point of care blood glucose results. Laboratory Tests 10/10/17 10/11/17 10/11/17 22:00 05:48 12:43 WBC RBC Hgb Hct MCV MCH MCHC RDW Plt Count MPV Sodium Potassium Chloride Carbon Dioxide Anion Gap BUN Creatinine Creat Clearance w eGFR POC Glucometer 294 291 Random Glucose Calcium Total Bilirubin AST ALT Alkaline Phosphatase Total Protein Albumin Urine Color Dot Urine Appearance Cloudy Urine pH 5.0 D Ur Specific [place] 1.036 H Urine Protein 1+ H Urine Glucose (UA) 3+ H Urine Ketones Negative Urine Blood Negative Urine Nitrite Negative Urine Bilirubin Negative Urine Urobilinogen Negative Ur Leukocyte Esterase 1+ H Urine WBC (Auto) 8 Urine RBC (Auto) 5 Ur Epithelial Cells Few Urine Bacteria Many Hyaline Casts 14 Urine Mucus Moderate RPR Titer 10/11/17 10/11/17 10/12/17 16:26 21:39 05:28 WBC RBC Hgb Hct MCV MCH MCHC RDW Plt Count MPV Sodium Potassium Chloride Carbon Dioxide Anion Gap BUN Creatinine Creat Clearance w eGFR POC Glucometer 399 357 367 Random Glucose Calcium Total Bilirubin AST ALT Alkaline Phosphatase Total Protein Albumin Urine Color Urine Appearance Urine pH Ur Specific [place] Urine Protein Urine Glucose (UA) Urine Ketones Urine Blood Urine Nitrite Urine Bilirubin Urine Urobilinogen Ur Leukocyte Esterase Urine WBC (Auto) Urine RBC (Auto) Ur Epithelial Cells Urine Bacteria Hyaline Casts Urine Mucus RPR Titer 10/12/17 10/12/17 10/12/17 07:30 07:30 07:30 WBC 7.5 RBC 4.43 Hgb 13.6 Hct 41.3 MCV 93.2 MCH 30.8 MCHC 33.1 RDW 14.4 Plt Count 249 MPV 8.0 Sodium 136 Potassium 4.2 Chloride 99 Carbon Dioxide 31 Anion Gap 6 L BUN 14 D Creatinine 0.8 Creat Clearance w eGFR > 60 POC Glucometer Random Glucose 275 H Calcium 9.1 Total Bilirubin 0.3 D AST 35 ALT 82 H Alkaline Phosphatase 189 H D Total Protein 7.8 Albumin 3.9 Urine Color Urine Appearance Urine pH Ur Specific [place] Urine Protein Urine Glucose (UA) Urine Ketones Urine Blood Urine Nitrite Urine Bilirubin Urine Urobilinogen Ur Leukocyte Esterase Urine WBC (Auto) Urine RBC (Auto) Ur Epithelial Cells Urine Bacteria Hyaline Casts Urine Mucus RPR Titer Nonreactive 10/12/17 11:41 WBC RBC Hgb Hct MCV MCH MCHC RDW Plt Count MPV Sodium Potassium Chloride Carbon Dioxide Anion Gap BUN Creatinine Creat Clearance w eGFR POC Glucometer 380 Random Glucose Calcium Total Bilirubin AST ALT Alkaline Phosphatase Total Protein Albumin Urine Color Urine Appearance Urine pH Ur Specific [place] Urine Protein Urine Glucose (UA) Urine Ketones Urine Blood Urine Nitrite Urine Bilirubin Urine Urobilinogen Ur Leukocyte Esterase Urine WBC (Auto) Urine RBC (Auto) Ur Epithelial Cells Urine Bacteria Hyaline Casts Urine Mucus RPR Titer Will start on Metformin 500 mg PO BID and continue POC glucose testing. Stat dose this HS.
[2017-10-13] MEDS: chlordiazePOXIDE HCL 10 MG CAPSULE PO SCH ×4 (05:35→22:06)
[2017-10-13] MEDS: metFORMIN HCL 500 MG TABLET (FP) PO SCH ×2 (06:10→16:58)
[2017-10-13] MEDS: INSULIN (NOVOLOG) ASPART 100 UNITS/ML 10ML VIAL SQ SCH ×4 (06:11→22:07)
[2017-10-13] MEDS ORDERED: INSULIN (NOVOLOG) ASPART 100 UNITS/ML 10ML VIAL ONE ×4 (06:19→22:11)
[2017-10-13] MEDS: ALBUTEROL SO4 18 GM HFA INHALER IH SCH ×4 (07:30→22:07)
[2017-10-13] MEDS ORDERED: METHADONE HCL 5 MG TABLET (FOR DETOX USE ONLY) PO ONE (10:00)
[2017-10-13] MEDS: NAPROXEN 500 MG TABLET (FP) PO SCH ×2 (10:10→22:06)
[2017-10-13] MEDS: NICOTINE 14 MG/24 HOURS TOPICAL PATCH TD SCH (10:10)
[2017-10-13] MEDS: PRENATAL VITAMINS W/ FOLIC ACID TABLET (FP) PO SCH (10:10)
[2017-10-13] MEDS: GABAPENTIN 400 MG CAPSULE (FP) PO SCH ×2 (10:10→22:06)
[2017-10-13] MEDS: SERTRALINE HCL 50 MG TABLET (FP) PO SCH (10:10)
[2017-10-13] MEDS: ASPIRIN 81 MG CHEWABLE TABLETS PO SCH (10:10)
[2017-10-13] MEDS: HYDROCHLOROTHIAZIDE 12.5 MG CAPSULE (FP) PO SCH (10:10)
[2017-10-13] MEDS: VITAMIN E 400 INTERNATIONAL-UNITS CAPSULE (FP) PO SCH (10:11)
[2017-10-13] MEDS: TOLNAFTATE 1% CREAM 15 GM TUBE TP SCH ×2 (10:11→22:07)
[2017-10-13] MEDS: ALBUTEROL SO4 2.5/IPRATROPIUM 0.5 INH SOL 3 ML VIAL.NEB. NEB PRN ×2 (11:40→21:45)
--- NOTE | 2017-10-13 12:22 | PN ---
S Progress Note (SOAP) Subjective: alert,irritable,anxious,interrupted sleep,tremor,pain in the body and back Objective: 10/13/17 12:36 Vital Signs Temperature 97.9 F 10/13/17 10:25 Pulse Rate 100 H 10/13/17 10:25 Respiratory Rate 18 10/13/17 10:25 Blood Pressure 136/81 10/13/17 10:25 O2 Sat by Pulse Oximetry (%) Laboratory Last Values WBC 7.5 K/mm3 (4.0-10.0) 10/12/17 07:30 RBC 4.43 M/mm3 (4.00-5.60) 10/12/17 07:30 Hgb 13.6 GM/dL (11.7-16.9) 10/12/17 07:30 Hct 41.3 % (35.4-49) 10/12/17 07:30 MCV 93.2 fl (80-96) 10/12/17 07:30 MCH 30.8 pg (25.7-33.7) 10/12/17 07:30 MCHC 33.1 g/dl (32.0-35.9) 10/12/17 07:30 RDW 14.4 % (11.9-15.9) 10/12/17 07:30 Plt Count 249 K/MM3 (134-434) 10/12/17 07:30 MPV 8.0 fl (7.5-11.1) 10/12/17 07:30 Sodium 136 mmol/L (136-145) 10/12/17 07:30 Potassium 4.2 mmol/L (3.5-5.1) 10/12/17 07:30 Chloride 99 mmol/L (98-107) 10/12/17 07:30 Carbon Dioxide 31 mmol/L (21-32) 10/12/17 07:30 Anion Gap 6 (8-16) L 10/12/17 07:30 BUN 14 mg/dL (7-18) D 10/12/17 07:30 Creatinine 0.8 mg/dL (0.7-1.3) 10/12/17 07:30 Creat Clearance w eGFR > 60 (>60) 10/12/17 07:30 POC Glucometer 427 UNITS (80-120) 10/13/17 11:42 Random Glucose 275 mg/dL (74-106) H 10/12/17 07:30 Calcium 9.1 mg/dL (8.5-10.1) 10/12/17 07:30 Total Bilirubin 0.3 mg/dL (0.2-1.0) D 10/12/17 07:30 AST 35 U/L (15-37) 10/12/17 07:30 ALT 82 U/L (12-78) H 10/12/17 07:30 Alkaline Phosphatase 189 U/L (45-117) H D 10/12/17 07:30 Total Protein 7.8 g/dl (6.4-8.2) 10/12/17 07:30 Albumin 3.9 g/dl (3.4-5.0) 10/12/17 07:30 Urine Color Dot 10/10/17 22:00 Urine Appearance Cloudy 10/10/17 22:00 Urine pH 5.0 (5.0-8.0) D 10/10/17 22:00 Ur Specific [place] 1.036 (1.001-1.035) H 10/10/17 22:00 Urine Protein 1+ (NEGATIVE) H 10/10/17 22:00 Urine Glucose (UA) 3+ (NEGATIVE) H 10/10/17 22:00 Urine Ketones Negative (NEGATIVE) 10/10/17 22:00 Urine Blood Negative (NEGATIVE) 10/10/17 22:00 Urine Nitrite Negative (NEGATIVE) 10/10/17 22:00 Urine Bilirubin Negative (<2.0 mg/dL) 10/10/17 22:00 Urine Urobilinogen Negative mg/dL (0.2-1.0) 10/10/17 22:00 Ur Leukocyte Esterase 1+ (NEGATIVE) H 10/10/17 22:00 Urine WBC (Auto) 8 /hpf (3-5) 10/10/17 22:00 Urine RBC (Auto) 5 /hpf (0-3) 10/10/17 22:00 Ur Epithelial Cells Few /HPF (FEW) 10/10/17 22:00 Urine Bacteria Many /hpf (NONE SEEN) 10/10/17 22:00 Hyaline Casts 14 /lpf 10/10/17 22:00 Urine Mucus Moderate 10/10/17 22:00 RPR Titer Nonreactive (NONREACTIVE) 10/12/17 07:30 Assessment: 06/09/18 12:37 withdrawal symptom Plan: continue detox,bgm monitoring with inulin coverage
[2017-10-13] MEDS: NICOTINE POLACRILEX 2 MG GUM BC PRN ×2 (13:49→22:13)
[2017-10-13] MEDS: ATORVASTATIN CA 10 MG TABLET (FP) PO SCH (22:06)
[2017-10-13] MEDS: THIAMINE HCL 100 MG TABLET (FP) PO SCH (22:06)
[2017-10-13] MEDS: ZOLPIDEM TARTRATE 5 MG TABLET PO PRN (22:06)
[2017-10-14] MEDS ORDERED: INSULIN (NOVOLOG) ASPART 100 UNITS/ML 10ML VIAL ONE ×3 (05:59→22:27)
[2017-10-14] MEDS: metFORMIN HCL 500 MG TABLET (FP) PO SCH ×2 (06:49→17:06)
[2017-10-14] MEDS: INSULIN (NOVOLOG) ASPART 100 UNITS/ML 10ML VIAL SQ SCH ×4 (06:49→22:45)
[2017-10-14] MEDS: ALBUTEROL SO4 18 GM HFA INHALER IH SCH ×4 (08:00→20:55)
[2017-10-14] MEDS: ALBUTEROL SO4 2.5/IPRATROPIUM 0.5 INH SOL 3 ML VIAL.NEB. NEB PRN ×2 (09:41→20:50)
[2017-10-14] MEDS ORDERED: METHADONE HCL 10 MG TABLET (FOR DETOX USE ONLY) PO SCH (10:00)
[2017-10-14] MEDS ORDERED: METHADONE HCL 5 MG TABLET (FOR DETOX USE ONLY) PO ONE (10:00)
[2017-10-14] MEDS: HYDROCHLOROTHIAZIDE 12.5 MG CAPSULE (FP) PO SCH (10:12)
[2017-10-14] MEDS: NAPROXEN 500 MG TABLET (FP) PO SCH ×2 (10:12→22:24)
[2017-10-14] MEDS: SERTRALINE HCL 50 MG TABLET (FP) PO SCH (10:12)
[2017-10-14] MEDS: ASPIRIN 81 MG CHEWABLE TABLETS PO SCH (10:12)
[2017-10-14] MEDS: GABAPENTIN 400 MG CAPSULE (FP) PO SCH ×2 (10:12→22:24)
[2017-10-14] MEDS: VITAMIN E 400 INTERNATIONAL-UNITS CAPSULE (FP) PO SCH (10:13)
[2017-10-14] MEDS: TOLNAFTATE 1% CREAM 15 GM TUBE TP SCH ×2 (10:13→22:25)
[2017-10-14] MEDS: PRENATAL VITAMINS W/ FOLIC ACID TABLET (FP) PO SCH (10:13)
[2017-10-14] MEDS: NICOTINE 14 MG/24 HOURS TOPICAL PATCH TD SCH (10:17)
[2017-10-14] MEDS: NICOTINE POLACRILEX 2 MG GUM BC PRN (10:17)
--- NOTE | 2017-10-14 13:41 | PN ---
[facility] Progress Note (SOAP) Subjective: feeling better less sweat no tremor mild body ache Objective: 10/14/17 13:40 Vital Signs Temperature 97.7 F 10/14/17 09:53 Pulse Rate 95 H 10/14/17 09:53 Respiratory Rate 104 H 10/14/17 09:53 Blood Pressure 152/94 10/14/17 09:53 O2 Sat by Pulse Oximetry (%) Laboratory Last Values WBC 7.5 K/mm3 (4.0-10.0) 10/12/17 07:30 RBC 4.43 M/mm3 (4.00-5.60) 10/12/17 07:30 Hgb 13.6 GM/dL (11.7-16.9) 10/12/17 07:30 Hct 41.3 % (35.4-49) 10/12/17 07:30 MCV 93.2 fl (80-96) 10/12/17 07:30 MCH 30.8 pg (25.7-33.7) 10/12/17 07:30 MCHC 33.1 g/dl (32.0-35.9) 10/12/17 07:30 RDW 14.4 % (11.9-15.9) 10/12/17 07:30 Plt Count 249 K/MM3 (134-434) 10/12/17 07:30 MPV 8.0 fl (7.5-11.1) 10/12/17 07:30 Sodium 136 mmol/L (136-145) 10/12/17 07:30 Potassium 4.2 mmol/L (3.5-5.1) 10/12/17 07:30 Chloride 99 mmol/L (98-107) 10/12/17 07:30 Carbon Dioxide 31 mmol/L (21-32) 10/12/17 07:30 Anion Gap 6 (8-16) L 10/12/17 07:30 BUN 14 mg/dL (7-18) D 10/12/17 07:30 Creatinine 0.8 mg/dL (0.7-1.3) 10/12/17 07:30 Creat Clearance w eGFR > 60 (>60) 10/12/17 07:30 POC Glucometer 379 UNITS (80-120) 10/14/17 11:04 Random Glucose 275 mg/dL (74-106) H 10/12/17 07:30 Calcium 9.1 mg/dL (8.5-10.1) 10/12/17 07:30 Total Bilirubin 0.3 mg/dL (0.2-1.0) D 10/12/17 07:30 AST 35 U/L (15-37) 10/12/17 07:30 ALT 82 U/L (12-78) H 10/12/17 07:30 Alkaline Phosphatase 189 U/L (45-117) H D 10/12/17 07:30 Total Protein 7.8 g/dl (6.4-8.2) 10/12/17 07:30 Albumin 3.9 g/dl (3.4-5.0) 10/12/17 07:30 Urine Color Dot 10/10/17 22:00 Urine Appearance Cloudy 10/10/17 22:00 Urine pH 5.0 (5.0-8.0) D 10/10/17 22:00 Ur Specific [place] 1.036 (1.001-1.035) H 10/10/17 22:00 Urine Protein 1+ (NEGATIVE) H 10/10/17 22:00 Urine Glucose (UA) 3+ (NEGATIVE) H 10/10/17 22:00 Urine Ketones Negative (NEGATIVE) 10/10/17 22:00 Urine Blood Negative (NEGATIVE) 10/10/17 22:00 Urine Nitrite Negative (NEGATIVE) 10/10/17 22:00 Urine Bilirubin Negative (<2.0 mg/dL) 10/10/17 22:00 Urine Urobilinogen Negative mg/dL (0.2-1.0) 10/10/17 22:00 Ur Leukocyte Esterase 1+ (NEGATIVE) H 10/10/17 22:00 Urine WBC (Auto) 8 /hpf (3-5) 10/10/17 22:00 Urine RBC (Auto) 5 /hpf (0-3) 10/10/17 22:00 Ur Epithelial Cells Few /HPF (FEW) 10/10/17 22:00 Urine Bacteria Many /hpf (NONE SEEN) 10/10/17 22:00 Hyaline Casts 14 /lpf 10/10/17 22:00 Urine Mucus Moderate 10/10/17 22:00 RPR Titer Nonreactive (NONREACTIVE) 10/12/17 07:30 lab noted Assessment: 10/14/17 13:41 mild withdrawal sx Plan: medically supervised detox
[2017-10-14] MEDS ORDERED: LISINOPRIL 10 MG TABLET (FP) PO SCH ×2 (13:45→14:30)
[2017-10-14] MEDS ORDERED: LISINOPRIL 20 MG TABLET (FP) PO SCH (14:00)
[2017-10-14] MEDS: amLODIPine BESYLATE 10 MG TABLET (FP) PO SCH (14:06)
[2017-10-14] MEDS: LABETALOL HCL 100 MG TABLET (FP) PO SCH (14:07)
[2017-10-14] MEDS: MINERAL OIL/PETROLAT/WATER TOPICAL CREAM 113 GM JAR TP SCH ×3 (14:47→22:25)
[2017-10-14] MEDS: THIAMINE HCL 100 MG TABLET (FP) PO SCH (22:24)
[2017-10-14] MEDS: ATORVASTATIN CA 10 MG TABLET (FP) PO SCH (22:24)
[2017-10-14] MEDS: ZOLPIDEM TARTRATE 5 MG TABLET PO PRN (22:24)
[2017-10-15] MEDS: ALBUTEROL SO4 2.5/IPRATROPIUM 0.5 INH SOL 3 ML VIAL.NEB. NEB PRN ×3 (03:13→19:48)
[2017-10-15] MEDS ORDERED: METHADONE HCL 5 MG TABLET (FOR DETOX USE ONLY) PO SCH (06:00)
[2017-10-15] MEDS: metFORMIN HCL 500 MG TABLET (FP) PO SCH ×2 (08:00→16:40)
[2017-10-15] MEDS: ALBUTEROL SO4 18 GM HFA INHALER IH SCH ×4 (08:00→22:22)
[2017-10-15] MEDS: INSULIN (NOVOLOG) ASPART 100 UNITS/ML 10ML VIAL SQ SCH ×4 (08:15→22:17)
[2017-10-15] MEDS ORDERED: INSULIN (NOVOLOG) ASPART 100 UNITS/ML 10ML VIAL ONE ×3 (08:32→16:40)
--- NOTE | 2017-10-15 09:00 | PN ---
[facility] Progress Note (SOAP) Subjective: alert,no complaint Objective: 10/15/17 08:58 Vital Signs Temperature 97.9 F 10/15/17 07:05 Pulse Rate 89 10/15/17 07:05 Respiratory Rate 20 10/15/17 07:05 Blood Pressure 143/79 10/15/17 07:05 O2 Sat by Pulse Oximetry (%) 10/15/17 08:59 bgm [id number] Assessment: patient is stable for discharge to rehab today Plan: follow up with after care program as arrangement
--- NOTE | 2017-10-15 09:07 | DS ---
[facility] Detox Discharge Summary Admission Date: 10/10/17 Discharge Date: 10/15/17 - History Present History: Alcohol Dependence, Cocaine Dependence Pertinent Past History: asthma hiv hemorrhoid - Physical Exam Results Vital Signs: Vital Signs Temperature 97.9 F 10/15/17 07:05 Pulse Rate 89 10/15/17 07:05 Respiratory Rate 20 10/15/17 07:05 Blood Pressure 143/79 10/15/17 07:05 O2 Sat by Pulse Oximetry (%) Pertinent Admission Physical Exam Findings: withdrawal signs and symptom - Medication Discharge Medications: Ambulatory Orders Aspirin [ASA -] 81 mg PO DAILY 10/10/17 Buprenorphine/Naloxone [Suboxone 2Mg/0.5MG Sl Film -] 2 combo SL HS 10/10/17 Naproxen [Naprosyn -] 500 mg PO BID 10/10/17 Vitamin E - 400 unit PO DAILY 10/10/17 Zolpidem Tartrate [Ambien] 5 mg PO HS 10/10/17 Sertraline HCl [Zoloft -] 50 mg PO DAILY #30 tablet 10/11/17 Albuterol Sulfate Inhaler - [Ventolin HFA Inhaler -] 2 inh PO Q4H PRN #1 inhaler 10/14/17 Amlodipine Besylate [Norvasc -] 10 mg PO DAILY #30 tablet 10/14/17 Atorvastatin Ca [Lipitor] 10 mg PO HS #30 tablet 10/14/17 Gabapentin [Neurontin -] 400 mg PO BID #60 capsule 10/14/17 Hydrochlorothiazide [Hctz -] 12.5 mg PO DAILY #30 cap 10/14/17 Labetalol HCl [Normodyne -] 100 mg PO DAILY #30 tablet 10/14/17 Lisinopril [Prinivil -] 40 mg PO DAILY #30 tablet 10/14/17 - Diagnosis (1) Opioid dependence with withdrawal Current Visit: Yes Status: Acute (2) Alcohol dependence with uncomplicated withdrawal Current Visit: Yes Status: Acute (3) Asthma Current Visit: Yes Status: Chronic Qualifiers: Asthma severity: mild Asthma persistence: intermittent Asthma complication type: uncomplicated Qualified Code(s): J45.20 - Mild intermittent asthma, uncomplicated (4) Essential hypertension Current Visit: Yes Status: Chronic (5) Gout Current Visit: Yes Status: Chronic Qualifiers: Gout site: unspecified site Gout etiology: unspecified cause Chronicity: unspecified Qualified Code(s): M10.9 - Gout, unspecified (6) Hyperlipidemia Current Visit: Yes Status: Chronic Qualifiers: Hyperlipidemia type: unspecified Qualified Code(s): E78.5 - Hyperlipidemia , unspecified (7) PCP dependence Current Visit: Yes Status: Chronic (8) IDDM (insulin dependent diabetes mellitus) Current Visit: No Status: Chronic (9) Nicotine dependence Current Visit: No Status: Chronic Qualifiers: Nicotine product type: cigarettes Substance use status: uncomplicated Qualified Code(s): F17.210 - Nicotine dependence, cigarettes, uncomplicated
[2017-10-15] MEDS ORDERED: METHADONE HCL 10 MG TABLET (FOR DETOX USE ONLY) PO ONE (10:00)
[2017-10-15] MEDS: VITAMIN E 400 INTERNATIONAL-UNITS CAPSULE (FP) PO SCH (10:28)
[2017-10-15] MEDS: TOLNAFTATE 1% CREAM 15 GM TUBE TP SCH ×2 (10:28→22:22)
[2017-10-15] MEDS: PRENATAL VITAMINS W/ FOLIC ACID TABLET (FP) PO SCH (10:29)
[2017-10-15] MEDS: LABETALOL HCL 100 MG TABLET (FP) PO SCH (10:29)
[2017-10-15] MEDS: ASPIRIN 81 MG CHEWABLE TABLETS PO SCH (10:29)
[2017-10-15] MEDS: GABAPENTIN 400 MG CAPSULE (FP) PO SCH ×2 (10:29→22:19)
[2017-10-15] MEDS: SERTRALINE HCL 50 MG TABLET (FP) PO SCH (10:29)
[2017-10-15] MEDS: NAPROXEN 500 MG TABLET (FP) PO SCH ×2 (10:29→22:19)
[2017-10-15] MEDS: amLODIPine BESYLATE 10 MG TABLET (FP) PO SCH (10:29)
[2017-10-15] MEDS: HYDROCHLOROTHIAZIDE 12.5 MG CAPSULE (FP) PO SCH (10:29)
[2017-10-15] MEDS: LISINOPRIL 10 MG TABLET (FP) PO SCH (10:30)
[2017-10-15] MEDS: NICOTINE 14 MG/24 HOURS TOPICAL PATCH TD SCH (10:30)
[2017-10-15] MEDS: MINERAL OIL/PETROLAT/WATER TOPICAL CREAM 113 GM JAR TP SCH ×4 (10:30→22:22)
[2017-10-15] MEDS: THIAMINE HCL 100 MG TABLET (FP) PO SCH (22:18)
[2017-10-15] MEDS: ATORVASTATIN CA 10 MG TABLET (FP) PO SCH (22:18)
[2017-10-16] MEDS: ALBUTEROL SO4 2.5/IPRATROPIUM 0.5 INH SOL 3 ML VIAL.NEB. NEB PRN (05:14)
[2017-10-16] MEDS ORDERED: METHADONE HCL 5 MG TABLET (FOR DETOX USE ONLY) PO ONE (06:00)
[2017-10-16] MEDS: metFORMIN HCL 500 MG TABLET (FP) PO SCH (06:56)
[2017-10-16] MEDS: INSULIN (NOVOLOG) ASPART 100 UNITS/ML 10ML VIAL SQ SCH (06:57)
[2017-10-16] MEDS ORDERED: INSULIN (NOVOLOG) ASPART 100 UNITS/ML 10ML VIAL ONE (07:04)
[2017-10-16] MEDS: ALBUTEROL SO4 18 GM HFA INHALER IH SCH (07:08)
[2017-10-16 09:26] VITALS: BP 149/91; PULSE 114; TEMP 98.1
[2017-10-16] MEDS: LISINOPRIL 10 MG TABLET (FP) PO SCH (09:35)
[2017-10-16] MEDS: ASPIRIN 81 MG CHEWABLE TABLETS PO SCH (09:35)
[2017-10-16] MEDS: amLODIPine BESYLATE 10 MG TABLET (FP) PO SCH (09:35)
[2017-10-16] MEDS: NAPROXEN 500 MG TABLET (FP) PO SCH (09:35)
[2017-10-16] MEDS: SERTRALINE HCL 50 MG TABLET (FP) PO SCH (09:35)
[2017-10-16] MEDS: HYDROCHLOROTHIAZIDE 12.5 MG CAPSULE (FP) PO SCH (09:36)
[2017-10-16] MEDS: VITAMIN E 400 INTERNATIONAL-UNITS CAPSULE (FP) PO SCH (09:36)
[2017-10-16] MEDS: PRENATAL VITAMINS W/ FOLIC ACID TABLET (FP) PO SCH (09:36)
[2017-10-16] MEDS: LABETALOL HCL 100 MG TABLET (FP) PO SCH (09:36)
[2017-10-16] MEDS: TOLNAFTATE 1% CREAM 15 GM TUBE TP SCH (09:38)
--- NOTE | 2017-10-16 09:56 | PN ---
S Progress Note (SOAP) Subjective: alert,no complaint Objective: 10/16/17 09:55 Vital Signs Temperature 98.1 F 10/16/17 09:25 Pulse Rate 114 H 10/16/17 09:25 Respiratory Rate 18 10/16/17 09:25 Blood Pressure 149/91 10/16/17 09:25 O2 Sat by Pulse Oximetry (%) Assessment: 10/16/17 09:55 detox completed,no withdrawal symptom Plan: discharge today,follow up with after care program as arrangement
--- NOTE | 2017-10-16 10:02 | DS ---
[facility] Detox Discharge Summary Admission Date: 10/10/17 Discharge Date: 10/16/17 - History Present History: Alcohol Dependence, Opioid Dependence Additional Comments: follow up with after care program as arrangement [facility] - Physical Exam Results Vital Signs: Vital Signs Temperature 98.1 F 10/16/17 09:25 Pulse Rate 114 H 10/16/17 09:25 Respiratory Rate 18 10/16/17 09:25 Blood Pressure 149/91 10/16/17 09:25 O2 Sat by Pulse Oximetry (%) Pertinent Admission Physical Exam Findings: withdrawal signs and symptom Vital Signs Temperature 98.1 F 10/16/17 09:25 Pulse Rate 114 H 10/16/17 09:25 Respiratory Rate 18 10/16/17 09:25 Blood Pressure 149/91 10/16/17 09:25 O2 Sat by Pulse Oximetry (%) Laboratory Last Values WBC 7.5 K/mm3 (4.0-10.0) 10/12/17 07:30 RBC 4.43 M/mm3 (4.00-5.60) 10/12/17 07:30 Hgb 13.6 GM/dL (11.7-16.9) 10/12/17 07:30 Hct 41.3 % (35.4-49) 10/12/17 07:30 MCV 93.2 fl (80-96) 10/12/17 07:30 MCH 30.8 pg (25.7-33.7) 10/12/17 07:30 MCHC 33.1 g/dl (32.0-35.9) 10/12/17 07:30 RDW 14.4 % (11.9-15.9) 10/12/17 07:30 Plt Count 249 K/MM3 (134-434) 10/12/17 07:30 MPV 8.0 fl (7.5-11.1) 10/12/17 07:30 Sodium 136 mmol/L (136-145) 10/12/17 07:30 Potassium 4.2 mmol/L (3.5-5.1) 10/12/17 07:30 Chloride 99 mmol/L (98-107) 10/12/17 07:30 Carbon Dioxide 31 mmol/L (21-32) 10/12/17 07:30 Anion Gap 6 (8-16) L 10/12/17 07:30 BUN 14 mg/dL (7-18) D 10/12/17 07:30 Creatinine 0.8 mg/dL (0.7-1.3) 10/12/17 07:30 Creat Clearance w eGFR > 60 (>60) 10/12/17 07:30 POC Glucometer 276 UNITS (80-120) 10/16/17 05:10 Random Glucose 275 mg/dL (74-106) H 10/12/17 07:30 Calcium 9.1 mg/dL (8.5-10.1) 10/12/17 07:30 Total Bilirubin 0.3 mg/dL (0.2-1.0) D 10/12/17 07:30 AST 35 U/L (15-37) 10/12/17 07:30 ALT 82 U/L (12-78) H 10/12/17 07:30 Alkaline Phosphatase 189 U/L (45-117) H D 10/12/17 07:30 Total Protein 7.8 g/dl (6.4-8.2) 10/12/17 07:30 Albumin 3.9 g/dl (3.4-5.0) 10/12/17 07:30 Urine Color Dot 10/10/17 22:00 Urine Appearance Cloudy 10/10/17 22:00 Urine pH 5.0 (5.0-8.0) D 10/10/17 22:00 Ur Specific [place] 1.036 (1.001-1.035) H 10/10/17 22:00 Urine Protein 1+ (NEGATIVE) H 10/10/17 22:00 Urine Glucose (UA) 3+ (NEGATIVE) H 10/10/17 22:00 Urine Ketones Negative (NEGATIVE) 10/10/17 22:00 Urine Blood Negative (NEGATIVE) 10/10/17 22:00 Urine Nitrite Negative (NEGATIVE) 10/10/17 22:00 Urine Bilirubin Negative (<2.0 mg/dL) 10/10/17 22:00 Urine Urobilinogen Negative mg/dL (0.2-1.0) 10/10/17 22:00 Ur Leukocyte Esterase 1+ (NEGATIVE) H 10/10/17 22:00 Urine WBC (Auto) 8 /hpf (3-5) 10/10/17 22:00 Urine RBC (Auto) 5 /hpf (0-3) 10/10/17 22:00 Ur Epithelial Cells Few /HPF (FEW) 10/10/17 22:00 Urine Bacteria Many /hpf (NONE SEEN) 10/10/17 22:00 Hyaline Casts 14 /lpf 10/10/17 22:00 Urine Mucus Moderate 10/10/17 22:00 RPR Titer Nonreactive (NONREACTIVE) 10/12/17 07:30 - Treatment Hospital Course: Detox Protocol Followed, Detoxed Safely, Responded well, Discharged Condition Good Patient has Accepted a Rehab Referral to: declined - Medication Discharge Medications: Ambulatory Orders Aspirin [ASA -] 81 mg PO DAILY 10/10/17 Buprenorphine/Naloxone [Suboxone 2Mg/0.5MG Sl Film -] 2 combo SL HS 10/10/17 Naproxen [Naprosyn -] 500 mg PO BID 10/10/17 Vitamin E - 400 unit PO DAILY 10/10/17 Zolpidem Tartrate [Ambien] 5 mg PO HS 10/10/17 Sertraline HCl [Zoloft -] 50 mg PO DAILY #30 tablet 10/11/17 Albuterol Sulfate Inhaler - [Ventolin HFA Inhaler -] 2 inh PO Q4H PRN #1 inhaler 10/14/17 Amlodipine Besylate [Norvasc -] 10 mg PO DAILY #30 tablet 10/14/17 Atorvastatin Ca [Lipitor] 10 mg PO HS #30 tablet 10/14/17 Gabapentin [Neurontin -] 400 mg PO BID #60 capsule 10/14/17 Hydrochlorothiazide [Hctz -] 12.5 mg PO DAILY #30 cap 10/14/17 Labetalol HCl [Normodyne -] 100 mg PO DAILY #30 tablet 10/14/17 Lisinopril [Prinivil -] 40 mg PO DAILY #30 tablet 10/14/17 - Diagnosis (1) Opioid dependence with withdrawal Current Visit: Yes Status: Acute (2) Alcohol dependence with uncomplicated withdrawal Current Visit: Yes Status: Acute (3) Asthma Current Visit: Yes Status: Chronic Qualifiers: Asthma severity: mild Asthma persistence: intermittent Asthma complication type: uncomplicated Qualified Code(s): J45.20 - Mild intermittent asthma, uncomplicated (4) Essential hypertension Current Visit: Yes Status: Chronic (5) Gout Current Visit: Yes Status: Chronic Qualifiers: Gout site: unspecified site Gout etiology: unspecified cause Chronicity: unspecified Qualified Code(s): M10.9 - Gout, unspecified (6) Hyperlipidemia Current Visit: Yes Status: Chronic Qualifiers: Hyperlipidemia type: unspecified Qualified Code(s): E78.5 - Hyperlipidemia , unspecified (7) PCP dependence Current Visit: Yes Status: Chronic (8) IDDM (insulin dependent diabetes mellitus) Current Visit: No Status: Chronic (9) Nicotine dependence Current Visit: No Status: Chronic Qualifiers: Nicotine product type: cigarettes Substance use status: uncomplicated Qualified Code(s): F17.210 - Nicotine dependence, cigarettes, uncomplicated - AMA Did Patient Leave Against Medical Advice: No
--- NOTE | 2017-10-16 10:06 | PN ---
[facility] Progress Note Note: patient has all medications with him
== END 2017-10-16 09:38 | disposition home or self-care (01) | DRG 773 ==
LOC: YASAS 15:33 → Y6N 19:15
PROVIDERS: ADMIT Surgery; ATTEND Surgery
PROC: HZ2ZZZZ Detoxification Services for Substance Abuse Treatment (ICD-10-PCS; principal; 2017-10-10)
DX: F11.23 Opioid dependence with withdrawal (principal); F10.230 Alcohol dependence with withdrawal, uncomplicated; F16.20 Hallucinogen dependence, uncomplicated; F17.210 Nicotine dependence, cigarettes, uncomplicated; F10.24 Alcohol dependence with alcohol-induced mood disorder; I10 Essential (primary) hypertension; E78.5 Hyperlipidemia, unspecified; J45.20 Mild intermittent asthma, uncomplicated; M10.9 Gout, unspecified; E11.65 Type 2 diabetes mellitus with hyperglycemia; R00.0 Tachycardia, unspecified; I45.81 Long QT syndrome; E66.9 Obesity, unspecified; Z68.37 Body mass index [BMI] 37.0-37.9, adult; Z79.4 Long term (current) use of insulin; Z79.84 Long term (current) use of oral hypoglycemic drugs; Z91.048 Other nonmedicinal substance allergy status
CPT/HCPCS: 36415; 80053; 81003; 81015; 82962; 85027; 86593; 93005; 93010; 94640; J7620